=== PATIENT | female | born 1965 | race Caucasian/White ===

== ENCOUNTER 2020-08-05 09:22 | Emergency (ER) | payer MEDICAID ==
[2012-05-12 19:29] VITALS: BP 170/90
[2020-08-05] MEDS ORDERED: MORPHINE SULFATE 4 MG INJ IV ONE (09:55)
[2020-08-05] MEDS ORDERED: Zofran 4 MG/2 ML VIAL IV ONE (09:55)
[2020-08-05 10:15] LABS: Absolute Neutrophil Ct (ANC) 6.44 (1.4-6.9); BASOPHIL % 0.2 % (0.0-0.4); Basophil (Absolute #) 0.02 (0-0.4); Eosinophil % 1.9 % (0.00-5.0); Eosinophil (Absolute #) 0.18 (0-0.5); Hematocrit 35.7 % (35-47); Hemoglobin 11.2 gm/dl (12.0-16.0); Lymphocyte (Absolute #) 2.21 (1.0-4.6); Mean Cell Volume 89.3 fl (78-100); Mean Corpuscular Hgb Concent. 31.4 g/dl (32-36); Mean Platelet Volume 8.8 fl (7.5-11.0); Monocyte (Absolute #) 0.76 (0.0-1.3); Monocytes % 7.9 % (0.0-12.0); Platelet Count 409 K/mm3 (150-450); Red Cell Distribution Width 14.9 % (11.5-14.0); White Blood Count 9.6 K/mm3 (4.0-10.5)
[2020-08-05] MEDS ORDERED: Zofran 4 MG/2 ML VIAL ONE (10:17)
[2020-08-05] MEDS ORDERED: MORPHINE SULFATE 4 MG INJ ONE (10:17)
[2020-08-05 10:28] LABS: ALBUMIN 3.5 g/dL (3.5-5.0); ALKALINE PHOSPHATASE 73 U/L (38-126); ANION GAP 10.1 MEQ/L (5-15); BLOOD UREA NITROGEN 15 mg/dL (7-17); CHLORIDE 98 mmol/L (98-107); Calcium 8.8 mg/dL (8.4-10.2); Carbon Dioxide 31 mmol/L (22-30); Creatinine 1 0.61 mg/dL (0.52-1.04); EST GLOMERULAR FILTRATION RATE > 60.0 ML/MIN; Glucose 101 mg/dL (74-106); Potassium 3.5 mmol/L (3.5-5.1); SGOT/AST 19 U/L (14-36); SGPT/ALT 20 U/L (0-35); SODIUM 136 mmol/L (137-145); Total Protein 7.5 g/dL (6.3-8.2)
[2020-08-05] MEDS ORDERED: CLINDAMYCIN-D5W 600 MG/50 ML*** 600 MG/50 ML BAG IV STA (11:29)
[2020-08-05] MEDS ORDERED: CLINDAMYCIN-D5W 600 MG/50 ML*** 600 MG/50 ML BAG IV ONE (12:00)
--- NOTE | 2020-08-05 12:02 | ERPHSYRPT ---
- History of Present Illness Time Seen by Provider: 08/05/20 09:39 Source: patient Exam Limitations: no limitations Patient Subjective Stated Complaint: Pain/swelling to right knee that began yesterday when she awoke. Pt awoke this AM with increased redness/swelling/blisters to right knee. Pt has prior hx of knee replacement 3 years ago to right knee. Triage Nursing Assessment: Pt complains of right knee pain rated 10/10 and described sharp. Pain began yesterday AM at 0940 with redness/swelling/edema noted to right knee. Pt awoke this AM with blisters noted to area along with other findings. Right knee has redness/swelling/blisters noted, right knee is hot to touch. Right knee at anterior aspect of patella has open wound seen measuring 1 cm in diameter. Physician History: 54 years old female with multiple medical problems including diabetes mellitus, right knee replacement 3 years ago presented in the ER with sudden onset redness and pain right knee since yesterday with progressive worsening associated with moderate intensity dull to sharp pain which is aggravated with ambulation and better with being still. She denies any fever chills fall or trauma to the knee. Method of Injury: unknown Occurred: yesterday Quality: constant, sharpness Severity of Pain-Max: moderate Severity of Pain-Current: moderate Lower Extremities Pain: knee: right Modifying Factors: Improves With: immobilization, rest. Worsens With: movement Associated Symptoms: none Allergies/Adverse Reactions: codeine [Codeine] Allergy (Mild, Verified 08/05/20 10:13) N&V Penicillins Allergy (Mild, Verified 08/05/20 10:13) Rash Home Medications: Acetaminophen 325 mg [Tylenol 325 mg] 650 mg PO Q4HPRN PRN 02/15/12 [History] Albuterol Common Canister [Proventil Common Canister] 2 puff IH Q4HPRN PRN 02/15/12 [History] Albuterol/Ipratropium 3ml Neb* [DUONEB 0.5-3 MG/3 ml Neb] 3 ml IH Q2H/PRN PRN 02/15/12 [History] Aripiprazole [Abilify] 5 mg PO DAILY 02/15/12 [History] Atenolol [Tenormin] 25 mg PO BID 02/15/12 [History] Bisacodyl 10 mg [Dulcolax 10 MG SUPP] 10 mg RC DAILY PRN PRN 02/15/12 [History] Budesonide 0.5 mg/2 ml [Pulmicort 0.5 mg/2 ml Respules] 0.5 mg IH BID 02/15/12 [History] Docusate Sodium 100 mg [Colace 100 MG] 100 mg PO BID 02/15/12 [History] Fluoxetine HCl [Prozac] 40 mg PO DAILY 02/15/12 [History] Hydrocodone Bit/Acetaminophen [Vicodin 5-500 Tablet] 1 each PO Q6HPRN PRN 02/15/12 [History] Lorazepam 0.5 mg [Ativan 0.5 MG] 0.5 mg PO BID 02/15/12 [History] Lorazepam [Ativan] 2 mg PO HS 02/15/12 [History] Magnesium Hydroxide 30 ml [Milk of Magnesia 30 ml] 30 ml PO HSPRN PRN 02/15/12 [History] Modafinil [Provigil] 200 mg PO DAILY 02/15/12 [History] Multivit-Min/Ferrous Sulfate [Multilex] 1 each PO DAILY 02/15/12 [History] Tramadol HCl 50 mg [Ultram 50 mg] 50 mg PO Q6HPRN PRN 02/15/12 [History] Diphenhydramine HCl 25 mg 50 mg PO Q6H PRN PRN 05/12/12 [History] Docusate Sodium 100 mg 100 mg PO BID 05/12/12 [History] Losartan Potassium 100 mg PO DAILY 05/12/12 [History] Hx Tetanus, Diphtheria Vaccination/Date Given: No (unknown) Hx Influenza Vaccination/Date Given: No Hx Pneumococcal Vaccination/Date Given: Yes (unknown when) Immunizations Up to Date: Yes Travel Risk - International Travel Have you traveled outside of the country in past 3 weeks: No - Coronavirus Screening Are you exhibiting any of the following symptoms?: No Close contact with a COVID-19 positive Pt in past 14-21 Days: No - Review of Systems Constitutional: No Symptoms Eyes: No Symptoms Ears, Nose, & Throat: No Symptoms Respiratory: No Symptoms Cardiac: No Symptoms Abdominal/Gastrointestinal: No Symptoms Genitourinary Symptoms: No Symptoms Musculoskeletal: Joint Redness, Joint Pain, Joint Swelling Neurological: No Symptoms Psychological: Anxiety Endocrine: No Symptoms Hematologic/Lymphatic: No Symptoms Immunological/Allergic: No Symptoms - Past Medical History Pertinent Past Medical History: Yes Neurological History: Other Cardiac History: No Pertinent History Respiratory History: Asthma, COPD, Sleep Apnea Endocrine Medical History: Diabetes Type II Musculoskeletal History: No Pertinent History GI Medical History: Crohns Disease History: No Pertinent History Psycho-Social History: No Pertinent History Female Reproductive Disorders: No Pertinent History Other Medical History: Down syndrome reported - Past Surgical History Past Surgical History: Yes Neuro Surgical History: No Pertinent History Cardiac: No Pertinent History Respiratory: No Pertinent History Gastrointestinal: No Pertinent History Genitourinary: No Pertinent History Musculoskeletal: Joint Replacement Female Surgical History: Section Other Surgical History: right knee replacement - Social History Smoking Status: Former smoker Exposure to second hand smoke: No Drug Use: none Patient Lives Alone: No Significant Family History: no pertinent family hx - Female History Hx Last Menstrual Period: menapause Hx Now: No - Nursing Vital Signs Nursing Vital Signs: Initial Vital Signs Temperature 98.1 F 08/05/20 09:46 Pulse Rate 88 08/05/20 09:46 Respiratory Rate 20 08/05/20 09:46 Blood Pressure 142/106 08/05/20 09:46 O2 Sat by Pulse Oximetry 97 08/05/20 09:46 Pain Scale Pain Intensity 5 - Physical Exam General Appearance: no apparent distress, alert Eyes, Ears, Nose, Throat Exam: pharynx normal Neck Exam: normal inspection, supple, full range of motion Cardiovascular/Respiratory Exam: normal breath sounds, regular rate/rhythm Gastrointestinal/Abdominal Exam: non-tender, soft, no organomegaly Back Exam: normal inspection, normal range of motion Hips Exam: bilateral: non-tender, normal inspection, normal range of motion Legs Exam: bilateral leg: non-tender, normal inspection, normal range of motion, no evidence of injury Knees Exam: right knee: pain, soft tissue tenderness, swelling (Right anterolateral knee swelling and erythema), left knee: non-tender, normal inspection, normal range of motion, no evidence of injury, bilateral knee: bone tenderness Ankle Exam: bilateral ankle: non-tender, normal inspection, normal range of motion, no evidence of injury Neuro/Tendon Exam: normal sensation, normal motor functions Mental Status Exam: alert, oriented x 3, cooperative Skin Exam: normal color SpO2 Interpretation: normal SpO2: 96 O2 Delivery: Room Air Ordered Tests: Active Orders 24 hr Category Date Time Status IV Insertion STAT Care 08/05/20 09:55 Active KNEE (3 VIEWS) Stat Exams 08/05/20 11:03 Taken BLOOD CULTURE Stat Lab 08/05/20 10:10 Received CBC W DIFF Stat Lab 08/05/20 10:05 Completed CMP Stat Lab 08/05/20 10:05 Completed Lactic Acid Stat Lab 08/05/20 09:55 Completed Medication Summary Generic Name Dose Route Start Last Admin Trade Name Freq PRN Reason Stop Dose Admin Ceftriaxone Sodium/Dextrose 1 g in 50 mls @ 100 mls/hr 08/05/20 12:16 Rocephin 1 Gm-D5w 50 Ml Bag IV 08/05/20 12:45 STAT STA Discontinued Medications Generic Name Dose Route Start Last Admin Trade Name Freq PRN Reason Stop Dose Admin Clindamycin HCl/Dextrose 600 mg in 50 mls @ 100 mls/hr 08/05/20 11:29 08/05/20 12:01 Clindamycin-D5w 600 Mg/50 Ml IV 08/05/20 11:58 100 ml/hr STAT STA 100 mls/hr Administration Clindamycin HCl/Dextrose Confirm 08/05/20 12:00 Clindamycin-D5w 600 Mg/50 Ml Administered 08/05/20 12:01 Dose 600 mg in 50 mls @ ud IV .STK-MED ONE Morphine Sulfate 4 mg 08/05/20 09:55 08/05/20 10:26 Morphine Sulfate 4 Mg Inj IV 08/05/20 09:56 4 mg STAT ONE Administration Morphine Sulfate Confirm 08/05/20 10:17 Morphine Sulfate 4 Mg Inj Administered 08/05/20 10:18 Dose 4 mg .ROUTE .STK-MED ONE Ondansetron HCl 4 mg 08/05/20 09:55 08/05/20 10:26 Zofran 4 Mg/2 Ml Vial IV 08/05/20 09:56 4 mg STAT ONE Administration Ondansetron HCl Confirm 08/05/20 10:17 Zofran 4 Mg/2 Ml Vial Administered 08/05/20 10:18 Dose 4 mg .ROUTE .STK-MED ONE Lab/Rad Data: Laboratory Result Diagrams 08/05/20 10:05 08/05/20 10:05 Laboratory Results 08/05/20 08/05/20 08/05/20 Range/Units 10:05 10:05 09:55 WBC 9.6 (4.0-10.5) K/mm3 RBC 4.00 L (4.1-5.4) M/mm3 Hgb 11.2 L (12.0-16.0) gm/dl Hct 35.7 (35-47) % MCV 89.3 (78-100) fl MCH 28.0 (26-32) pg MCHC 31.4 L (32-36) g/dl RDW 14.9 H (11.5-14.0) % Plt Count 409 (150-450) K/mm3 MPV 8.8 (7.5-11.0) fl Gran % 67.0 H (36.0-66.0) % Eos # (Auto) 0.18 (0-0.5) Absolute Lymphs (auto) 2.21 (1.0-4.6) Absolute Monos (auto) 0.76 (0.0-1.3) Lymphocytes % 23.0 L (24.0-44.0) % Monocytes % 7.9 (0.0-12.0) % Eosinophils % 1.9 (0.00-5.0) % Basophils % 0.2 (0.0-0.4) % Absolute Granulocytes 6.44 (1.4-6.9) Basophils # 0.02 (0-0.4) Sodium 136 L (137-145) mmol/L Potassium 3.5 (3.5-5.1) mmol/L Chloride 98 (98-107) mmol/L Carbon Dioxide 31 H (22-30) mmol/L Anion Gap 10.1 (5-15) MEQ/L BUN 15 (7-17) mg/dL Creatinine 0.61 (0.52-1.04) mg/dL Estimated GFR > 60.0 ML/MIN Glucose 101 (74-106) mg/dL Lactic Acid 1.4 (0.4-2.0) Calcium 8.8 (8.4-10.2) mg/dL Total Bilirubin 0.40 (0.2-1.3) mg/dL AST 19 (14-36) U/L ALT 20 (0-35) U/L Alkaline Phosphatase 73 (38-126) U/L Serum Total Protein 7.5 (6.3-8.2) g/dL Albumin 3.5 (3.5-5.0) g/dL - Progress Progress: pain not gone completely, re-examined Progress Note: 08/05/20 12:02 54 years old is evaluated for right knee pain and swelling in the presence of hardware in the joint. I have obtained x-rays which did not show any obvious fracture dislocation, official read is pending. She has a normal white count, lactate, grossly unremarkable chemistries. She is afebrile, not tachycardic. She does have cellulitis, given a dose of clindamycin and a Rocephin shot. I would continue with clindamycin to go home and recommended outpatient follow-up with Ortho or in the ER tomorrow for reevaluation Counseled pt/family regarding: lab results, diagnosis, need for follow-up, rad results - Departure Departure Disposition: Home Clinical Impression: Cellulitis of knee, right Condition: Stable Critical Care Time: No Referrals: DOCTOR,NO FAMILY [Primary Care Provider] - RAY MCARTHUR MD [ACTIVE STAFF] - (tomorrow for re evaluation ) YOU KING NP [NON-STAFF PHY W/O PRIVILEGES] - (tomorrow for re evaluation) Instructions: Cellulitis (Skin Infection), Adult (DC) Additional Instructions: Tylenol/ibuprofen as needed. Ply ice, avoid exertional activities. Follow-up with Ortho clinic/primary care for reevaluation tomorrow. Return to ER for increasing pain swelling redness/fever or chills. Prescriptions: Clindamycin HCl 150 mg [Cleocin 150 mg Capsule] 2 cap PO QID #56 capsule
[2020-08-05] MEDS ORDERED: ROCEPHIN 1 Gm-D5w 50 ml Bag** 1 G/50 ML IVPB IV STA (12:16)
[2020-08-05] MEDS ORDERED: ROCEPHIN 1 Gm-D5w 50 ml Bag** 1 G/50 ML IVPB IV ONE (12:23)
[2020-08-05] MEDS ORDERED: Adacel Vial IM ONE (12:28)
[2020-08-05 12:38] VITALS: BP 139/92; PULSE 80; O2SAT 95
--- NOTE | 2020-08-05 19:48 | XRAY ---
Indication: Pain and swelling. Comparison: None 3 view right knee demonstrates osteopenia, total knee arthroplasty with intact prosthesis/articulation, minimal vascular calcifications, and anterior soft tissue swelling. No other bony, articular, or soft tissue abnormalities.
== END 2020-08-05 12:42 | disposition home or self-care (01) ==
LOC: ED 09:22
DX: L03.115 Cellulitis of right lower limb (principal); M25.561 Pain in right knee; E11.9 Type 2 diabetes mellitus without complications; Z96.651 Presence of right artificial knee joint; Z79.899 Other long term (current) drug therapy; J44.9 Chronic obstructive pulmonary disease, unspecified; G47.30 Sleep apnea, unspecified
CPT/HCPCS: 36000; 36415; 73562; 80053; 83605; 85025; 87040; 96365; 96374; 96375; 99284; J0696; J2270; J2405

== ENCOUNTER 2020-08-11 01:51 | Observation (INO) | payer MEDICAID, OTHER ==
[2020-08-11] MEDS ORDERED: PHARMACY DOSING REQUIRED: VANCOMYCIN IV ONE ×2 (02:07→03:00)
[2020-08-11] MEDS ORDERED: Azactam 1 GM/100 ML D5W 1 GM/100 ML IVPB IV ONE (02:07)
[2020-08-11] MEDS ORDERED: Sodium Chloride 0.9% 1000 ML 1,000 ML IV SCH (02:15)
[2020-08-11] MEDS ORDERED: VANCOMYCIN 1 GRAM/200 ML BAG 1 GM/200 ML PIGGYBACK IV ONE ×3 (02:23→03:33)
--- NOTE | 2020-08-11 02:26 | ERPHSYRPT ---
- History of Present Illness Time Seen by Provider: 08/11/20 02:23 Source: patient Exam Limitations: no limitations Patient Subjective Stated Complaint: "I have an infection in my knee and I think it is in my bloodstream." Triage Nursing Assessment: patient presented alert et oriented answering questions appropriately. Patient reported having an infection in the right knee that is not responded to home prescriptions. patient reported her family doctor told her she needed to be admitted to the hospital. Patient reported that pain is spreading to the lower right extremity. Denied any numbness, tingling, or recent injuries to the extremity in question. Pupils 3mm brisk direct and consensual reaction to light. neck supple non-tender without lymphadenopathy. Symmetrical chest expansion. Lungs clear to auscultation bilateral. Heart tones S1 S2 regular rate and rhythm without extra sounds. Peripheral pulses +2 bilateral. Noted edema/erythema to the anterior aspect of the right knee with erythema on the distal third of the right thigh and proximal third of the tibial aspect. No noted pustules/exudate Physician History: "I have an infection in my knee and I think it is in my bloodstream." Patient reported having an infection in the right knee that is not responded to home prescriptions. patient reported her family doctor told her she needed to be admitted to the hospital. Patient reported that pain is spreading to the lower right extremity Occurred: days ago Quality: constant Severity of Pain-Max: moderate Severity of Pain-Current: moderate Lower Extremities Pain: knee: right Associated Symptoms: unable to bear weight Allergies/Adverse Reactions: codeine [Codeine] Allergy (Mild, Verified 08/11/20 02:00) N&V Penicillins Allergy (Mild, Verified 08/11/20 02:00) Rash Home Medications: Albuterol Common Canister [Proventil Common Canister] 2 puff IH Q4HPRN PRN 02/15/12 [History] Albuterol/Ipratropium 3ml Neb* [DUONEB 0.5-3 MG/3 ml Neb] 3 ml IH Q2H/PRN PRN 02/15/12 [History] Aripiprazole [Abilify] 5 mg PO DAILY 02/15/12 [History] Atenolol [Tenormin] 25 mg PO BID 02/15/12 [History] Bisacodyl 10 mg [Dulcolax 10 MG SUPP] 10 mg RC DAILY PRN PRN 02/15/12 [History] Budesonide 0.5 mg/2 ml [Pulmicort 0.5 mg/2 ml Respules] 0.5 mg IH BID 02/15/12 [History] Docusate Sodium 100 mg [Colace 100 MG] 100 mg PO BID 02/15/12 [History] Fluoxetine HCl [Prozac] 40 mg PO DAILY 02/15/12 [History] Lorazepam [Ativan] 2 mg PO AC 02/15/12 [History] Modafinil [Provigil] 200 mg PO DAILY 02/15/12 [History] Tramadol HCl 50 mg [Ultram 50 mg] 50 mg PO Q6HPRN PRN 02/15/12 [History] Losartan Potassium 100 mg PO DAILY 05/12/12 [History] Hx Tetanus, Diphtheria Vaccination/Date Given: Yes Hx Influenza Vaccination/Date Given: No Hx Pneumococcal Vaccination/Date Given: No (unknown when) Travel Risk - International Travel Have you traveled outside of the country in past 3 weeks: No - Coronavirus Screening Are you exhibiting any of the following symptoms?: No Close contact with a COVID-19 positive Pt in past 14-21 Days: No - Review of Systems Constitutional: Fever, Chills Eyes: No Symptoms Ears, Nose, & Throat: No Symptoms Respiratory: No Cough, No Dyspnea Cardiac: No Chest Pain, No Edema, No Syncope Abdominal/Gastrointestinal: No Abdominal Pain, No Nausea, No Vomiting, No Diarrhea Genitourinary Symptoms: No Dysuria Musculoskeletal: Joint Redness (right knee), Joint Swelling, No Back Pain, No Neck Pain Skin: No Rash Neurological: No Dizziness, No Focal Weakness, No Sensory Changes Psychological: No Symptoms Endocrine: No Symptoms All Other Systems: Reviewed and Negative - Past Medical History Pertinent Past Medical History: Yes Neurological History: Other Cardiac History: No Pertinent History Respiratory History: Asthma, COPD, Sleep Apnea Endocrine Medical History: Diabetes Type II Musculoskeletal History: No Pertinent History GI Medical History: Crohns Disease History: No Pertinent History Psycho-Social History: No Pertinent History Female Reproductive Disorders: No Pertinent History Other Medical History: Down syndrome reported - Past Surgical History Past Surgical History: Yes Neuro Surgical History: No Pertinent History Cardiac: No Pertinent History Respiratory: No Pertinent History Gastrointestinal: No Pertinent History Genitourinary: No Pertinent History Musculoskeletal: Joint Replacement Female Surgical History: Section Other Surgical History: right knee replacement. left knee replacement - Social History Smoking Status: Former smoker Exposure to second hand smoke: No Drug Use: none Patient Lives Alone: No Significant Family History: no pertinent family hx - Nursing Vital Signs Nursing Vital Signs: Initial Vital Signs Pulse Rate 84 08/11/20 01:52 Respiratory Rate 20 08/11/20 01:52 Blood Pressure 166/103 08/11/20 01:52 O2 Sat by Pulse Oximetry 98 08/11/20 01:52 Pain Scale Pain Intensity 10 - Physical Exam General Appearance: alert Eyes, Ears, Nose, Throat Exam: moist mucous membranes Neck Exam: non-tender, supple Cardiovascular/Respiratory Exam: chest non-tender, normal breath sounds, regular rate/rhythm, no respiratory distress Gastrointestinal/Abdominal Exam: non-tender, guarding Back Exam: normal inspection, No vertebral tenderness Knees Exam: right knee: joint effusion, soft tissue tenderness, swelling Neuro/Tendon Exam: normal sensation, normal motor functions Mental Status Exam: alert, oriented x 3, cooperative Skin Exam: normal color, warm, dry SpO2: 98 - Course Nursing assessment & vital signs reviewed: Yes Ordered Tests: Active Orders 24 hr Category Date Time Status BLOOD CULTURE Stat Lab 08/11/20 02:06 Ordered CBC W DIFF Stat Lab 08/11/20 02:06 Ordered CMP Stat Lab 08/11/20 02:06 Ordered Lactic Acid Stat Lab 08/11/20 02:06 Ordered Medication Summary Generic Name Dose Route Start Last Admin Trade Name Freq PRN Reason Stop Dose Admin Sodium Chloride 1,000 mls @ 50 mls/hr 08/11/20 02:15 Sodium Chloride 0.9% 1000 Ml IV 09/10/20 02:14 .Q20H RUSSELL Aztreonam 1 gm in 100 mls @ 200 mls/hr 08/11/20 02:07 Azactam 1 Gm/100 Ml D5w IV 08/11/20 02:36 STAT ONE Discontinued Medications Generic Name Dose Route Start Last Admin Trade Name Freq PRN Reason Stop Dose Admin Non-Formulary Medication 1 each 08/11/20 02:07 Pharmacy Dosing Required: Vancomycin IV 08/11/20 02:08 STAT ONE - Progress Progress: unchanged Discussed with DrLeidy: Meka Angel Counseled pt/family regarding: lab results, diagnosis, need for follow-up - Departure Departure Disposition: In-patient Admission Clinical Impression: Cellulitis of knee, right Condition: Fair Critical Care Time: Yes Critical Care Time(excluding separately billable procedures): Critical 30-74 mins Referrals: KENDRA ALMODOVAR MD [Primary Care Provider] -
[2020-08-11 02:32] LABS: BASOPHIL % 0.2 % (0.0-0.4); Basophil (Absolute #) 0.02 (0-0.4); Eosinophil % 1.5 % (0.00-5.0); Eosinophil (Absolute #) 0.17 (0-0.5); Hematocrit 35.1 % (35-47); Hemoglobin 12.2 gm/dl (12.0-16.0); Lymphocyte (Absolute #) 3.84 (1.0-4.6); Lymphocytes % 33.6 % (24.0-44.0); Mean Cell Volume 88.9 fl (78-100); Mean Corpuscular Hemoglobin 30.9 pg (26-32); Mean Corpuscular Hgb Concent. 34.8 g/dl (32-36); Mean Platelet Volume 8.4 fl (7.5-11.0); Monocyte (Absolute #) 0.89 (0.0-1.3); Monocytes % 7.8 % (0.0-12.0); Neutrophil % 56.9 % (36.0-66.0); Platelet Count 503 K/mm3 (150-450); Red Blood Count 3.95 M/mm3 (4.1-5.4); Red Cell Distribution Width 15.7 % (11.5-14.0); White Blood Count 11.4 K/mm3 (4.0-10.5)
[2020-08-11] MEDS ORDERED: Sodium Chloride 0.9% 1000 ML 1,000 ML ONE (02:34)
[2020-08-11] MEDS ORDERED: AZACTAM 1 GM ONE (02:41)
[2020-08-11] MEDS ORDERED: D5w 100ML Mini Bag 100 ML 100 ML IV ONE (02:41)
[2020-08-11 02:44] LABS: ALBUMIN 3.4 g/dL (3.5-5.0); ALKALINE PHOSPHATASE 60 U/L (38-126); ANION GAP 8.2 MEQ/L (5-15); BLOOD UREA NITROGEN 14 mg/dL (7-17); CHLORIDE 99 mmol/L (98-107); Calcium 8.8 mg/dL (8.4-10.2); Carbon Dioxide 31 mmol/L (22-30); Creatinine 1 0.67 mg/dL (0.52-1.04); EST GLOMERULAR FILTRATION RATE > 60.0 ML/MIN; Glucose 100 mg/dL (74-106); Potassium 4.3 mmol/L (3.5-5.1); SGOT/AST 18 U/L (14-36); SGPT/ALT 26 U/L (0-35); SODIUM 134 mmol/L (137-145); Total Protein 7.5 g/dL (6.3-8.2)
[2020-08-11] MEDS ORDERED: HUMALOG SQ PRN (03:00)
[2020-08-11] MEDS ORDERED: FLUZONE QUAD 2020-2021 SYRINGE IM ONE (04:31)
[2020-08-11] MEDS: Sodium Chloride 0.9% 1000 ML 1,000 ML IV SCH ×3 (05:31→22:06)
[2020-08-11] MEDS ORDERED: DUONEB 0.5-3 MG/3 ml Neb IH PRN (05:53)
[2020-08-11] MEDS ORDERED: VENTOLIN COMMON CANISTER IH PRN (05:54)
[2020-08-11] MEDS ORDERED: DUONEB 0.5-3 MG/3 ml Neb IH ONE (07:27)
[2020-08-11] MEDS ORDERED: PULMICORT 0.5 MG/2 ML RESPULES IH ONE (07:27)
[2020-08-11] MEDS: PULMICORT 0.5 MG/2 ML RESPULES IH SCH ×2 (07:28→19:52)
[2020-08-11] MEDS: Sodium Chloride 3 ML UD NEBULES IH SCH ×2 (07:28→19:52)
[2020-08-11] MEDS: Prozac 20 MG PO SCH (09:31)
[2020-08-11] MEDS: Glucophage XR 500 MG PO SCH ×2 (09:31→22:04)
[2020-08-11] MEDS: Abilify 10 MG PO SCH (09:31)
[2020-08-11] MEDS: Levofloxacin 500MG/100ML D5W 500 MG/100 ML BAG IV SCH (09:31)
[2020-08-11] MEDS: DELTASONE 20 MG PO SCH (09:31)
[2020-08-11] MEDS: PROTONIX 40 MG IV IV SCH (09:31)
[2020-08-11] MEDS: ENOXAPARIN SODIUM SQ SCH (09:31)
[2020-08-11] MEDS: Ditropan XL 5 MG PO SCH ×2 (09:32→22:04)
[2020-08-11] MEDS: HUMALOG SQ SCH ×2 (09:55→16:25)
[2020-08-11] MEDS: Wellbutrin XL 150 MG PO SCH (09:56)
[2020-08-11] MEDS ORDERED: NON-FORMULARY ITEM (Fluoxetine Hcl [Prozac] 40 MG) PO SCH (10:00)
[2020-08-11] MEDS ORDERED: LIRAGLUTIDE SQ SCH (10:00)
[2020-08-11] MEDS ORDERED: NON-FORMULARY ITEM (Lorazepam [Ativan] 2 MG) PO SCH (10:00)
[2020-08-11] MEDS ORDERED: NON-FORMULARY ITEM (Atorvastatin Calcium [Atorvastatin Calcium] 20 MG) PO SCH (10:00)
[2020-08-11] MEDS ORDERED: METFORMIN HCL 500 MG PO SCH (10:00)
[2020-08-11] MEDS ORDERED: NON-FORMULARY ITEM (Fluticasone/Vilanterol [Breo Ellipta 100-25 Mcg Inh] 1 PUFF) IH SCH (10:00)
[2020-08-11] MEDS ORDERED: ARIPIPRAZOLE 10 MG PO SCH (10:00)
[2020-08-11] MEDS ORDERED: NON-FORMULARY ITEM (Lisinopril [Lisinopril] 40 MG) PO SCH (10:00)
[2020-08-11] MEDS: Advair Hfa 115/21 Common canister IH SCH ×2 (10:24→19:55)
[2020-08-11] MEDS: Zestril 20 MG PO SCH (10:34)
[2020-08-11] MEDS: Lopressor 50 MG PO SCH ×2 (10:34→22:04)
[2020-08-11] MEDS: VANCOMYCIN 1.5 GRAM/300 ML BAG 1.5 GM/300 ML PIGGYBACK IV SCH (11:16)
[2020-08-11] MEDS ORDERED: MEDICATION INTERVENTION MC SCH (11:30)
[2020-08-11] MEDS ORDERED: Zofran 4 MG/2 ML VIAL IV PRN (12:38)
[2020-08-11] MEDS ORDERED: INSULIN GLARGINE HUM REC ANLOG 45 UNIT SQ SCH (22:00)
[2020-08-11] MEDS: Lantus Insulin SQ SCH (22:04)
[2020-08-11] MEDS: ZOCOR 20MG PO SCH (22:04)
[2020-08-11] MEDS: Singulair 10 MG PO SCH (22:04)
[2020-08-11] MEDS: TYLENOL 325 MG PO PRN (22:06)
[2020-08-12] MEDS: VANCOMYCIN 1.5 GRAM/300 ML BAG 1.5 GM/300 ML PIGGYBACK IV SCH ×2 (05:53→23:19)
[2020-08-12] MEDS: TYLENOL 325 MG PO PRN ×2 (08:33→22:45)
[2020-08-12] MEDS: HUMALOG SQ SCH ×2 (08:33→17:12)
[2020-08-12] MEDS: PULMICORT 0.5 MG/2 ML RESPULES IH SCH ×2 (08:38→17:25)
[2020-08-12] MEDS: Sodium Chloride 3 ML UD NEBULES IH SCH ×2 (08:38→17:25)
[2020-08-12] MEDS: Advair Hfa 115/21 Common canister IH SCH ×2 (08:38→17:25)
[2020-08-12] MEDS ORDERED: FLUZONE QUAD 2020-2021 SYRINGE IM ONE (10:00)
[2020-08-12] MEDS: PROTONIX 40 MG IV IV SCH (10:21)
[2020-08-12] MEDS: Prozac 20 MG PO SCH (10:22)
[2020-08-12] MEDS: Zestril 20 MG PO SCH (10:22)
[2020-08-12] MEDS: Lopressor 50 MG PO SCH ×2 (10:22→22:45)
[2020-08-12] MEDS: Abilify 10 MG PO SCH (10:22)
[2020-08-12] MEDS: DELTASONE 20 MG PO SCH (10:23)
[2020-08-12] MEDS: Ditropan XL 5 MG PO SCH ×2 (10:23→22:45)
[2020-08-12] MEDS: Glucophage XR 500 MG PO SCH ×2 (10:23→22:45)
[2020-08-12] MEDS: Levofloxacin 500MG/100ML D5W 500 MG/100 ML BAG IV SCH (10:23)
[2020-08-12] MEDS: Wellbutrin XL 150 MG PO SCH (10:23)
[2020-08-12] MEDS: ENOXAPARIN SODIUM SQ SCH (10:30)
--- NOTE | 2020-08-12 11:25 | PCM.HP ---
History of Present Illness - Chief Complaint Chief Complaint: cellulitis right knee Date: 08/12/20 History of Present Illness: is a 54 year old female. Pt. notes failed outpatient treatment of sepsis right knee and presented to er with increased pain and redness to the right knee. - Review of Systems Constitutional: No Fever, No Chills Eyes: No Symptoms Ears, Nose, & Throat: No Symptoms Respiratory: No Cough, No Short Of Breath Cardiac: No Chest Pain, No Edema, No Syncope Abdominal/Gastrointestinal: No Abdominal Pain, No Nausea, No Vomiting, No Diarrhea Genitourinary Symptoms: No Dysuria Musculoskeletal: Arthralgias, Joint Redness, Joint Pain, Joint Swelling, No Back Pain, No Neck Pain Skin: Cellulitis, No Rash Neurological: No Dizziness, No Focal Weakness, No Sensory Changes Psychological: No Symptoms Endocrine: No Symptoms Hematologic/Lymphatic: No Symptoms Immunological/Allergic: No Symptoms Medications & Allergies Home Medications: Home Medication List Albuterol Common Canister [Proventil Common Canister] 2 puff IH Q4HPRN PRN 0 02/15/12 [History Confirmed 08/11/20] Albuterol/Ipratropium 3ml Neb* [DUONEB 0.5-3 MG/3 ml Neb] 3 ml IH Q2H/PRN PRN 02/15/12 [History Confirmed 08/11/20] Aripiprazole [Abilify] 10 mg PO DAILY 02/15/12 [History Confirmed 08/11/20] Budesonide 0.5 mg/2 ml [Pulmicort 0.5 mg/2 ml Respules] 0.5 mg IH BID 02/15/12 [History Confirmed 08/11/20] Fluoxetine HCl [Prozac] 40 mg PO DAILY 02/15/12 [History Confirmed 08/11/20] ARIPiprazole [Aripiprazole] 10 mg PO DAILY 08/11/20 [History Confirmed 08/11/20] Adalimumab [Humira Pen] 45 units SQ WEEKLY 08/11/20 [History Confirmed 08/11/20] Atorvastatin Calcium 20 mg PO DAILY 08/11/20 [History Confirmed 08/11/20] Bupropion HCl [Bupropion Xl] 150 mg PO DAILY 08/11/20 [History Confirmed 08/11/20] Fluticasone/Vilanterol [Breo Ellipta 100-25 Mcg INH] 1 puff IH DAILY 08/11/20 [History Confirmed 08/11/20] Insulin Glargine,Hum.rec.anlog [Basaglar Ramonikpen U-100] 45 unit SQ HS 08/11/20 [History Confirmed 08/11/20] Insulin Lispro [Admelog] 7 unit SQ BID 08/11/20 [History Confirmed 08/11/20] Liraglutide [Victoza 2-Levar] 1.8 ml SQ BID 08/11/20 [History Confirmed 08/11/20] Lisinopril 40 mg PO DAILY 08/11/20 [History Confirmed 08/11/20] Metformin HCl [Metformin ER Gastric] 500 mg PO BID 08/11/20 [History Confirmed 08/11/20] Metoprolol Tartrate 50 mg PO BID 08/11/20 [History Confirmed 08/11/20] Montelukast Sodium 10 mg [Singulair 10 MG] 10 mg PO QHS 08/11/20 [History Confirmed 08/11/20] Oxybutynin Chloride Xl 5 mg [Ditropan XL 5 MG] 5 mg PO BID 08/11/20 [History Confirmed 08/11/20] Prednisone 20 mg [Deltasone 20 mg] 40 mg PO DAILY 08/11/20 [History Confirmed 08/11/20] Allergies/Adverse Reactions: Allergies Allergy/AdvReac Type Severity Reaction Status Date / Time codeine [Codeine] Allergy Mild N&V Verified 08/11/20 04:34 Penicillins Allergy Mild Rash Verified 08/11/20 04:34 - Past Medical History Past Medical History: Yes Neurological History: Other ENT History: No Pertinent History Cardiac History: No Pertinent History, Hypertension Respiratory History: Asthma, COPD, Sleep Apnea Endocrine Medical History: Diabetes Type II Musculoskelatal History: No Pertinent History GI Medical History: Crohns Disease History: No Pertinent History Pyscho-Social History: Anxiety Reproductive Disorders: No Pertinent History Comment: Down syndrome reported - Female History Are you now?: No - Past Surgical History Past Surgical History: Yes Neuro Surgical History: No Pertinent History Cardiac History: No Pertinent History Respiratory Surgery: No Pertinent History GI Surgical History: No Pertinent History Genitourinary Surgical Hx: No Pertinent History Musculskeletal Surgical Hx: Joint Replacement Female Surgical History: Hysterectomy, Section Other Surgical History: right knee replacement. left knee replacement - Social History Smoking Status: Former smoker How long have you smoked: 15 years Exposure to second hand smoke: No Alcohol: None Drug Use: none Significant Family History: no pertinent family hx - Physical Exam Vital Signs: Vital Signs - 24 hr Temp Pulse Resp BP Pulse Ox 08/12/20 08:41 82 18 95 08/12/20 07:19 98.3 F 64 16 140/69 95 08/12/20 03:21 97.1 F 77 20 154/74 96 08/12/20 00:00 97.7 F 82 19 139/77 96 08/11/20 19:58 97.8 F 78 18 163/83 96 08/11/20 19:55 88 18 95 08/11/20 16:00 97.1 F 80 20 175/95 95 08/11/20 12:00 98.2 F 80 16 167/80 96 General Appearance: no apparent distress Neurologic Exam: alert, cooperative Eye Exam: eyes nml inspection Ears, Nose, Throat Exam: normal ENT inspection Neck Exam: normal inspection, non-tender, supple Respiratory Exam: normal breath sounds Cardiovascular Exam: regular rate/rhythm Gastrointestinal/Abdomen Exam: soft, normal bowel sounds, distention, No tenderness Extremity Exam: inflammation, joint swelling, limited range of motion, tenderness Wound Assessment: Skin/Wound Assessment Wound/Incision Assessment Start: 08/11/20 03:00 Text: Status: Active Freq: Q6H Protocol: Document 08/12/20 02:00 MS (Rec: 08/12/20 02:59 MS [id number]) Wound/Incision Assessment Right Medial Knee Wound Assessment Shift Assessment Wound Stage Non Pressure Wound Drainage Amount None Drainage Odor None/Absent General Appearance Open to air Surrounding Tissue Edematous Comment open to air Wound Photo Photo Taken No Results - Labs Lab/Micro Results: Lab Results-Last 24 Hours 08/11/20 08/11/20 08/11/20 Range/Units 05:00 11:51 16:02 POC Glucometer 113 H 168 H (74 to 106) mg/dL Hemoglobin A1c 5.59 (4.5-6.0) % 08/11/20 08/12/20 08/12/20 Range/Units 20:52 07:07 10:37 POC Glucometer 203 H 139 H 116 H (74 to 106) mg/dL Hemoglobin A1c (4.5-6.0) % Accuchecks Date 08/11/20 Date 08/11/20 Time 12:09 Time 12:02 Assessment/Plan (1) Cellulitis of knee, right Current Visit: Yes Status: Acute Assessment & Plan: continue iv antibiotics Code(s): L03.115 - CELLULITIS OF RIGHT LOWER LIMB
[2020-08-12] MEDS: NORCO 5/325 MG PO PRN ×2 (12:27→17:14)
[2020-08-12] MEDS: Sodium Chloride 0.9% 1000 ML 1,000 ML IV SCH ×2 (17:10→22:46)
[2020-08-12] MEDS ORDERED: TROUGH DRUG LEVELS IJ ONE (21:30)
[2020-08-12] MEDS: ZOCOR 20MG PO SCH (22:45)
[2020-08-12] MEDS: Singulair 10 MG PO SCH (22:45)
[2020-08-12] MEDS: Lantus Insulin SQ SCH (22:45)
[2020-08-13] MEDS: PULMICORT 0.5 MG/2 ML RESPULES IH SCH (05:45)
[2020-08-13] MEDS: Sodium Chloride 3 ML UD NEBULES IH SCH (05:45)
[2020-08-13] MEDS: Advair Hfa 115/21 Common canister IH SCH (05:48)
[2020-08-13] MEDS: Sodium Chloride 0.9% 1000 ML 1,000 ML IV SCH (06:10)
[2020-08-13 08:20] VITALS: O2SAT 94
[2020-08-13] MEDS: HUMALOG SQ SCH (08:42)
[2020-08-13] MEDS ORDERED: Heparin 1000 units/ml (10 Ml vial) 1,000 U in Sodium Chloride 0.9% 500 ML 500 ML IV ONE (09:02)
--- NOTE | 2020-08-13 09:58 | XRAY ---
Indication: Ultrasound guidance for PICC line placement. Initial sonographic imaging of the right upper extremity was performed for localization of patent veins. A patent basilic vein identified above the elbow. Ultrasound guidance was then used for PICC line insertion. Full PICC line insertion is reported separately.
[2020-08-13] MEDS ORDERED: VANCOMYCIN 1.5 GRAM/300 ML BAG 1.5 GM/300 ML PIGGYBACK IV SCH (10:00)
--- NOTE | 2020-08-13 10:00 | XRAY ---
Indication: Long-term IV access and therapy for right knee cellulitis. Informed consent obtained. Patient was placed on the fluoroscopic table in a supine position. Initial sonographic imaging of the right upper extremity was performed for localization of patent veins. The right upper extremity was then prepped and draped in sterile fashion. Tourniquet applied. 1% lidocaine plain used for local anesthesia. Using ultrasound guidance and a micropuncture needle, a basilic vein above the elbow was successfully percutaneously cannulized. A floppy tip 0.018 guidewire inserted. Tourniquet released. Needle was exchanged for a 5 [place] dilator peel away sheath catheter. Ultimately a 5 [place] double-lumen PICC line was inserted over a longer 0.018 guidewire with the tip positioned in the distal SVC using fluoroscopic guidance. Guidewire removed. Both ports flushed with heparinized saline. Catheter was secured. Postoperative instructions and orders given. Patient discharged in good condition. Impression: Technically successful right upper extremity PICC line placement using ultrasound and fluoroscopic guidance. No immediate complications. Approximately 2 cc blood loss. Approximately 0.2 minute of fluoroscopy used. Catheter length is 36 cm.
[2020-08-13] MEDS: DELTASONE 20 MG PO SCH (10:09)
[2020-08-13] MEDS: Abilify 10 MG PO SCH (10:09)
[2020-08-13] MEDS: Glucophage XR 500 MG PO SCH (10:10)
[2020-08-13] MEDS: Levofloxacin 500MG/100ML D5W 500 MG/100 ML BAG IV SCH (10:10)
[2020-08-13] MEDS: Lopressor 50 MG PO SCH (10:10)
[2020-08-13] MEDS: ENOXAPARIN SODIUM SQ SCH (10:10)
[2020-08-13] MEDS: PROTONIX 40 MG IV IV SCH (10:10)
[2020-08-13] MEDS: Ditropan XL 5 MG PO SCH (10:10)
[2020-08-13] MEDS: Prozac 20 MG PO SCH (10:10)
[2020-08-13] MEDS: Zestril 20 MG PO SCH (10:11)
[2020-08-13] MEDS: Wellbutrin XL 150 MG PO SCH (10:11)
[2020-08-13 13:00] VITALS: BP 179/95; PULSE 65
--- NOTE | 2020-08-13 16:22 | PCM.DS ---
Discharge Summary Date of Admission: 08/11/20 02:34 Admitting Physician: KENDRA ALMODOVAR Primary Care Provider: KENDRA ALMODOVAR Allergies Allergies codeine [Codeine] Allergy (Mild, Verified 08/11/20 04:34) N&V Penicillins Allergy (Mild, Verified 08/11/20 04:34) Rash Hospital Summary - Hospital Course Hospital Course: Chief Complaint Diagnosis cellulitis right knee Admission Date Date 08/12/20 Allergies Allergy/AdvReac Type Severity Reaction Status Date / Time codeine [Codeine] Allergy Mild N&V Verified 08/11/20 04:34 Penicillins Allergy Mild Rash Verified 08/11/20 04:34 Vital Signs (Last 24 hours) Temp Pulse Resp BP Pulse Ox 08/13/20 12:00 96.5 F 65 20 179/95 94 L 08/13/20 08:00 97.6 F 64 18 157/78 94 L 08/13/20 05:52 60 16 97 08/13/20 04:00 97.2 F 61 19 160/86 95 08/13/20 00:00 97.6 F 74 16 134/66 97 08/12/20 20:00 97.1 F 79 16 129/60 96 08/12/20 17:29 81 20 94 L Home Medications Medication Instructions Recorded Confirmed Last Taken Type ARIPiprazole [Aripiprazole] 10 mg PO DAILY 08/11/20 08/11/20 Unknown History Adalimumab [Humira Pen] 45 units SQ WEEKLY 08/11/20 08/11/20 Unknown History Atorvastatin Calcium 20 mg PO DAILY 08/11/20 08/11/20 08/11/20 History Bupropion HCl [Bupropion Xl] 150 mg PO DAILY 08/11/20 08/11/20 08/10/20 History Fluticasone/Vilanterol [Breo 1 puff IH DAILY 08/11/20 08/11/20 08/10/20 History Ellipta 100-25 Mcg INH] Insulin Glargine,Hum.rec.anlog 45 unit SQ HS 08/11/20 08/11/20 Unknown History [Basaglar Kwikpen U-100] Insulin Lispro [Admelog] 7 unit SQ BID 08/11/20 08/11/20 08/10/20 History Liraglutide [Victoza 2-Levar] 1.8 ml SQ BID 08/11/20 08/11/20 08/10/20 History Lisinopril 40 mg PO DAILY 08/11/20 08/11/20 08/10/20 History Metformin HCl [Metformin ER 500 mg PO BID 08/11/20 08/11/20 08/10/20 History Gastric] Metoprolol Tartrate 50 mg PO BID 08/11/20 08/11/20 08/10/20 History Montelukast Sodium 10 mg 10 mg PO QHS 08/11/20 08/11/20 08/10/20 History [Singulair 10 MG] Oxybutynin Chloride Xl 5 mg 5 mg PO BID 08/11/20 08/11/20 Unknown History [Ditropan XL 5 MG] Prednisone 20 mg [Deltasone 20 40 mg PO DAILY 08/11/20 08/11/20 08/10/20 History mg] Current Medications Discontinued Medications Generic Name Dose Route Start Last Admin Trade Name Freq PRN Reason Stop Dose Admin Acetaminophen 650 mg 08/11/20 03:00 08/12/20 22:45 Tylenol 325 Mg PO 09/10/20 02:59 650 mg Q4H PRN PRN Administration PAIN AND/OR FEVER Hydrocodone Bitart/Acetaminophen 1 tab 08/12/20 12:18 08/12/20 17:14 [place] 5/325 Mg PO 08/17/20 12:17 1 tab Q4H PRN PRN Administration PAIN Albuterol Sulfate 4 puff 08/11/20 05:54 Ventolin Common Canister IH 09/10/20 05:53 Q4H PRN PRN SHORTNESS OF BREATH/WHEEZING Albuterol/Ipratropium 3 ml 08/11/20 05:53 08/11/20 07:28 Duoneb 0.5-3 Mg/3 Ml Neb IH 09/10/20 05:52 3 ml Q4HPRN PRN Administration SHORTNESS OF BREATH/WHEEZING Albuterol/Ipratropium Confirm 08/11/20 07:27 Duoneb 0.5-3 Mg/3 Ml Neb Administered 08/11/20 07:28 Dose 3 ml IH .STK-MED ONE Aripiprazole 10 mg 08/11/20 10:00 08/13/20 10:09 Abilify 10 Mg PO 09/10/20 09:59 10 mg DAILY RUSSELL Administration Aztreonam Confirm 08/11/20 02:41 Azactam 1 Gm Administered 08/11/20 02:42 Dose 1 gm .ROUTE .STK-MED ONE Budesonide 0.5 mg 08/11/20 07:00 08/13/20 05:45 Pulmicort 0.5 Mg/2 Ml Respules IH 09/10/20 06:59 0.5 mg BIDRT RUSSELL Administration Budesonide Confirm 08/11/20 07:27 Pulmicort 0.5 Mg/2 Ml Respules Administered 08/11/20 07:28 Dose 0.5 mg IH .STK-MED ONE Bupropion HCl 150 mg 08/11/20 10:00 08/13/20 10:11 Wellbutrin Xl 150 Mg PO 09/10/20 09:59 150 mg DAILY RUSSELL Administration Device 1 08/12/20 21:30 08/12/20 22:45 Trough Drug Levels IJ 08/12/20 21:31 1 1XONLY ONE Administration Enoxaparin Sodium 40 mg 08/11/20 10:00 08/13/20 10:10 Enoxaparin Sodium SQ 09/10/20 09:59 40 mg DAILY RUSSELL Administration Fluoxetine HCl 40 mg 08/11/20 10:00 08/13/20 10:10 Prozac 20 Mg PO 09/10/20 09:59 40 mg DAILY RUSSELL Administration Heparin Sodium (Beef Lung) 500 units 08/13/20 09:02 Heparin Lock Flush 100 Units/Ml 5ml Syringe IV 08/13/20 09:03 .STK-MED ONE Sodium Chloride 1,000 mls @ 50 mls/hr 08/11/20 02:15 08/11/20 02:37 Sodium Chloride 0.9% 1000 Ml IV 09/10/20 02:14 50 mls/hr .Q20H RUSSELL Administration Aztreonam 1 gm in 100 mls @ 200 mls/hr 08/11/20 02:07 08/11/20 02:56 Azactam 1 Gm/100 Ml D5w IV 08/11/20 02:36 200 mls/hr STAT ONE Administration Vancomycin HCl 1 gm in 200 mls @ 125 mls/hr 08/11/20 02:23 08/11/20 05:40 Vancomycin 1 Gram/200 Ml Bag IV 08/11/20 03:58 Not Given STAT ONE Vancomycin HCl Confirm 08/11/20 02:34 Vancomycin 1 Gram/200 Ml Bag Administered 08/11/20 02:35 Dose 1 gm in 200 mls @ ud IV .STK-MED ONE Dextrose Confirm 08/11/20 02:41 D5w 100ml Mini Bag 100 Ml Administered 08/11/20 02:42 Dose 100 mls @ ud IV .STK-MED ONE Sodium Chloride Confirm 08/11/20 02:34 Sodium Chloride 0.9% 1000 Ml Administered 08/11/20 02:35 Dose 1,000 mls @ ud .ROUTE .STK-MED ONE Sodium Chloride 1,000 mls @ 100 mls/hr 08/11/20 03:00 08/13/20 06:10 Sodium Chloride 0.9% 1000 Ml IV 09/10/20 02:59 100 mls/hr .Q10H RUSSELL Administration Levofloxacin/Dextrose 500 mg in 100 mls @ 100 mls/hr 08/11/20 10:00 08/13/20 10:10 Levofloxacin 500mg/100ml D5w IV 09/10/20 09:59 100 mls/hr Q24H10 RUSSELL Administration Vancomycin HCl 1 gm in 200 mls @ 125 mls/hr 08/11/20 03:33 08/11/20 03:34 Vancomycin 1 Gram/200 Ml Bag IV 08/11/20 05:08 125 mls/hr STAT ONE Administration Vancomycin HCl 1.5 gm in 300 mls @ 150 mls/hr 08/11/20 12:00 08/12/20 23:19 Vancomycin 1.5 Gram/300 Ml Bag IV 09/10/20 11:59 150 mls/hr Q18H RUSSELL Administration Vancomycin HCl 1.5 gm in 300 mls @ 150 mls/hr 08/13/20 10:00 08/13/20 11:39 Vancomycin 1.5 Gram/300 Ml Bag IV 09/12/20 09:59 150 mls/hr Q12HT RUSSELL Administration Heparin Sodium (Porcine) 1,000 501 mls @ ud 08/13/20 09:02 u/ Sodium Chloride IV 08/13/20 09:03 .STK-MED ONE Insulin Glargine 45 unit 08/11/20 22:00 08/12/20 22:45 Lantus Insulin SQ 09/10/20 21:59 45 unit HS RUSSELL Administration Insulin Human Lispro 0 unit 08/11/20 03:00 08/12/20 17:12 Humalog SQ 09/10/20 02:59 2 unit UD PRN Administration HYPERGLYCEMIA Insulin Human Lispro 7 unit 08/11/20 10:00 08/13/20 08:42 Humalog SQ 09/10/20 09:59 7 unit BIDWM RUSSELL Administration Lisinopril 40 mg 08/11/20 10:00 08/13/20 10:11 Zestril 20 Mg PO 09/10/20 09:59 40 mg DAILY RUSSELL Administration Metformin HCl 500 mg 08/11/20 10:00 08/13/20 10:10 Glucophage Xr 500 Mg PO 09/10/20 09:59 500 mg BID RUSSELL Administration Metoprolol Tartrate 50 mg 08/11/20 10:00 08/13/20 10:10 Lopressor 50 Mg PO 09/10/20 09:59 50 mg BID RUSSELL Administration Miscellaneous Information 0 each 08/11/20 11:30 Medication Intervention 09/10/20 11:29 .RN TO CHECK WITH PT RUSSELL Montelukast Sodium 10 mg 08/11/20 22:00 08/12/20 22:45 Singulair 10 Mg PO 09/10/20 21:59 10 mg QHS RUSSELL Administration Non-Formulary Medication 1 each 08/11/20 02:07 08/11/20 05:40 Pharmacy Dosing Required: Vancomycin IV 08/11/20 02:08 Not Given STAT ONE Non-Formulary Medication 1 each 08/11/20 03:00 08/11/20 08:13 Pharmacy Dosing Required: Vancomycin IV 08/11/20 03:01 1 each STAT ONE Administration Non-Formulary Medication 45 units 08/17/20 09:00 Adalimumab [Humira Pen] SQ 09/16/20 08:59 WEEKLY RUSSELL Non-Formulary Medication 10 mg 08/11/20 10:00 Aripiprazole [Abilify] PO 09/10/20 09:59 DAILY RUSSELL Non-Formulary Medication 1.8 ml 08/11/20 10:00 08/11/20 09:55 Liraglutide [Victoza 2-Levar] SQ 09/10/20 09:59 Not Given BID RUSSELL Non-Formulary Medication 2 mg 08/11/20 10:00 08/11/20 09:56 Lorazepam [Ativan] PO 09/10/20 09:59 Not Given DAILY RUSSELL Ondansetron HCl 4 mg 08/11/20 12:38 08/11/20 13:47 Zofran 4 Mg/2 Ml Vial IV 09/10/20 12:37 4 mg Q6H PRN PRN Administration NAUSEA/VOMITING Oxybutynin Chloride 5 mg 08/11/20 10:00 08/13/20 10:10 Ditropan Xl 5 Mg PO 09/10/20 09:59 5 mg BID RUSSELL Administration Pantoprazole Sodium 40 mg 08/11/20 10:00 08/13/20 10:10 Protonix 40 Mg Iv IV 09/10/20 09:59 40 mg Q24H10 RUSSELL Administration Prednisone 40 mg 08/11/20 10:00 08/13/20 10:09 Deltasone 20 Mg PO 09/10/20 09:59 40 mg DAILY RUSSELL Administration Fluticasone/Salmeterol 2 puff 08/11/20 09:30 08/13/20 05:48 Advair Hfa 115/21 Common Canister* IH 09/10/20 09:29 2 puff BIDRT RUSSELL Administration Simvastatin 20 mg 08/11/20 22:00 08/12/20 22:45 Zocor 20mg PO 09/10/20 21:59 20 mg HS RUSSELL Administration Sodium Chloride 3 ml 08/11/20 07:00 08/13/20 05:45 Sodium Chloride 3 Ml Ud Nebules IH 09/10/20 06:59 3 ml BIDRT RUSSELL Administration Intake & Output (Last 24 hours) 08/11/20 08/12/20 08/13/20 08/14/20 11:59 11:59 11:59 11:59 Intake Total 580 9288 3901 Output Total 1700 3200 3000 Balance -1120 -532 901 Weight 102.9 kg 102.9 kg Microbiology Results (Last 24 hours) 08/11/20 02:34 Blood Blood Culture Gram Stain - Pending 08/11/20 02:34 Blood Blood Culture - Preliminary NO GROWTH TO DATE 08/11/20 02:28 Blood Blood Culture Gram Stain - Pending 08/11/20 02:28 Blood Blood Culture - Preliminary NO GROWTH TO DATE Laboratory Results (Last 24 hours) 08/13/20 08/13/20 08/12/20 11:42 07:44 21:50 POC Glucometer 76 65 L 174 H Vancomycin Trough 08/12/20 08/12/20 21:30 16:23 POC Glucometer 204 H Vancomycin Trough 6.93 L Orders (Last 24 hours) Category Date Time Status Infection Control Consult ROUTINE Cons 08/13/20 14:09 Active Consistent Carbohydrate Diet 1800 Calorie Diet 08/13/20 Lunch Completed NPO Diet 08/13/20 08:40 Completed Discharge Routine Discharge 08/13/20 12:56 Ordered GUIDE FOR VASCULAR ACCESS [US] Routine Exams 08/13/20 08:50 Completed PICC LINE PLACEMENT Routine Exams 08/13/20 08:39 Completed POCT GLUCOSE Stat Lab 08/12/20 16:23 Completed POCT GLUCOSE Stat Lab 08/12/20 21:50 Completed POCT GLUCOSE Stat Lab 08/13/20 07:44 Completed POCT GLUCOSE Stat Lab 08/13/20 11:42 Completed Vancomycin, Trough Urgent Lab 08/12/20 21:30 Completed Adalimumab [Humira Pen] Med 08/17/20 09:00 Discontinued 45 units SQ WEEKLY Heparin Flush 500 units/5 ml [Heparin Lock Flush 100 Med 08/13/20 09:02 Discontinued Units/ml 5ml Syringe] 500 units IV .STK-MED ONE NaCl 0.9% 500 ml [Sodium Chloride 0.9% 500 ML] 500 ml Med 08/13/20 09:02 Discontinued Heparin 1000 unit/ml 10ml vial [Heparin 1000 units/ml ( 10 Ml vial)] 1,000 u IV UD Therapuetic Drug Level Monitor [Trough Drug Levels] Med 08/12/20 21:30 Discontinued 1 IJ 1XONLY ONE Vancomycin/Water For Inj (Peg) [Vancomycin 1.5 Gram/300 Med 08/13/20 10:00 Discontinued ml Bag] 1.5 gm in 300 ml IV Q12HT Patient Care Notes (Last 24 hours) 08/13/20 11:47 Case Management Note by Lashae Larsen OTPT ANTIBIOTIC ORDERS WITH FACESHEET TAKEN TO OTPT SURGERY. COPY OF ORDER SENT TO PHARMACY. APT TIME PLACED IN PATIENT'S DC INSTRUCTIONS Initialized on 08/13/20 11:47 - END OF NOTE 08/13/20 10:46 Nursing Note by Loretta Garcia Dr.'s nurse called and said pt is to get [place] 6mg/kg for 4 weeks. CBC, CMP,ESR, CRP weekly. Follow up is already made for 08/16/20 at 10am Initialized on 08/13/20 10:46 - END OF NOTE 08/13/20 10:22 Nursing Note by Loretta Garcia Message left with Dr. Carlson's nurse to call this nurse back so we can verify the antibiotics desired for out pt. infusion now that pt has a Picc line placed. Initialized on 08/13/20 10:22 - END OF NOTE 08/13/20 10:00 Nursing Note by Loretta Garcia Pt returned from radiology with PICC line, pt assisted to the restroom and back to chair with stand by assist. Initialized on 08/13/20 10:00 - END OF NOTE - Vitals & Intake/Output Vital Signs: Vital Signs Temperature 96.5 F 08/13/20 12:00 Pulse Rate 65 08/13/20 12:00 Respiratory Rate 20 08/13/20 12:00 Blood Pressure 179/95 08/13/20 12:00 O2 Sat by Pulse Oximetry 94 L 08/13/20 12:00 Intake & Output: Intake & Output 08/11/20 08/12/20 08/13/20 08/14/20 11:59 11:59 11:59 11:59 Intake Total 580 2668 3901 Output Total 1700 3200 3000 Balance -1120 -532 901 Weight 102.9 kg 102.9 kg - Lab Result Diagrams: 08/11/20 02:28 08/11/20 02:28 Lab Results-Last 24 Hrs: Lab Results-Last 24 Hours 08/12/20 08/12/20 08/12/20 Range/Units 16:23 21:30 21:50 POC Glucometer 204 H 174 H (74 to 106) mg/dL Vancomycin Trough 6.93 L (10-20) ug/mL 11/16/20 11/16/20 Range/Units 07:44 11:42 POC Glucometer 65 L 76 (74 to 106) mg/dL Vancomycin Trough (10-20) ug/mL Micro Results-Entire Visit: Microbiology 08/11/20 02:34 Blood Culture - Preliminary Blood NO GROWTH TO DATE 08/11/20 02:28 Blood Culture - Preliminary Blood NO GROWTH TO DATE Accuchecks Date 08/13/20 Date 08/13/20 Date 08/11/20 Time 12:09 - Radiology Exams Ordered Rad Exams-Entire Visit: Radiology Procedures Category Date Time Status GUIDE FOR VASCULAR ACCESS [US] Routine Exams 08/13/20 08:50 Completed PICC LINE PLACEMENT Routine Exams 08/13/20 08:39 Completed - Procedures and Test Procedures and Tests throughout Hospitalization: Therapy Orders & Screens 08/11/20 04:31 OT Screen per Nursing Assess ONCE Comment: Protocol Order Physician Instructions: Greater than 3 points order OT Admission Screening Reason For Exam: Triggered on Admission Diagnosis: cellulitis right knee Open Wound/Cellutlitis/Pressure Ulcers: Yes Acute Fx/ORIF/Change in wt bearing status: No Severe MUSCULOSKELETAL pain: Yes ADL Dysfunction: No Acute CVA w/Hemiparesis/Hemiplegia: No Decreased Functional Mobility/Strength: Yes Sprain/Strain: No Acute Post-op Mobility Dysfunction: No Total Points: 11 08/11/20 05:51 Respiratory Therapy Assessment DAILY Comment: Diagnosis: cellulitis right knee 08/11/20 07:34 Peak Expiratory Flow Rate ONCE Comment: Reason For Exam: Diagnosis: cellulitis right knee Discharge Exam General Appearance: no apparent distress, alert Neurologic Exam: alert, oriented x 3, cooperative, normal mood/affect, nml cerebellar function, sensation nml, No motor deficits Eye Exam: PERRL, EOMI, eyes nml inspection Ears, Nose, Throat Exam: normal ENT inspection, pharynx normal, moist mucous membranes Neck Exam: normal inspection, non-tender, supple, full range of motion Respiratory Exam: normal breath sounds, lungs clear, No respiratory distress Cardiovascular Exam: regular rate/rhythm, normal heart sounds Gastrointestinal/Abdomen Exam: soft, No tenderness, No mass Pelvic Exam: deferred Rectal Exam: deferred Back Exam: normal inspection, normal range of motion, No CVA tenderness, No vertebral tenderness Extremity Exam: normal inspection, normal range of motion Skin Exam: normal color, warm, dry Wound Assessment: Skin/Wound Assessment Wound/Incision Assessment Start: 08/11/20 03:00 Text: Status: Active Freq: Q6H Protocol: Document 08/13/20 08:25 RN (Rec: 08/13/20 08:34 RN [id number]) Wound/Incision Assessment Right Medial Knee Wound Assessment Shift Assessment Wound Type healed but read Wound Stage Non Pressure Wound Drainage Amount None General Appearance Well Approximated,Clean/Dry, Reddened Surrounding Tissue [place] Comment No dressing or open areas. Just red and warm to touch Final Diagnosis/Problem List - Final Discharge Diagnosis/Problem (1) Septic arthritis of knee, right Status: Acute Assessment & Plan: Chief Complaint Diagnosis cellulitis right knee Admission Date Date 08/12/20 Allergies Allergy/AdvReac Type Severity Reaction Status Date / Time codeine [Codeine] Allergy Mild N&V Verified 08/11/20 04:34 Penicillins Allergy Mild Rash Verified 08/11/20 04:34 Vital Signs (Last 24 hours) Temp Pulse Resp BP Pulse Ox 08/13/20 12:00 96.5 F 65 20 179/95 94 L 08/13/20 08:00 97.6 F 64 18 157/78 94 L 08/13/20 05:52 60 16 97 08/13/20 04:00 97.2 F 61 19 160/86 95 08/13/20 00:00 97.6 F 74 16 134/66 97 08/12/20 20:00 97.1 F 79 16 129/60 96 08/12/20 17:29 81 20 94 L Home Medications Medication Instructions Recorded Confirmed Last Taken Type ARIPiprazole [Aripiprazole] 10 mg PO DAILY 08/11/20 08/11/20 Unknown History Adalimumab [Humira Pen] 45 units SQ WEEKLY 08/11/20 08/11/20 Unknown History Atorvastatin Calcium 20 mg PO DAILY 08/11/20 08/11/20 08/11/20 History Bupropion HCl [Bupropion Xl] 150 mg PO DAILY 08/11/20 08/11/20 08/10/20 History Fluticasone/Vilanterol [Breo 1 puff IH DAILY 08/11/20 08/11/20 08/10/20 History Ellipta 100-25 Mcg INH] Insulin Glargine,Hum.rec.anlog 45 unit SQ HS 08/11/20 08/11/20 Unknown History [Basaglar Federicopen U-100] Insulin Lispro [Admelog] 7 unit SQ BID 08/11/20 08/11/20 08/10/20 History Liraglutide [Victoza 2-Levar] 1.8 ml SQ BID 08/11/20 08/11/20 08/10/20 History Lisinopril 40 mg PO DAILY 08/11/20 08/11/20 08/10/20 History Metformin HCl [Metformin ER 500 mg PO BID 08/11/20 08/11/20 08/10/20 History Gastric] Metoprolol Tartrate 50 mg PO BID 08/11/20 08/11/20 08/10/20 History Montelukast Sodium 10 mg 10 mg PO QHS 08/11/20 08/11/20 08/10/20 History [Singulair 10 MG] Oxybutynin Chloride Xl 5 mg 5 mg PO BID 08/11/20 08/11/20 Unknown History [Ditropan XL 5 MG] Prednisone 20 mg [Deltasone 20 40 mg PO DAILY 08/11/20 08/11/20 08/10/20 History mg] Current Medications Discontinued Medications Generic Name Dose Route Start Last Admin Trade Name Freq PRN Reason Stop Dose Admin Acetaminophen 650 mg 08/11/20 03:00 08/12/20 22:45 Tylenol 325 Mg PO 09/10/20 02:59 650 mg Q4H PRN PRN Administration PAIN AND/OR FEVER Hydrocodone Bitart/Acetaminophen 1 tab 08/12/20 12:18 08/12/20 17:14 [place] 5/325 Mg PO 08/17/20 12:17 1 tab Q4H PRN PRN Administration PAIN Albuterol Sulfate 4 puff 08/11/20 05:54 Ventolin Common Canister IH 09/10/20 05:53 Q4H PRN PRN SHORTNESS OF BREATH/WHEEZING Albuterol/Ipratropium 3 ml 08/11/20 05:53 08/11/20 07:28 Duoneb 0.5-3 Mg/3 Ml Neb IH 09/10/20 05:52 3 ml Q4HPRN PRN Administration SHORTNESS OF BREATH/WHEEZING Albuterol/Ipratropium Confirm 08/11/20 07:27 Duoneb 0.5-3 Mg/3 Ml Neb Administered 08/11/20 07:28 Dose 3 ml IH .STK-MED ONE Aripiprazole 10 mg 08/11/20 10:00 08/13/20 10:09 Abilify 10 Mg PO 09/10/20 09:59 10 mg DAILY RUSSELL Administration Aztreonam Confirm 08/11/20 02:41 Azactam 1 Gm Administered 08/11/20 02:42 Dose 1 gm .ROUTE .STK-MED ONE Budesonide 0.5 mg 08/11/20 07:00 08/13/20 05:45 Pulmicort 0.5 Mg/2 Ml Respules IH 09/10/20 06:59 0.5 mg BIDRT RUSSELL Administration Budesonide Confirm 08/11/20 07:27 Pulmicort 0.5 Mg/2 Ml Respules Administered 08/11/20 07:28 Dose 0.5 mg IH .STK-MED ONE Bupropion HCl 150 mg 08/11/20 10:00 08/13/20 10:11 Wellbutrin Xl 150 Mg PO 09/10/20 09:59 150 mg DAILY RUSSELL Administration Device 1 08/12/20 21:30 08/12/20 22:45 Trough Drug Levels IJ 08/12/20 21:31 1 1XONLY ONE Administration Enoxaparin Sodium 40 mg 08/11/20 10:00 08/13/20 10:10 Enoxaparin Sodium SQ 09/10/20 09:59 40 mg DAILY RUSSELL Administration Fluoxetine HCl 40 mg 08/11/20 10:00 08/13/20 10:10 Prozac 20 Mg PO 09/10/20 09:59 40 mg DAILY RUSSELL Administration Heparin Sodium (Beef Lung) 500 units 08/13/20 09:02 Heparin Lock Flush 100 Units/Ml 5ml Syringe IV 08/13/20 09:03 .STK-MED ONE Sodium Chloride 1,000 mls @ 50 mls/hr 08/11/20 02:15 08/11/20 02:37 Sodium Chloride 0.9% 1000 Ml IV 09/10/20 02:14 50 mls/hr .Q20H RUSSELL Administration Aztreonam 1 gm in 100 mls @ 200 mls/hr 08/11/20 02:07 08/11/20 02:56 Azactam 1 Gm/100 Ml D5w IV 08/11/20 02:36 200 mls/hr STAT ONE Administration Vancomycin HCl 1 gm in 200 mls @ 125 mls/hr 08/11/20 02:23 08/11/20 05:40 Vancomycin 1 Gram/200 Ml Bag IV 08/11/20 03:58 Not Given STAT ONE Vancomycin HCl Confirm 08/11/20 02:34 Vancomycin 1 Gram/200 Ml Bag Administered 08/11/20 02:35 Dose 1 gm in 200 mls @ ud IV .STK-MED ONE Dextrose Confirm 08/11/20 02:41 D5w 100ml Mini Bag 100 Ml Administered 08/11/20 02:42 Dose 100 mls @ ud IV .STK-MED ONE Sodium Chloride Confirm 08/11/20 02:34 Sodium Chloride 0.9% 1000 Ml Administered 08/11/20 02:35 Dose 1,000 mls @ ud .ROUTE .STK-MED ONE Sodium Chloride 1,000 mls @ 100 mls/hr 08/11/20 03:00 08/13/20 06:10 Sodium Chloride 0.9% 1000 Ml IV 09/10/20 02:59 100 mls/hr .Q10H RUSSELL Administration Levofloxacin/Dextrose 500 mg in 100 mls @ 100 mls/hr 08/11/20 10:00 08/13/20 10:10 Levofloxacin 500mg/100ml D5w IV 09/10/20 09:59 100 mls/hr Q24H10 RUSSELL Administration Vancomycin HCl 1 gm in 200 mls @ 125 mls/hr 08/11/20 03:33 08/11/20 03:34 Vancomycin 1 Gram/200 Ml Bag IV 08/11/20 05:08 125 mls/hr STAT ONE Administration Vancomycin HCl 1.5 gm in 300 mls @ 150 mls/hr 08/11/20 12:00 08/12/20 23:19 Vancomycin 1.5 Gram/300 Ml Bag IV 09/10/20 11:59 150 mls/hr Q18H RUSSELL Administration Vancomycin HCl 1.5 gm in 300 mls @ 150 mls/hr 08/13/20 10:00 08/13/20 11:39 Vancomycin 1.5 Gram/300 Ml Bag IV 09/12/20 09:59 150 mls/hr Q12HT RUSSELL Administration Heparin Sodium (Porcine) 1,000 501 mls @ ud 08/13/20 09:02 u/ Sodium Chloride IV 08/13/20 09:03 .STK-MED ONE Insulin Glargine 45 unit 08/11/20 22:00 08/12/20 22:45 Lantus Insulin SQ 09/10/20 21:59 45 unit HS RUSSELL Administration Insulin Human Lispro 0 unit 08/11/20 03:00 08/12/20 17:12 Humalog SQ 09/10/20 02:59 2 unit UD PRN Administration HYPERGLYCEMIA Insulin Human Lispro 7 unit 08/11/20 10:00 08/13/20 08:42 Humalog SQ 09/10/20 09:59 7 unit BIDWM RUSSELL Administration Lisinopril 40 mg 08/11/20 10:00 08/13/20 10:11 Zestril 20 Mg PO 09/10/20 09:59 40 mg DAILY RUSSELL Administration Metformin HCl 500 mg 08/11/20 10:00 08/13/20 10:10 Glucophage Xr 500 Mg PO 09/10/20 09:59 500 mg BID RUSSELL Administration Metoprolol Tartrate 50 mg 08/11/20 10:00 08/13/20 10:10 Lopressor 50 Mg PO 09/10/20 09:59 50 mg BID RUSSELL Administration Miscellaneous Information 0 each 08/11/20 11:30 Medication Intervention 09/10/20 11:29 .RN TO CHECK WITH PT RUSSELL Montelukast Sodium 10 mg 08/11/20 22:00 08/12/20 22:45 Singulair 10 Mg PO 09/10/20 21:59 10 mg QHS RUSSELL Administration Non-Formulary Medication 1 each 08/11/20 02:07 08/11/20 05:40 Pharmacy Dosing Required: Vancomycin IV 08/11/20 02:08 Not Given STAT ONE Non-Formulary Medication 1 each 08/11/20 03:00 08/11/20 08:13 Pharmacy Dosing Required: Vancomycin IV 08/11/20 03:01 1 each STAT ONE Administration Non-Formulary Medication 45 units 08/17/20 09:00 Adalimumab [Humira Pen] SQ 09/16/20 08:59 WEEKLY RUSSELL Non-Formulary Medication 10 mg 08/11/20 10:00 Aripiprazole [Abilify] PO 09/10/20 09:59 DAILY RUSSELL Non-Formulary Medication 1.8 ml 08/11/20 10:00 08/11/20 09:55 Liraglutide [Victoza 2-Levar] SQ 09/10/20 09:59 Not Given BID RUSSELL Non-Formulary Medication 2 mg 08/11/20 10:00 08/11/20 09:56 Lorazepam [Ativan] PO 09/10/20 09:59 Not Given DAILY RUSSELL Ondansetron HCl 4 mg 08/11/20 12:38 08/11/20 13:47 Zofran 4 Mg/2 Ml Vial IV 09/10/20 12:37 4 mg Q6H PRN PRN Administration NAUSEA/VOMITING Oxybutynin Chloride 5 mg 08/11/20 10:00 08/13/20 10:10 Ditropan Xl 5 Mg PO 09/10/20 09:59 5 mg BID RUSSELL Administration Pantoprazole Sodium 40 mg 08/11/20 10:00 08/13/20 10:10 Protonix 40 Mg Iv IV 09/10/20 09:59 40 mg Q24H10 RUSSELL Administration Prednisone 40 mg 08/11/20 10:00 08/13/20 10:09 Deltasone 20 Mg PO 09/10/20 09:59 40 mg DAILY RUSSELL Administration Fluticasone/Salmeterol 2 puff 08/11/20 09:30 08/13/20 05:48 Advair Hfa 115/21 Common Canister* IH 09/10/20 09:29 2 puff BIDRT RUSSELL Administration Simvastatin 20 mg 08/11/20 22:00 08/12/20 22:45 Zocor 20mg PO 09/10/20 21:59 20 mg HS RUSSELL Administration Sodium Chloride 3 ml 08/11/20 07:00 08/13/20 05:45 Sodium Chloride 3 Ml Ud Nebules IH 09/10/20 06:59 3 ml BIDRT RUSSELL Administration Intake & Output (Last 24 hours) 08/11/20 08/12/20 08/13/20 08/14/20 11:59 11:59 11:59 11:59 Intake Total 580 2668 3901 Output Total 2866 7632 3000 Balance -1124 -479 901 Weight 102.9 kg 102.9 kg Microbiology Results (Last 24 hours) 08/11/20 02:34 Blood Blood Culture Gram Stain - Pending 08/11/20 02:34 Blood Blood Culture - Preliminary NO GROWTH TO DATE 08/11/20 02:28 Blood Blood Culture Gram Stain - Pending 08/11/20 02:28 Blood Blood Culture - Preliminary NO GROWTH TO DATE Laboratory Results (Last 24 hours) 08/13/20 08/13/20 08/12/20 11:42 07:44 21:50 POC Glucometer 76 65 L 174 H Vancomycin Trough 08/12/20 08/12/20 21:30 16:23 POC Glucometer 204 H Vancomycin Trough 6.93 L Orders (Last 24 hours) Category Date Time Status Infection Control Consult ROUTINE Cons 08/13/20 14:09 Active Consistent Carbohydrate Diet 1800 Calorie Diet 08/13/20 Lunch Completed NPO Diet 08/13/20 08:40 Completed Discharge Routine Discharge 08/13/20 12:56 Ordered GUIDE FOR VASCULAR ACCESS [US] Routine Exams 08/13/20 08:50 Completed PICC LINE PLACEMENT Routine Exams 08/13/20 08:39 Completed POCT GLUCOSE Stat Lab 08/12/20 16:23 Completed POCT GLUCOSE Stat Lab 08/12/20 21:50 Completed POCT GLUCOSE Stat Lab 08/13/20 07:44 Completed POCT GLUCOSE Stat Lab 08/13/20 11:42 Completed Vancomycin, Trough Urgent Lab 08/12/20 21:30 Completed Adalimumab [Humira Pen] Med 08/17/20 09:00 Discontinued 45 units SQ WEEKLY Heparin Flush 500 units/5 ml [Heparin Lock Flush 100 Med 08/13/20 09:02 Discontinued Units/ml 5ml Syringe] 500 units IV .STK-MED ONE NaCl 0.9% 500 ml [Sodium Chloride 0.9% 500 ML] 500 ml Med 08/13/20 09:02 Discontinued Heparin 1000 unit/ml 10ml vial [Heparin 1000 units/ml ( 10 Ml vial)] 1,000 u IV UD Therapuetic Drug Level Monitor [Trough Drug Levels] Med 08/12/20 21:30 Discontinued 1 IJ 1XONLY ONE Vancomycin/Water For Inj (Peg) [Vancomycin 1.5 Gram/300 Med 08/13/20 10:00 Discontinued ml Bag] 1.5 gm in 300 ml IV Q12HT Patient Care Notes (Last 24 hours) 08/13/20 11:47 Case Management Note by Lashae Larsen OTPT ANTIBIOTIC ORDERS WITH FACESHEET TAKEN TO OTPT SURGERY. COPY OF ORDER SENT TO PHARMACY. APT TIME PLACED IN PATIENT'S DC INSTRUCTIONS Initialized on 08/13/20 11:47 - END OF NOTE 08/13/20 10:46 Nursing Note by Loretta Garcia Dr.'s nurse called and said pt is to get Cubison 6mg/kg for 4 weeks. CBC, CMP,ESR, CRP weekly. Follow up is already made for 08/16/20 at 10am Initialized on 08/13/20 10:46 - END OF NOTE 08/13/20 10:22 Nursing Note by Loretta Garcia Message left with Dr. Carlson's nurse to call this nurse back so we can verify the antibiotics desired for out pt. infusion now that pt has a Picc line placed. Initialized on 08/13/20 10:22 - END OF NOTE 08/13/20 10:00 Nursing Note by Loretta Garcia Pt returned from radiology with PICC line, pt assisted to the restroom and back to chair with stand by assist. Initialized on 08/13/20 10:00 - END OF NOTE Code(s): M00.9 - PYOGENIC ARTHRITIS, UNSPECIFIED (2) Cellulitis of knee, right Status: Acute Code(s): L03.115 - CELLULITIS OF RIGHT LOWER LIMB - Discharge Discharge Date: 08/13/20 Disposition: Home, Self-Care Condition: Stable Prescriptions: Continue Fluoxetine HCl [Prozac] 40 mg PO DAILY Aripiprazole [Abilify] 10 mg PO DAILY Albuterol/Ipratropium 3ml Neb* [DUONEB 0.5-3 MG/3 ml Neb] 3 ml IH Q2H/PRN PRN PRN Reason: wheezing Budesonide 0.5 mg/2 ml [Pulmicort 0.5 mg/2 ml Respules] 0.5 mg IH BID Albuterol Common Canister [Ventolin Common Canister] 2 puff IH Q4HPRN PRN PRN Reason: wheezing Insulin Lispro [Admelog] 7 unit SQ BID Lisinopril 40 mg PO DAILY Bupropion HCl [Bupropion Xl] 150 mg PO DAILY Fluticasone/Vilanterol [Breo Ellipta 100-25 Mcg INH] 1 puff IH DAILY Atorvastatin Calcium 20 mg PO DAILY Adalimumab [Humira Pen] 45 units SQ WEEKLY Prednisone 20 mg [Deltasone 20 mg] 40 mg PO DAILY Montelukast Sodium 10 mg [Singulair 10 MG] 10 mg PO QHS Metoprolol Tartrate 50 mg PO BID Metformin HCl [Metformin ER Gastric] 500 mg PO BID Liraglutide [Victoza 2-Levar] 1.8 ml SQ BID ARIPiprazole [Aripiprazole] 10 mg PO DAILY Insulin Glargine,Hum.rec.anlog [Basaglar Kwikpen U-100] 45 unit SQ HS Oxybutynin Chloride Xl 5 mg [Ditropan XL 5 MG] 5 mg PO BID Instructions: Peripherally-Inserted Central Catheter, How to Care for a Central Line Catheter, Cellulitis (Skin Infection), Adult (DC) Additional Instructions: out pt. infusion at [facility] for Cubison 6mg/kg IV daily for 4 weeks. CBC, CMP, ESR and CRP weekly and sent to Dr. Barton's office YOUR APPOINTMENT FOR YOUR INFUSION IS 08/14/2020 (TOMORROW) AT 2PM- GO TO REGISTRATION WHEN YOU ARRIVE Follow up with: JERRI CARLSON [NON-STAFF PHY W/O PRIVILEGES] - 08/16/20 10:00 am KENDRA ALMODOVAR MD [Primary Care Provider] - 08/21/20 11:00 am (at [place])
[2020-08-17] MEDS ORDERED: ADALIMUMAB SQ SCH (09:00)
== END 2020-08-13 14:00 | disposition home or self-care (01) ==
LOC: ED 01:51 → INTOOBSV 02:34 → MED SURG 02:34
PROVIDERS: ADMIT General Practice; ATTEND General Practice
DX: M00.9 Pyogenic arthritis, unspecified (principal); L03.115 Cellulitis of right lower limb; Z79.899 Other long term (current) drug therapy; E11.9 Type 2 diabetes mellitus without complications; J44.9 Chronic obstructive pulmonary disease, unspecified; I10 Essential (primary) hypertension; G47.30 Sleep apnea, unspecified; J45.909 Unspecified asthma, uncomplicated; Z23 Encounter for immunization
CPT/HCPCS: 36415; 36573; 76937; 77001; 80053; 80202; 82947; 83036; 83605; 85025; 87040; 94150; 94640; 94760; 99291; G0008; G0378; 36000; 90686; 99284; C1769; J1642; J1644; J1650; J1817; J1956; J2405; A9270-GY; J3370

== ENCOUNTER 2020-08-14 04:09 | Emergency (ER) | payer OTHER ==
[2020-08-14] MEDS ORDERED: Catapres 0.1 MG PO ONE (04:24)
[2020-08-14] MEDS ORDERED: Catapres 0.1 MG ONE (04:25)
--- NOTE | 2020-08-14 04:31 | ERPHSYRPT ---
- History of Present Illness Source: patient Exam Limitations: no limitations Patient Subjective Stated Complaint: pt states "My blood pressure keeps going up." "I am worried about it because of the PICC." Triage Nursing Assessment: pt ambulated into the er; pt is axo x 3; anxious and nervous; c/o htn; denies pain; PICC present to RUE; pulses are strong in all extremities; clear heart tones; clear lung sounds in all lobes; active bowel sounds present; hypertension Physician History: 54 yo anxious, mentally challenged wf w elevated BP. Pt denies chest pain/focal weakness/MONTE/dyspnea. Timing/Duration: today Severity: mild Modifying Factors: Improves With: nothing Associated Symptoms: No nausea, No vomiting, No abdominal pain, No shortness of breath, No heartburn, No diaphoresis, No cough, No chills, No chest pain, No fever, No headaches, No loss of appetite, No malaise, No rash, No syncope, No seizure, No weakness Allergies/Adverse Reactions: codeine [Codeine] Allergy (Mild, Verified 08/14/20 04:13) N&V Penicillins Allergy (Mild, Verified 08/14/20 04:13) Rash Home Medications: Albuterol Common Canister [Ventolin Common Canister] 2 puff IH Q4HPRN PRN 02/15/12 [History] Albuterol/Ipratropium 3ml Neb* [DUONEB 0.5-3 MG/3 ml Neb] 3 ml IH Q2H/PRN PRN 02/15/12 [History] Aripiprazole [Abilify] 10 mg PO DAILY 02/15/12 [History] Budesonide 0.5 mg/2 ml [Pulmicort 0.5 mg/2 ml Respules] 0.5 mg IH BID 02/15/12 [History] Fluoxetine HCl [Prozac] 40 mg PO DAILY 02/15/12 [History] ARIPiprazole [Aripiprazole] 10 mg PO DAILY 08/11/20 [History] Adalimumab [Humira Pen] 45 units SQ WEEKLY 08/11/20 [History] Atorvastatin Calcium 20 mg PO DAILY 08/11/20 [History] Bupropion HCl [Bupropion Xl] 150 mg PO DAILY 08/11/20 [History] Fluticasone/Vilanterol [Breo Ellipta 100-25 Mcg INH] 1 puff IH DAILY 08/11/20 [History] Insulin Glargine,Hum.rec.anlog [Basaglar Kwikpen U-100] 45 unit SQ HS 08/11/20 [History] Insulin Lispro [Admelog] 7 unit SQ BID 08/11/20 [History] Liraglutide [Victoza 2-Levar] 1.8 ml SQ BID 08/11/20 [History] Lisinopril 40 mg PO DAILY 08/11/20 [History] Metformin HCl [Metformin ER Gastric] 500 mg PO BID 08/11/20 [History] Metoprolol Tartrate 50 mg PO BID 08/11/20 [History] Montelukast Sodium 10 mg [Singulair 10 MG] 10 mg PO QHS 08/11/20 [History] Oxybutynin Chloride Xl 5 mg [Ditropan XL 5 MG] 5 mg PO BID 08/11/20 [History] Prednisone 20 mg [Deltasone 20 mg] 40 mg PO DAILY 08/11/20 [History] Hx Tetanus, Diphtheria Vaccination/Date Given: No (unknown) Hx Influenza Vaccination/Date Given: Yes Hx Pneumococcal Vaccination/Date Given: No (unknown when) Travel Risk - International Travel Have you traveled outside of the country in past 3 weeks: No - Coronavirus Screening Are you exhibiting any of the following symptoms?: No Close contact with a COVID-19 positive Pt in past 14-21 Days: No - Review of Systems Constitutional: No Symptoms Eyes: No Symptoms Ears, Nose, & Throat: No Symptoms Respiratory: No Symptoms Cardiac: No Symptoms Abdominal/Gastrointestinal: No Symptoms Genitourinary Symptoms: No Symptoms Musculoskeletal: No Symptoms Skin: No Symptoms Neurological: No Symptoms Psychological: No Symptoms Endocrine: No Symptoms Hematologic/Lymphatic: No Symptoms Immunological/Allergic: No Symptoms - Past Medical History Pertinent Past Medical History: Yes Neurological History: Other ENT History: No Pertinent History Cardiac History: No Pertinent History, Hypertension Respiratory History: Asthma, COPD, Sleep Apnea Endocrine Medical History: Diabetes Type II Musculoskeletal History: No Pertinent History GI Medical History: Crohns Disease History: No Pertinent History Psycho-Social History: Anxiety Female Reproductive Disorders: No Pertinent History Other Medical History: Down syndrome reported - Past Surgical History Past Surgical History: Yes Neuro Surgical History: No Pertinent History Cardiac: No Pertinent History Respiratory: No Pertinent History Gastrointestinal: No Pertinent History Genitourinary: No Pertinent History Musculoskeletal: Joint Replacement Female Surgical History: Hysterectomy, Section Other Surgical History: right knee replacement. left knee replacement. PICC in rt upper arm - Social History Smoking Status: Former smoker How long have you smoked: 15 years Exposure to second hand smoke: No Drug Use: none Patient Lives Alone: No Significant Family History: no pertinent family hx - Female History Hx Now: No - Nursing Vital Signs Nursing Vital Signs: Initial Vital Signs Temperature 97.5 F 08/14/20 04:14 Pulse Rate 95 H 08/14/20 04:14 Respiratory Rate 24 08/14/20 04:14 Blood Pressure 181/102 08/14/20 04:14 O2 Sat by Pulse Oximetry 98 08/14/20 04:14 Pain Scale Pain Intensity 0 - Physical Exam General Appearance: no apparent distress, anxiety Eye Exam: PERRL/EOMI, eyes nml inspection Ears, Nose, Throat Exam: normal ENT inspection, TMs normal, pharynx normal, moist mucous membranes Neck Exam: normal inspection, non-tender, supple, full range of motion, No meningismus, No mass, No Brudzinski, No Kernig's, No carotid bruit, No JVD Respiratory Exam: normal breath sounds, lungs clear, airway intact, No respiratory distress Cardiovascular Exam: regular rate/rhythm, normal heart sounds, normal peripheral pulses, No murmur Gastrointestinal/Abdomen Exam: soft, normal bowel sounds, No tenderness Back Exam: normal inspection, normal range of motion Extremity Exam: normal inspection, normal range of motion Neurologic Exam: alert, oriented x 3, 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, 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, normal mood/affect, nml cerebellar function, sensation nml, No motor deficits, No sensory deficit Skin Exam: normal color, warm, dry SpO2 Interpretation: normal SpO2: 98 O2 Delivery: Room Air - Course Nursing assessment & vital signs reviewed: Yes Ordered Tests: Medication Summary Discontinued Medications Generic Name Dose Route Start Last Admin Trade Name Freq PRN Reason Stop Dose Admin Clonidine 0.2 mg 08/14/20 04:24 08/14/20 04:26 Catapres 0.1 Mg PO 08/14/20 04:25 0.2 mg STAT ONE Administration Clonidine Confirm 08/14/20 04:25 Catapres 0.1 Mg Administered 08/14/20 04:26 Dose 0.2 mg .ROUTE .STK-MED ONE - Progress Progress: improved Progress Note: 08/14/20 04:44 BP decreasing w 0.2mg po clonidine. Pt advised to f/u w PCP in AM. - Departure Departure Disposition: Home Clinical Impression: Hypertension Condition: Stable Critical Care Time: No Referrals: KENDRA ALMODOVAR MD [Primary Care Provider] - Instructions: Malignant Hypertension (DC) Additional Instructions: Follow up with your family MD in AM Return to ER for headache/focal weakness/Chest pain/shortness of breath
[2020-08-14 04:44] VITALS: BP 163/85; PULSE 78
[2020-08-14 04:45] VITALS: O2SAT 98
== END 2020-08-14 04:48 | disposition home or self-care (01) ==
LOC: ED 04:09
DX: I10 Essential (primary) hypertension (principal); Z79.899 Other long term (current) drug therapy; J44.9 Chronic obstructive pulmonary disease, unspecified; G47.31 Primary central sleep apnea; F51.9 Sleep disorder not due to a substance or known physiological condition, unspecified; K50.90 Crohn's disease, unspecified, without complications; F41.0 Panic disorder [episodic paroxysmal anxiety]; Q90.9 Down syndrome, unspecified
CPT/HCPCS: 99283; A9270-GY

== ENCOUNTER 2020-09-12 14:16 | Emergency (ER) | payer OTHER ==
--- NOTE | 2020-09-12 14:21 | ERPHSYRPT ---
- History of Present Illness Time Seen by Provider: 09/12/20 14:21 Historian: patient Exam Limitations: no limitations Physician History: This is a 54-year-old mentally challenged white female patient of Dr. Almodovar who presents with bilateral infraumbilical abdominal pain of 2 days duration. Patient has been receiving intravenous antibiotics treatment for an infection in her knee for several days. Patient states that she feels nauseated but has not vomited. She has had 2 days of intermittent diarrhea as well. Patient has a history of obesity, asthma/COPD, diabetes, hypertension, and anxiety. Patient has had a hysterectomy in the past as well as a . Timing/Duration: day(s) (2) Activities at Onset: none Quality: cramping Abdominal Pain Onset Location: RLQ, LLQ, suprapubic, other (Infraumbilical) Pain Radiation: no radiation Severity of Pain-Max: moderate Severity of Pain-Current: moderate Modifying Factors: Improves With: nothing Associated Symptoms: diarrhea, nausea, No vomiting Previous symptoms: no prior history Allergies/Adverse Reactions: codeine [Codeine] Allergy (Mild, Verified 09/12/20 14:37) N&V Penicillins Allergy (Mild, Verified 09/12/20 14:37) Rash Home Medications: Albuterol Common Canister [Ventolin Common Canister] 2 puff IH Q4HPRN PRN 02/15/12 [History] Albuterol/Ipratropium 3ml Neb* [DUONEB 0.5-3 MG/3 ml Neb] 3 ml IH Q2H/PRN PRN 02/15/12 [History] Aripiprazole [Abilify] 10 mg PO DAILY 02/15/12 [History] Budesonide 0.5 mg/2 ml [Pulmicort 0.5 mg/2 ml Respules] 0.5 mg IH BID 02/15/12 [History] Fluoxetine HCl [Prozac] 40 mg PO DAILY 02/15/12 [History] ARIPiprazole [Aripiprazole] 10 mg PO DAILY 08/11/20 [History] Adalimumab [Humira Pen] 45 units SQ WEEKLY 08/11/20 [History] Atorvastatin Calcium 20 mg PO DAILY 08/11/20 [History] Bupropion HCl [Bupropion Xl] 150 mg PO DAILY 08/11/20 [History] Fluticasone/Vilanterol [Breo Ellipta 100-25 Mcg INH] 1 puff IH DAILY 08/11/20 [History] Insulin Glargine,Hum.rec.anlog [Basaglar Kwikpen U-100] 45 unit SQ HS 08/11/20 [History] Insulin Lispro [Admelog] 7 unit SQ BID 08/11/20 [History] Liraglutide [Victoza 2-Levar] 1.8 ml SQ BID 08/11/20 [History] Lisinopril 40 mg PO DAILY 08/11/20 [History] Metformin HCl [Metformin ER Gastric] 500 mg PO BID 08/11/20 [History] Metoprolol Tartrate 50 mg PO BID 08/11/20 [History] Montelukast Sodium 10 mg [Singulair 10 MG] 10 mg PO QHS 08/11/20 [History] Oxybutynin Chloride Xl 5 mg [Ditropan XL 5 MG] 5 mg PO BID 08/11/20 [History] Prednisone 20 mg [Deltasone 20 mg] 40 mg PO DAILY 08/11/20 [History] Hx Tetanus, Diphtheria Vaccination/Date Given: No (unknown) Hx Influenza Vaccination/Date Given: Yes Hx Pneumococcal Vaccination/Date Given: No (unknown when) Travel Risk - International Travel Have you traveled outside of the country in past 3 weeks: No - Coronavirus Screening Are you exhibiting any of the following symptoms?: No Close contact with a COVID-19 positive Pt in past 14-21 Days: No - Review of Systems Constitutional: No Symptoms Eyes: No Symptoms Ears, Nose, & Throat: No Symptoms Respiratory: No Symptoms Cardiac: No Symptoms Abdominal/Gastrointestinal: Abdominal Pain, Nausea, Diarrhea, No Vomiting Genitourinary Symptoms: No Symptoms Musculoskeletal: No Symptoms Skin: No Symptoms Neurological: No Symptoms Psychological: No Symptoms Endocrine: No Symptoms Hematologic/Lymphatic: No Symptoms Immunological/Allergic: No Symptoms All Other Systems: Reviewed and Negative - Past Medical History Pertinent Past Medical History: Yes Neurological History: Other ENT History: No Pertinent History Cardiac History: No Pertinent History, Hypertension Respiratory History: Asthma, COPD, Sleep Apnea Endocrine Medical History: Diabetes Type II Musculoskeletal History: No Pertinent History GI Medical History: Crohns Disease History: No Pertinent History Psycho-Social History: Anxiety Female Reproductive Disorders: No Pertinent History Other Medical History: Down syndrome reported - Past Surgical History Past Surgical History: Yes Neuro Surgical History: No Pertinent History Cardiac: No Pertinent History Respiratory: No Pertinent History Gastrointestinal: No Pertinent History Genitourinary: No Pertinent History Musculoskeletal: Joint Replacement Female Surgical History: Hysterectomy, Section Other Surgical History: right knee replacement. left knee replacement. PICC in rt upper arm - Social History Smoking Status: Former smoker How long have you smoked: 15 years Exposure to second hand smoke: No Drug Use: none Patient Lives Alone: No Significant Family History: no pertinent family hx - Nursing Vital Signs Nursing Vital Signs: Initial Vital Signs Temperature 98.2 F 09/12/20 14:38 Pulse Rate 121 H 09/12/20 14:38 Respiratory Rate 18 09/12/20 14:38 Blood Pressure 131/62 09/12/20 14:38 O2 Sat by Pulse Oximetry 97 09/12/20 14:38 Pain Scale Pain Intensity 4 - Physical Exam General Appearance: mild distress, alert, anxiety, obese Eye Exam: PERRL/EOMI, eyes nml inspection Ears, Nose, Throat Exam: normal ENT inspection, moist mucous membranes Neck Exam: normal inspection, non-tender, supple, full range of motion Respiratory Exam: normal breath sounds, lungs clear, airway intact, No chest tenderness, No respiratory distress Cardiovascular Exam: tachycardia Gastrointestinal/Abdomen Exam: soft, normal bowel sounds, tenderness, guarding (Periumbilical and bilateral lower quadrants), No rebound Pelvic Exam: not done Back Exam: normal inspection, normal range of motion, No CVA tenderness, No vertebral tenderness Extremity Exam: normal inspection, normal range of motion, pelvis stable Neurologic Exam: alert, oriented x 3, cooperative, 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 as tested, nml cerebellar function, nml station & gait, sensation nml Skin Exam: normal color, warm, dry Lymphatic Exam: No adenopathy SpO2 Interpretation: normal O2 Delivery: Room Air - Course Nursing assessment & vital signs reviewed: Yes Ordered Tests: Active Orders 24 hr Category Date Time Status IV Insertion STAT Care 09/12/20 14:46 Active ABDOMEN AND PELVIS W/0 CONTRAS [CT] Stat Exams 09/12/20 14:47 Completed AMYLASE Stat Lab 09/12/20 14:52 Completed CBC W DIFF Stat Lab 09/12/20 14:52 Completed CMP Stat Lab 09/12/20 14:52 Completed CULTURE,URINE Stat Lab 09/12/20 14:52 Received LIPASE Stat Lab 09/12/20 14:52 Completed Lactic Acid Stat Lab 09/12/20 14:46 Completed Medication Summary Discontinued Medications Generic Name Dose Route Start Last Admin Trade Name Star PRN Reason Stop Dose Admin Sodium Chloride 1,000 mls @ 999 mls/hr 09/12/20 14:46 09/12/20 15:59 Sodium Chloride 0.9% 1000 Ml IV 09/12/20 15:46 Infused .Q1H1M STA Infusion Sodium Chloride Confirm 09/12/20 14:54 Sodium Chloride 0.9% 1000 Ml Administered 09/12/20 14:55 Dose 1,000 mls @ ud .ROUTE .STK-MED ONE Morphine Sulfate 4 mg 09/12/20 14:46 09/12/20 14:55 Morphine Sulfate 4 Mg Inj IV 09/12/20 14:47 4 mg STAT ONE Administration Morphine Sulfate Confirm 09/12/20 14:54 Morphine Sulfate 4 Mg Inj Administered 09/12/20 14:55 Dose 4 mg .ROUTE .STK-MED ONE Ondansetron HCl 4 mg 09/12/20 14:46 09/12/20 14:55 Zofran 4 Mg/2 Ml Vial IV 09/12/20 14:47 4 mg STAT ONE Administration Ondansetron HCl Confirm 09/12/20 14:53 Zofran 4 Mg/2 Ml Vial Administered 09/12/20 14:54 Dose 4 mg .ROUTE .STK-MED ONE Lab/Rad Data: Laboratory Result Diagrams 09/12/20 14:52 09/12/20 14:52 Laboratory Results 09/12/20 09/12/20 09/12/20 Range/Units 14:52 14:52 14:52 WBC 10.9 H (4.0-10.5) K/mm3 RBC 3.98 L (4.1-5.4) M/mm3 Hgb 11.0 L (12.0-16.0) gm/dl Hct 34.3 L (35-47) % MCV 86.2 (78-100) fl MCH 27.6 (26-32) pg MCHC 32.1 (32-36) g/dl RDW 15.8 H (11.5-14.0) % Plt Count 437 (150-450) K/mm3 MPV 8.5 (7.5-11.0) fl Gran % 52.1 (36.0-66.0) % Eos # (Auto) 0.19 (0-0.5) Absolute Lymphs (auto) 3.99 (1.0-4.6) Absolute Monos (auto) 1.04 (0.0-1.3) Lymphocytes % 36.5 (24.0-44.0) % Monocytes % 9.5 (0.0-12.0) % Eosinophils % 1.7 (0.00-5.0) % Basophils % 0.2 (0.0-0.4) % Absolute Granulocytes 5.70 (1.4-6.9) Basophils # 0.02 (0-0.4) Sodium 130 L (137-145) mmol/L Potassium 3.3 L (3.5-5.1) mmol/L Chloride 88 L (98-107) mmol/L Carbon Dioxide 33 H (22-30) mmol/L Anion Gap 12.0 (5-15) MEQ/L BUN 17 (7-17) mg/dL Creatinine 1.23 H (0.52-1.04) mg/dL Estimated GFR 48.5 ML/MIN Glucose 80 (74-106) mg/dL Lactic Acid (0.4-2.0) Calcium 9.1 (8.4-10.2) mg/dL Total Bilirubin 0.60 (0.2-1.3) mg/dL AST 19 (14-36) U/L ALT 18 (0-35) U/L Alkaline Phosphatase 71 (38-126) U/L Serum Total Protein 7.8 (6.3-8.2) g/dL Albumin 3.7 (3.5-5.0) g/dL Amylase 37 (30-110) U/L Lipase 105 (23-300) U/L Urine Color Cancelled Urine Appearance Cancelled Urine pH Cancelled Ur Specific [place] Cancelled Urine Protein Cancelled POC Urine Protein Conf TRACE (Negative) Urine Ketones Cancelled Urine Blood Cancelled Urine Nitrite Cancelled Urine Bilirubin Cancelled Urine Urobilinogen Cancelled Ur Leukocyte Esterase Cancelled Urine Leukocytes MODERATE (NEGATIVE) Urine WBC (Auto) 6-10 (0-5) /HPF Urine RBC (Auto) 0-2 (0-2) /HPF U Epithel Cells (Auto) FEW (FEW) /HPF Urine Bacteria (Auto) FEW (NEGATIVE) /HPF Urine RBC TRACE-INTACT (0-5) Imer/ul U Non-Squamous Epi Cells Cancelled Ur Culture Indicated? YES Urine Culture Reflexed Cancelled Urine Glucose NEGATIVE (NEGATIVE) mg/dL 09/12/20 Range/Units 14:46 WBC (4.0-10.5) K/mm3 RBC (4.1-5.4) M/mm3 Hgb (12.0-16.0) gm/dl Hct (35-47) % MCV (78-100) fl MCH (26-32) pg MCHC (32-36) g/dl RDW (11.5-14.0) % Plt Count (150-450) K/mm3 MPV (7.5-11.0) fl Gran % (36.0-66.0) % Eos # (Auto) (0-0.5) Absolute Lymphs (auto) (1.0-4.6) Absolute Monos (auto) (0.0-1.3) Lymphocytes % (24.0-44.0) % Monocytes % (0.0-12.0) % Eosinophils % (0.00-5.0) % Basophils % (0.0-0.4) % Absolute Granulocytes (1.4-6.9) Basophils # (0-0.4) Sodium (137-145) mmol/L Potassium (3.5-5.1) mmol/L Chloride (98-107) mmol/L Carbon Dioxide (22-30) mmol/L Anion Gap (5-15) MEQ/L BUN (7-17) mg/dL Creatinine (0.52-1.04) mg/dL Estimated GFR ML/MIN Glucose (74-106) mg/dL Lactic Acid 1.9 (0.4-2.0) Calcium (8.4-10.2) mg/dL Total Bilirubin (0.2-1.3) mg/dL AST (14-36) U/L ALT (0-35) U/L Alkaline Phosphatase (38-126) U/L Serum Total Protein (6.3-8.2) g/dL Albumin (3.5-5.0) g/dL Amylase (30-110) U/L Lipase (23-300) U/L Urine Color Urine Appearance Urine pH Ur Specific [place] Urine Protein POC Urine Protein Conf (Negative) Urine Ketones Urine Blood Urine Nitrite Urine Bilirubin Urine Urobilinogen Ur Leukocyte Esterase Urine Leukocytes (NEGATIVE) Urine WBC (Auto) (0-5) /HPF Urine RBC (Auto) (0-2) /HPF U Epithel Cells (Auto) (FEW) /HPF Urine Bacteria (Auto) (NEGATIVE) /HPF Urine RBC (0-5) Imer/ul U Non-Squamous Epi Cells Ur Culture Indicated? Urine Culture Reflexed Urine Glucose (NEGATIVE) mg/dL - Progress Progress: improved, pain not gone completely, re-examined Progress Note: 09/12/20 17:50 CAT scan of the abdomen and pelvis shows sigmoid colitis with internal luminal narrowing. Malignancy cannot be ruled out. Counseled pt/family regarding: lab results, diagnosis, rad results - Departure Departure Disposition: Home Clinical Impression: Colitis Condition: Stable Critical Care Time: No Referrals: KENDRA ALMODOVAR MD [Primary Care Provider] - Additional Instructions: Drink plenty of fluids. Take the new antibiotic prescription as prescribed. Follow-up with your primary care physician to make arrangements for an outpatient colonoscopy to evaluate your sigmoid colon. Prescriptions: Metronidazole 500 mg [Flagyl 500 MG] 500 mg PO TID #21 tablet
[2020-09-12] MEDS ORDERED: Zofran 4 MG/2 ML VIAL IV ONE (14:46)
[2020-09-12] MEDS ORDERED: MORPHINE SULFATE 4 MG INJ IV ONE (14:46)
[2020-09-12] MEDS ORDERED: Sodium Chloride 0.9% 1000 ML 1,000 ML IV STA (14:46)
[2020-09-12] MEDS ORDERED: Zofran 4 MG/2 ML VIAL ONE (14:53)
[2020-09-12] MEDS ORDERED: MORPHINE SULFATE 4 MG INJ ONE (14:54)
[2020-09-12] MEDS ORDERED: Sodium Chloride 0.9% 1000 ML 1,000 ML ONE (14:54)
[2020-09-12 15:34] LABS: Appearance CLEAR (CLEAR); Bilirubin NEGATIVE (NEGATIVE); Glucose NEGATIVE (NEGATIVE); Ketones NEGATIVE (NEGATIVE); Nitrite NEGATIVE (NEGATIVE); Protein,Urine Dip TRACE (Negative); RBC TRACE-INTACT Ery/ul (0-5); Urobilinogen 2 mg/dL (0-1)
[2020-09-12 15:36] LABS: BASOPHIL % 0.2 % (0.0-0.4); Basophil (Absolute #) 0.02 (0-0.4); Eosinophil % 1.7 % (0.00-5.0); Eosinophil (Absolute #) 0.19 (0-0.5); Hematocrit 34.3 % (35-47); Lymphocyte (Absolute #) 3.99 (1.0-4.6); Lymphocytes % 36.5 % (24.0-44.0); Mean Cell Volume 86.2 fl (78-100); Mean Corpuscular Hemoglobin 27.6 pg (26-32); Mean Corpuscular Hgb Concent. 32.1 g/dl (32-36); Mean Platelet Volume 8.5 fl (7.5-11.0); Monocyte (Absolute #) 1.04 (0.0-1.3); Monocytes % 9.5 % (0.0-12.0); Neutrophil % 52.1 % (36.0-66.0); Platelet Count 437 K/mm3 (150-450); Red Blood Count 3.98 M/mm3 (4.1-5.4); Red Cell Distribution Width 15.8 % (11.5-14.0); White Blood Count 10.9 K/mm3 (4.0-10.5)
[2020-09-12 15:37] LABS: ALBUMIN 3.7 g/dL (3.5-5.0); BILIRUBIN,TOTAL 0.6 mg/dL (0.2-1.3); Calcium 9.1 mg/dL (8.4-10.2); Creatinine 1 1.23 mg/dL (0.52-1.04); EST GLOMERULAR FILTRATION RATE 48.5 ML/MIN; Potassium 3.3 mmol/L (3.5-5.1); Total Protein 7.8 g/dL (6.3-8.2)
[2020-09-12 15:39] LABS: Bacteria FEW /HPF (NEGATIVE); Epithelial Cells FEW /HPF (FEW); RBC 0-2 /HPF (0-2)
--- NOTE | 2020-09-12 16:29 | XRAY ---
Indication: Abdomen pain and diarrhea. Multiple contiguous axial images obtained through the abdomen and pelvis without contrast as ordered. Comparison: None Lung bases and this is minimal dependent atelectasis. No infiltrate or effusion. Heart is not enlarged. Noncontrasted stomach and bowel loops appear nonobstructed. Appendectomy and cholecystectomy reported. Mild scattered fecal debris predominantly in the ascending and transverse colon. Sigmoid colon demonstrates moderate circumferential wall thickening with mild pericolonic stranding, possible colitis. Sigmoid colon also demonstrates intraluminal narrowing with mild distention of the more proximal colon for which malignancy not completely excluded. No free fluid/air. Spleen is enlarged measuring 13.6 cm with calcific granulomas. 1.5 cm left ovary cyst. Remaining liver, pancreas, spleen, adrenal glands, kidneys, ureters, bladder, and and uterus appear unremarkable for noncontrast exam. Mild scattered aortoiliac calcifications without AAA. Small centimeter/subcentimeter periaortic nodes presumed reactive. No pathologic retroperitoneal lymphadenopathy. Osseous structures intact with minimal degenerative changes throughout the spine. Impression: 1. Diffuse sigmoid circumferential wall thickening with stranding possibly colitis. There is also sigmoid intraluminal narrowing with proximal colonic distention and fecal stasis for which malignancy not completely excluded. 2. Incidental splenomegaly with calcified granulomas.
[2020-09-12 17:10] VITALS: BP 104/57
[2020-09-12] MEDS ORDERED: Flagyl 500 MG PO ONE (17:49)
[2020-09-12] MEDS ORDERED: Flagyl 500 MG ONE (17:56)
[2020-09-12 18:23] VITALS: PULSE 101; O2SAT 94
== END 2020-09-12 19:37 | disposition home or self-care (01) ==
LOC: ED 14:16
DX: R10.31 Right lower quadrant pain (principal); R10.32 Left lower quadrant pain; R19.7 Diarrhea, unspecified; K52.9 Noninfective gastroenteritis and colitis, unspecified; R11.0 Nausea; J44.9 Chronic obstructive pulmonary disease, unspecified; E11.9 Type 2 diabetes mellitus without complications; Z79.899 Other long term (current) drug therapy
CPT/HCPCS: 36000; 36415; 74176; 80053; 81015; 82150; 83605; 83690; 85025; 87086; 96360; 96374; 96375; 99284; J2270; J2405; A9270-GY

== ENCOUNTER 2020-10-09 16:19 | Emergency (ER) | payer OTHER ==
[2020-10-09] MEDS ORDERED: Zofran 4 MG/2 ML VIAL IV ONE (17:13)
[2020-10-09] MEDS ORDERED: Sodium Chloride 0.9% 1000 ML 1,000 ML IV STA (17:13)
--- NOTE | 2020-10-09 17:13 | ERPHSYRPT ---
- History of Present Illness Historian: patient Exam Limitations: no limitations Patient Subjective Stated Complaint: Abdominal pain Triage Nursing Assessment: Patient brought back to ED via w/c and transferred self to bed. Patient A+O X3. Patient's skin pink, warm and dry. Patient complains of sharp abdominal pain 10/10 that started earlier in the day. Patient complains of N/V. Abdomen soft and round with BS X 4. Patient denies constipation or diarrhea. Timing/Duration: today Activities at Onset: none Quality: sharpness, stabbing Abdominal Pain Onset Location: periumbilical Pain Radiation: back Severity of Pain-Max: moderate Severity of Pain-Current: moderate Modifying Factors: Improves With: nothing Associated Symptoms: nausea, vomiting Hx Tetanus, Diphtheria Vaccination/Date Given: No (unknown) Hx Influenza Vaccination/Date Given: Yes Hx Pneumococcal Vaccination/Date Given: No (unknown when) Immunizations Up to Date: Yes <MIRIAN PAREKH - Last Filed: 10/09/20 19:01> <MAR MILLIGAN - Last Filed: 10/09/20 20:17> - History of Present Illness Time Seen by Provider: 10/09/20 16:55 Physician History: This is a 54-year-old obese white female who was seen here on 09/12/2020 with complaints of abdominal pain. She has a history of insulin-dependent diabetes, hypertension and known umbilical hernias. She has had a hysterectomy past as well as a . She was diagnosed with an acute sigmoid colitis and received Flagyl prescription. Patient also has a history of Crohn's disease. Since that time, she states that she has seen her primary care physician. Patient completed her antibiotics. Today, the patient states that she has abdominal pain is a 10 out of 10 and is periumbilical and goes into her back. It is associated with nausea and vomiting. It is similar to the pain that she had less than a month ago. It is breath and she denies chest pain. (MIRIAN PAREKH) Allergies/Adverse Reactions: codeine [Codeine] Allergy (Mild, Verified 10/09/20 16:36) N&V Penicillins Allergy (Mild, Verified 10/09/20 16:36) Rash Home Medications: RX: Albuterol Common Canister [Ventolin Common Canister] 2 puff IH Q4HPRN PRN 02/15/12 [History] RX: Albuterol/Ipratropium 3ml Neb* [DUONEB 0.5-3 MG/3 ml Neb] 3 ml IH Q2H/PRN PRN 02/15/12 [History] RX: Aripiprazole [Abilify] 10 mg PO DAILY 02/15/12 [History] RX: Budesonide 0.5 mg/2 ml [Pulmicort 0.5 mg/2 ml Respules] 0.5 mg IH BID 02/15/12 [History] RX: Fluoxetine HCl [Prozac] 40 mg PO DAILY 02/15/12 [History] RX: Adalimumab [Humira Pen] 45 units SQ WEEKLY 08/11/20 [History] RX: Atorvastatin Calcium 20 mg PO DAILY 08/11/20 [History] RX: Bupropion HCl [Bupropion Xl] 150 mg PO DAILY 08/11/20 [History] RX: Fluticasone/Vilanterol [Breo Ellipta 100-25 Mcg INH] 1 puff IH DAILY 08/11/20 [History] RX: Insulin Glargine,Hum.rec.anlog [Basaglar Kwikpen U-100] 45 unit SQ HS 08/11/20 [History] RX: Insulin Lispro [Admelog] 7 unit SQ BID 08/11/20 [History] RX: Liraglutide [Victoza 2-Levar] 1.8 ml SQ BID 08/11/20 [History] RX: Lisinopril 40 mg PO DAILY 08/11/20 [History] RX: Metformin HCl [Metformin ER Gastric] 500 mg PO BID 08/11/20 [History] RX: Metoprolol Tartrate 50 mg PO BID 08/11/20 [History] RX: Montelukast Sodium 10 mg [Singulair 10 MG] 10 mg PO QHS 08/11/20 [History] RX: Oxybutynin Chloride Xl 5 mg [Ditropan XL 5 MG] 5 mg PO BID 08/11/20 [History] RX: Prednisone 20 mg [Deltasone 20 mg] 40 mg PO DAILY 08/11/20 [History] Travel Risk - International Travel Have you traveled outside of the country in past 3 weeks: No - Coronavirus Screening Are you exhibiting any of the following symptoms?: No Close contact with a COVID-19 positive Pt in past 14-21 Days: No <MIRIAN PAREKH - Last Filed: 10/09/20 19:01> - Review of Systems Constitutional: No Symptoms Eyes: No Symptoms Ears, Nose, & Throat: No Symptoms Respiratory: No Symptoms Cardiac: No Symptoms Abdominal/Gastrointestinal: Abdominal Pain, Nausea, Vomiting, No Diarrhea Genitourinary Symptoms: No Symptoms Musculoskeletal: No Symptoms Skin: No Symptoms Neurological: No Symptoms Psychological: No Symptoms Endocrine: No Symptoms Hematologic/Lymphatic: No Symptoms Immunological/Allergic: No Symptoms All Other Systems: Reviewed and Negative <MIRIAN PAREKH - Last Filed: 10/09/20 19:01> - Past Medical History Pertinent Past Medical History: Yes Neurological History: Other ENT History: No Pertinent History Cardiac History: No Pertinent History, Hypertension Respiratory History: Asthma, COPD, Sleep Apnea Endocrine Medical History: Diabetes Type II Musculoskeletal History: No Pertinent History GI Medical History: Crohns Disease History: No Pertinent History Psycho-Social History: Anxiety Female Reproductive Disorders: No Pertinent History Other Medical History: Down syndrome reported - Past Surgical History Past Surgical History: Yes Neuro Surgical History: No Pertinent History Cardiac: No Pertinent History Respiratory: No Pertinent History Gastrointestinal: No Pertinent History Genitourinary: No Pertinent History Musculoskeletal: Joint Replacement Female Surgical History: Hysterectomy, Section Other Surgical History: right knee replacement. left knee replacement. PICC in rt upper arm - Social History Smoking Status: Former smoker How long have you smoked: 15 years Exposure to second hand smoke: No Drug Use: none Patient Lives Alone: No Significant Family History: no pertinent family hx - Female History Hx Now: No <MIRIAN PAREKH - Last Filed: 10/09/20 19:01> - Physical Exam General Appearance: no apparent distress, alert, anxiety, obese Eye Exam: PERRL/EOMI, eyes nml inspection Ears, Nose, Throat Exam: normal ENT inspection, moist mucous membranes Neck Exam: normal inspection, non-tender, supple, full range of motion Respiratory Exam: normal breath sounds, lungs clear, No chest tenderness, No respiratory distress Cardiovascular Exam: normal peripheral pulses, tachycardia Gastrointestinal/Abdomen Exam: soft, normal bowel sounds, tenderness, guarding, No rebound Pelvic Exam: not done Rectal Exam: not done Back Exam: normal inspection, normal range of motion, CVA tenderness, No vertebral tenderness Extremity Exam: normal inspection, normal range of motion, pelvis stable Neurologic Exam: alert, oriented x 3, cooperative, 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 tested, normal mood/affect, nml cerebellar function, nml station & gait, sensation nml Skin Exam: normal color, warm, dry Lymphatic Exam: No adenopathy SpO2 Interpretation: normal SpO2: 99 O2 Delivery: Room Air <MIRAIN PAREKH - Last Filed: 10/09/20 19:01> - Nursing Vital Signs Nursing Vital Signs: Initial Vital Signs Temperature 98.7 F 10/09/20 16:43 Pulse Rate 106 H 10/09/20 16:43 Respiratory Rate 18 10/09/20 16:43 Blood Pressure 123/66 10/09/20 16:43 O2 Sat by Pulse Oximetry 99 10/09/20 16:43 Pain Scale Pain Intensity 5 - Course Nursing assessment & vital signs reviewed: Yes <MIRIAN PAREKH - Last Filed: 10/09/20 19:01> - CT Exams Abdomen/Pelvis CT Interpretation: Tele-radiologist Report (. To 09/12/2020 grossly stable moderate sigmoid circumferential wall thickening with stranding and proximal colonic distention. Colitis versus malignancy.) <MAR MILLIGAN - Last Filed: 10/09/20 20:17> Ordered Tests: Active Orders 24 hr Category Date Time Status IV Insertion STAT Care 10/09/20 17:13 Active ABDOMEN AND PELVIS W/0 CONTRAS [CT] Stat Exams 10/09/20 17:13 Taken AMYLASE Stat Lab 10/09/20 05:50 Completed CBC W DIFF Stat Lab 10/09/20 05:50 Completed CMP Stat Lab 10/09/20 05:50 Completed CULTURE,URINE Stat Lab 10/09/20 18:36 Received LIPASE Stat Lab 10/09/20 05:50 Completed Lactic Acid Stat Lab 10/09/20 17:53 Completed UA W/RFX UR CULTURE Stat Lab 10/09/20 18:36 Completed Medication Summary Generic Name Dose Route Start Last Admin Trade Name Freq PRN Reason Stop Dose Admin Potassium Chloride 20 meq in 100 mls @ 50 mls/hr 10/09/20 18:27 10/09/20 18:34 Potassium Chloride 20 Meq In Water 100ml IV 10/09/20 20:26 Not Given STAT ONE Discontinued Medications Generic Name Dose Route Start Last Admin Trade Name Star PRN Reason Stop Dose Admin Ciprofloxacin 500 mg 10/09/20 20:07 Cipro 500 Mg PO 10/09/20 20:08 ONCE STA Sodium Chloride 1,000 mls @ 999 mls/hr 10/09/20 17:13 10/09/20 19:05 Sodium Chloride 0.9% 1000 Ml IV 10/09/20 18:13 Infused .Q1H1M STA Infusion Sodium Chloride Confirm 10/09/20 17:35 Sodium Chloride 0.9% 1000 Ml Administered 10/09/20 17:36 Dose 1,000 mls @ ud .ROUTE .STK-MED ONE Ondansetron HCl 4 mg 10/09/20 17:13 10/09/20 17:39 Zofran 4 Mg/2 Ml Vial IV 10/09/20 17:14 4 mg STAT ONE Administration Ondansetron HCl Confirm 10/09/20 17:35 Zofran 4 Mg/2 Ml Vial Administered 10/09/20 17:36 Dose 4 mg .ROUTE .STK-MED ONE Potassium Chloride 20 meq 10/09/20 18:27 10/09/20 18:36 Klor Con 10 Meq PO 10/09/20 18:28 20 meq STAT ONE Administration Potassium Chloride Confirm 10/09/20 18:35 Klor Con 10 Meq Administered 10/09/20 18:36 Dose 20 meq PO .STK-MED ONE Lab/Rad Data: Laboratory Result Diagrams 10/09/20 05:50 10/09/20 05:50 Laboratory Results 10/09/20 10/09/20 10/09/20 Range/Units 18:36 17:53 05:50 WBC (4.0-10.5) K/mm3 RBC (4.1-5.4) M/mm3 Hgb (12.0-16.0) gm/dl Hct (35-47) % MCV (78-100) fl MCH (26-32) pg MCHC (32-36) g/dl RDW (11.5-14.0) % Plt Count (150-450) K/mm3 MPV (7.5-11.0) fl Gran % (36.0-66.0) % Eos # (Auto) (0-0.5) Absolute Lymphs (auto) (1.0-4.6) Absolute Monos (auto) (0.0-1.3) Lymphocytes % (24.0-44.0) % Monocytes % (0.0-12.0) % Eosinophils % (0.00-5.0) % Basophils % (0.0-0.4) % Absolute Granulocytes (1.4-6.9) Basophils # (0-0.4) Sodium 130 L (137-145) mmol/L Potassium 3.0 L (3.5-5.1) mmol/L Chloride 96 L (98-107) mmol/L Carbon Dioxide 31 H (22-30) mmol/L Anion Gap 7.0 (5-15) MEQ/L BUN 23 H (7-17) mg/dL Creatinine 1.30 H (0.52-1.04) mg/dL Estimated GFR 45.5 ML/MIN Glucose 91 (74-106) mg/dL Lactic Acid 1.5 (0.4-2.0) Calcium 8.6 (8.4-10.2) mg/dL Total Bilirubin 0.40 (0.2-1.3) mg/dL AST 16 (14-36) U/L ALT 15 (0-35) U/L Alkaline Phosphatase 64 (38-126) U/L Serum Total Protein 7.2 (6.3-8.2) g/dL Albumin 3.5 (3.5-5.0) g/dL Amylase < 30 L (30-110) U/L Lipase 99 (23-300) U/L Urine Color YELLOW (YELLOW) Urine Appearance SLIGHTLY CLOUDY (CLEAR) Urine pH 5.0 (5-6) Ur Specific [place] 1.014 (1.005-1.025) Urine Protein NEGATIVE (Negative) Urine Ketones NEGATIVE (NEGATIVE) Urine Blood MODERATE (0-5) Imer/ul Urine Nitrite NEGATIVE (NEGATIVE) Urine Bilirubin NEGATIVE (NEGATIVE) Urine Urobilinogen NEGATIVE (0-1) mg/dL Ur Leukocyte Esterase MODERATE (NEGATIVE) Urine WBC (Auto) 26-50 (0-5) /HPF Urine RBC (Auto) 6-10 (0-2) /HPF U Epithel Cells (Auto) RARE (FEW) /HPF Urine Bacteria (Auto) RARE (NEGATIVE) /HPF Urine Mucus (Auto) SLIGHT (NEGATIVE) /HPF Urine Culture Reflexed YES (NO) Urine Glucose NEGATIVE (NEGATIVE) mg/dL 10/09/20 Range/Units 05:50 WBC 9.0 (4.0-10.5) K/mm3 RBC 3.82 L (4.1-5.4) M/mm3 Hgb 10.8 L (12.0-16.0) gm/dl Hct 33.4 L (35-47) % MCV 87.4 (78-100) fl MCH 28.3 (26-32) pg MCHC 32.3 (32-36) g/dl RDW 16.7 H (11.5-14.0) % Plt Count 429 (150-450) K/mm3 MPV 8.4 (7.5-11.0) fl Gran % 64.9 (36.0-66.0) % Eos # (Auto) 0.10 (0-0.5) Absolute Lymphs (auto) 2.35 (1.0-4.6) Absolute Monos (auto) 0.68 (0.0-1.3) Lymphocytes % 26.2 (24.0-44.0) % Monocytes % 7.6 (0.0-12.0) % Eosinophils % 1.1 (0.00-5.0) % Basophils % 0.2 (0.0-0.4) % Absolute Granulocytes 5.83 (1.4-6.9) Basophils # 0.02 (0-0.4) Sodium (137-145) mmol/L Potassium (3.5-5.1) mmol/L Chloride (98-107) mmol/L Carbon Dioxide (22-30) mmol/L Anion Gap (5-15) MEQ/L BUN (7-17) mg/dL Creatinine (0.52-1.04) mg/dL Estimated GFR ML/MIN Glucose (74-106) mg/dL Lactic Acid (0.4-2.0) Calcium (8.4-10.2) mg/dL Total Bilirubin (0.2-1.3) mg/dL AST (14-36) U/L ALT (0-35) U/L Alkaline Phosphatase (38-126) U/L Serum Total Protein (6.3-8.2) g/dL Albumin (3.5-5.0) g/dL Amylase (30-110) U/L Lipase (23-300) U/L Urine Color (YELLOW) Urine Appearance (CLEAR) Urine pH (5-6) Ur Specific [place] (1.005-1.025) Urine Protein (Negative) Urine Ketones (NEGATIVE) Urine Blood (0-5) Imer/ul Urine Nitrite (NEGATIVE) Urine Bilirubin (NEGATIVE) Urine Urobilinogen (0-1) mg/dL Ur Leukocyte Esterase (NEGATIVE) Urine WBC (Auto) (0-5) /HPF Urine RBC (Auto) (0-2) /HPF U Epithel Cells (Auto) (FEW) /HPF Urine Bacteria (Auto) (NEGATIVE) /HPF Urine Mucus (Auto) (NEGATIVE) /HPF Urine Culture Reflexed (NO) Urine Glucose (NEGATIVE) mg/dL - Progress Progress: improved, pain not gone completely, re-examined Counseled pt/family regarding: lab results, diagnosis, need for follow-up, rad results <MIRIAN PAREKH - Last Filed: 10/09/20 19:01> - Progress Discussed with : Meka <MAR MILLIGAN - Last Filed: 10/09/20 20:17> - Progress Progress Note: 10/09/20 18:30 CAT scan of the abdomen pelvis without contrast is compared to similar test performed on 09/12/2020. There is grossly stable moderate sigmoid circumferential wall thickening with stranding and proximal colonic distention. Colitis versus malignancy? 10/09/20 19:01 I have signed out this patient to Dr. Mar Milligan. I have reviewed the patient history, condition and findings of the current laboratory and radiographic st udy results and the pending wants for him to follow-up with. He accepts the patient in transfer. He will make final disposition. (MIRIAN PAREKH) Patient endorsed to Dr. Milligan at approximately 7 PM. Advised to reassess patient. Patient states she feels well. No active abdominal pain. No nausea or vomiting. Lab work-up revealed a hyponatremia at 130. Patient received IV fluids. Hypokalemia at 3.0. Potassium administered orally. UTI observed patient has a pyuria. Case discussed with Dr. Almodovar our patient's primary care physician. He is aware of the colitis versus malignancy. He states that patient was seen at [facility] within the past 3 to 4 weeks. Gastroenterology evaluated her and found her to have Crohn's colitis. Patient last colonoscopy was approximately [address] Almodovar would like patient to have ciprofloxacin for her urinary tract infection. A dose was administered in our ED prior to discharge. A prescription for the same will be provided for patient. Patient was informed of her CAT scan findings and possible malignancy. Patient understands and agrees to the importance of follow-up with her primary care doctor within 48 hours. Patient agrees to follow-up with Dr. Almodovar within 48 hours for reevaluation. Will discharge home at this time. Patient voices no other complaints or concerns at this time. 10/09/20 20:12 (MAR MILLIGAN) - Departure Departure Disposition: Home Critical Care Time: No <MIRIAN PAREKH - Last Filed: 10/09/20 19:01> <MAR MILLIGAN - Last Filed: 10/09/20 20:17> - Departure Clinical Impression: Colitis, Hypokalemia, Hyponatremia Condition: Stable Referrals: KENDRA ALMODOVAR MD [Primary Care Provider] - Additional Instructions: Plenty of fluids. Take your medication as prescribed. Follow-up with your primary care doctor tomorrow for further management. Discussed with your doctor possible evaluation with a office director if indicated. Prescriptions: Ciprofloxacin [Cipro 500 MG] 500 mg PO BID 5 Days #10 tablet Metronidazole 500 mg [Flagyl 500 MG] 500 mg PO TID #15 tablet
[2020-10-09] MEDS ORDERED: Sodium Chloride 0.9% 1000 ML 1,000 ML ONE (17:35)
[2020-10-09] MEDS ORDERED: Zofran 4 MG/2 ML VIAL ONE (17:35)
[2020-10-09 18:09] LABS: Absolute Neutrophil Ct (ANC) 5.83 (1.4-6.9); BASOPHIL % 0.2 % (0.0-0.4); Basophil (Absolute #) 0.02 (0-0.4); Eosinophil % 1.1 % (0.00-5.0); Hematocrit 33.4 % (35-47); Hemoglobin 10.8 gm/dl (12.0-16.0); Lymphocyte (Absolute #) 2.35 (1.0-4.6); Lymphocytes % 26.2 % (24.0-44.0); Mean Cell Volume 87.4 fl (78-100); Mean Corpuscular Hemoglobin 28.3 pg (26-32); Mean Corpuscular Hgb Concent. 32.3 g/dl (32-36); Mean Platelet Volume 8.4 fl (7.5-11.0); Monocyte (Absolute #) 0.68 (0.0-1.3); Monocytes % 7.6 % (0.0-12.0); Neutrophil % 64.9 % (36.0-66.0); Platelet Count 429 K/mm3 (150-450); Red Blood Count 3.82 M/mm3 (4.1-5.4); Red Cell Distribution Width 16.7 % (11.5-14.0)
[2020-10-09 18:13] LABS: ALBUMIN 3.5 g/dL (3.5-5.0); ALKALINE PHOSPHATASE 64 U/L (38-126); AMYLASE < 30 U/L (30-110); BLOOD UREA NITROGEN 23 mg/dL (7-17); CHLORIDE 96 mmol/L (98-107); Calcium 8.6 mg/dL (8.4-10.2); Carbon Dioxide 31 mmol/L (22-30); EST GLOMERULAR FILTRATION RATE 45.5 ML/MIN; Glucose 91 mg/dL (74-106); LIPASE 99 U/L (23-300); SGOT/AST 16 U/L (14-36); SGPT/ALT 15 U/L (0-35); SODIUM 130 mmol/L (137-145); Total Protein 7.2 g/dL (6.3-8.2)
[2020-10-09] MEDS ORDERED: Klor Con 10 MEQ PO ONE ×2 (18:27→18:35)
[2020-10-09] MEDS ORDERED: POTASSIUM CHLORIDE 20 mEq IN WATER 100ML 20 MEQ/100 ML BAG IV ONE (18:27)
[2020-10-09 19:41] LABS: Appearance SLIGHTLY CLOUDY (CLEAR); Bacteria RARE /HPF (NEGATIVE); Bilirubin NEGATIVE (NEGATIVE); Blood MODERATE Ery/ul (0-5); Epithelial Cells RARE /HPF (FEW); Glucose NEGATIVE (NEGATIVE); Ketones NEGATIVE (NEGATIVE); Leukocyte Esterase MODERATE (NEGATIVE); Mucus SLIGHT /HPF (NEGATIVE); Nitrite NEGATIVE (NEGATIVE); Protein,Urine Dip NEGATIVE (Negative); Specific Gravity 1.014 (1.005-1.025); Urobilinogen NEGATIVE mg/dL (0-1); WBC 26-50 /HPF (0-5)
[2020-10-09] MEDS ORDERED: Cipro 500 MG PO STA (20:07)
[2020-10-09 20:12] VITALS: O2SAT 97
[2020-10-09] MEDS ORDERED: Cipro 500 MG ONE (20:12)
[2020-10-09 20:35] VITALS: BP 98/54; PULSE 99
--- NOTE | 2020-10-10 08:48 | XRAY ---
Indication: Abdomen pain. Multiple contiguous axial images obtained through the abdomen and pelvis without contrast as ordered. Comparison: September 12, 2020. Lung bases again demonstrates dependent atelectasis without focal infiltrate or effusion. Heart is not enlarged. Noncontrasted stomach and bowel loops remain nonobstructed. Sigmoid colon again demonstrates grossly stable circumferential wall thickening with mild pericolonic stranding suggesting underlying inflammatory process such as colitis. Sigmoid colon malignancy remains in the differential as the proximal colon again demonstrates moderate fecal/fluid distention throughout. No free fluid/air. Stable appendectomy, cholecystectomy, 1 cm left adrenal adenoma, 13 cm splenomegaly with splenic calcified granulomas, and mild aortoiliac calcifications. Remaining liver, pancreas, spleen, adrenal glands, kidneys, ureters, bladder, and uterus appear unremarkable for noncontrast exam. Osseous structures intact again with minimal degenerative changes throughout the spine. Impression: 1. Grossly stable diffuse sigmoid circumferential wall thickening with stranding and proximal colonic distention. Again rule out sigmoid colitis versus malignancy. 2. Again incidental splenomegaly and left adrenal adenoma.
== END 2020-10-09 20:35 | disposition home or self-care (01) ==
LOC: ED 16:19
DX: K52.9 Noninfective gastroenteritis and colitis, unspecified (principal); E87.6 Hypokalemia; E87.1 Hypo-osmolality and hyponatremia; R11.2 Nausea with vomiting, unspecified; Z79.899 Other long term (current) drug therapy; I10 Essential (primary) hypertension; E11.9 Type 2 diabetes mellitus without complications
CPT/HCPCS: 36000; 36415; 74176; 80053; 81001; 82150; 83605; 83690; 85025; 87086; 96360; 96374; 99284; J2405; A9270-GY

== ENCOUNTER 2020-10-26 19:53 | Emergency (ER) | payer OTHER ==
[2020-10-26 20:53] VITALS: O2SAT 100
--- NOTE | 2020-10-26 21:05 | ERPHSYRPT ---
- History of Present Illness Time Seen by Provider: 10/26/20 20:00 Source: patient Exam Limitations: no limitations Patient Subjective Stated Complaint: "my colostomy bag is leaking." Triage Nursing Assessment: Patient reported that her colostomy bag had become dislodged off of the site. Patient reported having the colostomy recently placed but unsure of the reasoning why. patient stated, "my sister knows all that stuff." Patient denied any decrease in output. Denied any change in her abdominal pain following the surgery. Upon cleansing the site, three areas of superficial dehiscence noted to the lower surigical scar. area of dehiscence no kiana to be very superficial without any noted exudate. Skin around the surgical scar noted to be erythematous and edematous. No noted edxudate. Physician History: Patient denies he is an extremely poor historian. She was complaining of some pain her surgery was done by Dr. Miki Inman. There seems to be some superficial dehiscence of the surgical incision as well as a dislodgment of the colostomy. Timing/Duration: today Severity: mild Modifying Factors: Improves With: nothing Associated Symptoms: abdominal pain Allergies/Adverse Reactions: codeine [Codeine] Allergy (Mild, Verified 10/26/20 20:40) N&V Penicillins Allergy (Mild, Verified 10/26/20 20:40) Rash Home Medications: Albuterol Common Canister [Ventolin Common Canister] 2 puff IH Q4HPRN PRN 02/15/12 [History] Albuterol/Ipratropium 3ml Neb* [DUONEB 0.5-3 MG/3 ml Neb] 3 ml IH Q2H/PRN PRN 02/15/12 [History] Aripiprazole [Abilify] 10 mg PO DAILY 02/15/12 [History] Budesonide 0.5 mg/2 ml [Pulmicort 0.5 mg/2 ml Respules] 0.5 mg IH BID 02/15/12 [History] Fluoxetine HCl [Prozac] 40 mg PO DAILY 02/15/12 [History] Adalimumab [Humira Pen] 45 units SQ WEEKLY 08/11/20 [History] Atorvastatin Calcium 20 mg PO DAILY 08/11/20 [History] Fluticasone/Vilanterol [Breo Ellipta 100-25 Mcg INH] 1 puff IH DAILY 08/11/20 [History] Insulin Glargine,Hum.rec.anlog [Basaglar Ramonikpen U-100] 45 unit SQ HS 08/11/20 [History] Insulin Lispro [Admelog] 7 unit SQ BID 08/11/20 [History] Liraglutide [Victoza 2-Levar] 1.8 ml SQ BID 08/11/20 [History] Lisinopril 40 mg PO DAILY 08/11/20 [History] Metformin HCl [Metformin ER Gastric] 500 mg PO BID 08/11/20 [History] Metoprolol Tartrate 50 mg PO BID 08/11/20 [History] Montelukast Sodium 10 mg [Singulair 10 MG] 10 mg PO QHS 08/11/20 [History] Oxybutynin Chloride Xl 5 mg [Ditropan XL 5 MG] 5 mg PO BID 08/11/20 [History] Prednisone 20 mg [Deltasone 20 mg] 40 mg PO DAILY 08/11/20 [History] buPROPion HCL [Bupropion Xl] 150 mg PO DAILY 08/11/20 [History] Hx Tetanus, Diphtheria Vaccination/Date Given: No (unknown) Hx Influenza Vaccination/Date Given: Yes Hx Pneumococcal Vaccination/Date Given: No (unknown when) Travel Risk - International Travel Have you traveled outside of the country in past 3 weeks: No - Coronavirus Screening Are you exhibiting any of the following symptoms?: No Close contact with a COVID-19 positive Pt in past 14-21 Days: No - Review of Systems Constitutional: No Fever, No Chills Eyes: No Symptoms Ears, Nose, & Throat: No Symptoms Respiratory: No Cough, No Dyspnea Cardiac: No Chest Pain, No Edema, No Syncope Abdominal/Gastrointestinal: Abdominal Pain Genitourinary Symptoms: No Dysuria Musculoskeletal: No Back Pain, No Neck Pain Skin: No Rash Neurological: No Dizziness, No Focal Weakness, No Sensory Changes - Past Medical History Pertinent Past Medical History: Yes Neurological History: Other ENT History: No Pertinent History Cardiac History: No Pertinent History, Hypertension Respiratory History: Asthma, COPD, Sleep Apnea Endocrine Medical History: Diabetes Type II Musculoskeletal History: No Pertinent History GI Medical History: Crohns Disease History: No Pertinent History Psycho-Social History: Anxiety Female Reproductive Disorders: No Pertinent History Other Medical History: Down syndrome reported - Past Surgical History Past Surgical History: Yes Neuro Surgical History: No Pertinent History Cardiac: No Pertinent History Respiratory: No Pertinent History Gastrointestinal: No Pertinent History, Colon Resection Genitourinary: No Pertinent History Musculoskeletal: Joint Replacement Female Surgical History: Hysterectomy, Section Other Surgical History: right knee replacement. left knee replacement. PICC in rt upper arm. Colostomy - Social History Smoking Status: Former smoker How long have you smoked: 15 years Exposure to second hand smoke: No Drug Use: none Patient Lives Alone: No Significant Family History: no pertinent family hx - Nursing Vital Signs Nursing Vital Signs: Initial Vital Signs Temperature 98.7 F 10/26/20 19:53 Pulse Rate 90 10/26/20 19:53 Respiratory Rate 18 10/26/20 19:53 Blood Pressure 111/60 10/26/20 19:53 O2 Sat by Pulse Oximetry 100 10/26/20 19:53 Pain Scale Pain Intensity 8 - Physical Exam General Appearance: mild distress, alert Eye Exam: PERRL/EOMI, eyes nml inspection Ears, Nose, Throat Exam: normal ENT inspection, TMs normal, pharynx normal, moist mucous membranes Neck Exam: normal inspection, non-tender, supple, full range of motion Respiratory Exam: normal breath sounds, lungs clear, No respiratory distress Cardiovascular Exam: regular rate/rhythm, normal heart sounds, normal peripheral pulses Gastrointestinal/Abdomen Exam: soft, normal bowel sounds, other (Has become dislodged allowing stool to contaminate the wound. There is also some separation of the skin edges of the lower portion of the surgical incision.), No tenderness, No mass Back Exam: normal inspection, normal range of motion, No CVA tenderness, No vertebral tenderness Extremity Exam: normal inspection, normal range of motion, pelvis stable Neurologic Exam: alert, oriented x 3, cooperative, normal mood/affect, nml cerebellar function, nml station & gait, sensation nml, No motor deficits Skin Exam: normal color, warm, dry, No rash Lymphatic Exam: No adenopathy SpO2: 100 - Course Nursing assessment & vital signs reviewed: Yes - Progress Progress: improved Progress Note: 10/26/20 21:04 The colostomy and applied Steri-Strips to the edges. We will also start her on Cleocin orally and she will follow up with Dr. Inman on Thursday - Departure Departure Disposition: Home Clinical Impression: Colostomy dysfunction Condition: Stable Critical Care Time: No Referrals: KENDRA ALMODOVAR MD [Primary Care Provider] - Instructions: How to Care for Your Ostomy, Adult Prescriptions: clindamycin HCL [Cleocin HCl] 300 mg PO TID 10 Days #30 capsule MDD 3
[2020-10-26] MEDS ORDERED: CLEOCIN 150 MG CAPSULE PO ONE (21:07)
[2020-10-26] MEDS ORDERED: CLEOCIN 150 MG CAPSULE ONE (21:11)
[2020-10-26 21:18] VITALS: BP 124/63; PULSE 92
== END 2020-10-26 22:00 | disposition home or self-care (01) ==
LOC: ED 19:53
DX: K94.03 Colostomy malfunction (principal); R10.9 Unspecified abdominal pain; Z79.899 Other long term (current) drug therapy
CPT/HCPCS: 99283; A9270-GY

== ENCOUNTER 2020-11-12 17:15 | Emergency (ER) | payer OTHER ==
[2020-11-12] MEDS ORDERED: TORAdol 30 mg Injection IV ONE (17:39)
[2020-11-12 17:42] LABS: Absolute Neutrophil Ct (ANC) 6.25 (1.4-6.9); BASOPHIL % 0.2 % (0.0-0.4); Basophil (Absolute #) 0.02 (0-0.4); Eosinophil % 1.1 % (0.00-5.0); Eosinophil (Absolute #) 0.12 (0-0.5); Hematocrit 34.1 % (35-47); Hemoglobin 10.5 gm/dl (12.0-16.0); Lymphocyte (Absolute #) 3.97 (1.0-4.6); Lymphocytes % 35.7 % (24.0-44.0); Mean Cell Volume 91.4 fl (78-100); Mean Corpuscular Hemoglobin 28.2 pg (26-32); Mean Corpuscular Hgb Concent. 30.8 g/dl (32-36); Mean Platelet Volume 8.3 fl (7.5-11.0); Monocyte (Absolute #) 0.75 (0.0-1.3); Monocytes % 6.8 % (0.0-12.0); Neutrophil % 56.2 % (36.0-66.0); Platelet Count 536 K/mm3 (150-450); Red Blood Count 3.73 M/mm3 (4.1-5.4); Red Cell Distribution Width 16.6 % (11.5-14.0); White Blood Count 11.1 K/mm3 (4.0-10.5)
[2020-11-12] MEDS ORDERED: TORAdol 30 mg Injection ONE (17:42)
--- NOTE | 2020-11-12 17:45 | ERPHSYRPT ---
- History of Present Illness Historian: patient Patient Subjective Stated Complaint: Pt had a colostomy placed 10/18/20 and pt reports having LLQ pain that is an 8/10, pt reports that her bag wont stay on and it's her last bag Triage Nursing Assessment: Pt brought to the ER via EMS, hypertensive, rates LLQ pain as 8/10, stool light brown in color and soft, states that the pain feels like a stabbing pain that began approx 1.5 hours ago, denies N&V, last oral intake at 1200, doesn't appear to be in any distress Physician History: 54 yo wf w colostomy 10/18/20 at [facility] w need for colostomy bags and LLQ pain x 2hrs per ambulance. Pt denies N/V/chest pain/dysuria/hematuria. Colostomy is draining well. Timing/Duration: hour(s) (2hrs) Activities at Onset: rest Quality: stabbing Abdominal Pain Onset Location: LLQ Pain Radiation: no radiation Severity of Pain-Max: severe Severity of Pain-Current: severe Modifying Factors: Improves With: nothing Associated Symptoms: No back, No chest pain, No diaphoresis, No diarrhea, No fever/chills, No fatigue, No headache, No heartburn, No loss of appetite, No nausea, No neck pain, No rash, No shortness of breath, No syncope, No vomiting, No weakness Previous symptoms: no prior history Allergies/Adverse Reactions: codeine [Codeine] Allergy (Mild, Verified 11/12/20 17:28) N&V Penicillins Allergy (Mild, Verified 11/12/20 17:28) Rash Home Medications: Albuterol Common Canister [Ventolin Common Canister] 2 puff IH Q4HPRN PRN 02/15/12 [History] Albuterol/Ipratropium 3ml Neb* [DUONEB 0.5-3 MG/3 ml Neb] 3 ml IH Q2H/PRN PRN 02/15/12 [History] Aripiprazole [Abilify] 10 mg PO DAILY 02/15/12 [History] Budesonide 0.5 mg/2 ml [Pulmicort 0.5 mg/2 ml Respules] 0.5 mg IH BID 02/15/12 [History] Fluoxetine HCl [Prozac] 40 mg PO DAILY 02/15/12 [History] Adalimumab [Humira Pen] 45 units SQ WEEKLY 08/11/20 [History] Atorvastatin Calcium 20 mg PO DAILY 08/11/20 [History] Fluticasone/Vilanterol [Breo Ellipta 100-25 Mcg INH] 1 puff IH DAILY 08/11/20 [History] Insulin Glargine,Hum.rec.anlog [Basaglar Kwikpen U-100] 45 unit SQ HS 08/11/20 [History] Insulin Lispro [Admelog] 7 unit SQ BID 08/11/20 [History] Liraglutide [Victoza 2-Levar] 1.8 ml SQ BID 08/11/20 [History] Lisinopril 40 mg PO DAILY 08/11/20 [History] Metformin HCl [Metformin ER Gastric] 500 mg PO BID 08/11/20 [History] Metoprolol Tartrate 50 mg PO BID 08/11/20 [History] Montelukast Sodium 10 mg [Singulair 10 MG] 10 mg PO QHS 08/11/20 [History] Oxybutynin Chloride Xl 5 mg [Ditropan XL 5 MG] 5 mg PO BID 08/11/20 [History] Prednisone 20 mg [Deltasone 20 mg] 40 mg PO DAILY 08/11/20 [History] buPROPion HCL [Bupropion Xl] 150 mg PO DAILY 08/11/20 [History] Hx Tetanus, Diphtheria Vaccination/Date Given: No (unknown) Hx Influenza Vaccination/Date Given: Yes Hx Pneumococcal Vaccination/Date Given: No (unknown when) Travel Risk - International Travel Have you traveled outside of the country in past 3 weeks: No - Coronavirus Screening Are you exhibiting any of the following symptoms?: No Close contact with a COVID-19 positive Pt in past 14-21 Days: No - Review of Systems Constitutional: No Symptoms Eyes: No Symptoms Ears, Nose, & Throat: No Symptoms Respiratory: No Symptoms Cardiac: No Symptoms Abdominal/Gastrointestinal: Abdominal Pain, No Nausea, No Vomiting, No Diarrhea, No Constipation, No Hematemesis, No Hematochezia, No Melena, No Dysphagia Genitourinary Symptoms: No Symptoms Musculoskeletal: No Symptoms Skin: No Symptoms Neurological: No Symptoms Psychological: No Symptoms Endocrine: No Symptoms Hematologic/Lymphatic: No Symptoms Immunological/Allergic: No Symptoms - Past Medical History Pertinent Past Medical History: Yes Neurological History: Other ENT History: No Pertinent History Cardiac History: No Pertinent History, Hypertension Respiratory History: Asthma, COPD, Sleep Apnea Endocrine Medical History: Diabetes Type II Musculoskeletal History: No Pertinent History GI Medical History: Crohns Disease History: No Pertinent History Psycho-Social History: Anxiety Female Reproductive Disorders: No Pertinent History Other Medical History: Down syndrome reported - Past Surgical History Past Surgical History: Yes Neuro Surgical History: No Pertinent History Cardiac: No Pertinent History Respiratory: No Pertinent History Gastrointestinal: No Pertinent History, Colon Resection Genitourinary: No Pertinent History Musculoskeletal: Joint Replacement Female Surgical History: Hysterectomy, Section Other Surgical History: right knee replacement. left knee replacement. PICC in rt upper arm. Colostomy - Social History Smoking Status: Former smoker How long have you smoked: 15 years Exposure to second hand smoke: No (wood burner at home) Drug Use: none Patient Lives Alone: No Significant Family History: no pertinent family hx - Female History Hx Now: No - Nursing Vital Signs Nursing Vital Signs: Initial Vital Signs Temperature 98.0 F 11/12/20 17:18 Pulse Rate 87 11/12/20 17:18 Blood Pressure 169/97 11/12/20 17:18 O2 Sat by Pulse Oximetry 100 11/12/20 17:18 Pain Scale Pain Intensity 0 - Physical Exam General Appearance: no apparent distress, obese Eye Exam: PERRL/EOMI, eyes nml inspection Ears, Nose, Throat Exam: normal ENT inspection, TMs normal, pharynx normal, moist mucous membranes Neck Exam: normal inspection, non-tender, supple, full range of motion, No meningismus, No mass, No Brudzinski, No Kernig's, No carotid bruit Respiratory Exam: normal breath sounds, lungs clear, airway intact, No respiratory distress Cardiovascular Exam: regular rate/rhythm, normal heart sounds, normal peripheral pulses, No murmur Gastrointestinal/Abdomen Exam: soft, normal bowel sounds, tenderness (Mobidly obese/Colostomy stoma pink, viable, no bleeding/TTP LLQ/guarding wo rebound) Neurologic Exam: alert, oriented x 3, cooperative, residential 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 director II-XII 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 as tested, normal mood/affect, nml cerebellar function, nml station & gait, sensation nml, No motor deficits Skin Exam: normal color Lymphatic Exam: adenopathy SpO2 Interpretation: normal SpO2: 100 O2 Delivery: Room Air - Course Nursing assessment & vital signs reviewed: Yes - CT Exams Abdomen/Pelvis CT Interpretation: Discussed w/radiologist (Nothing acute) Ordered Tests: Active Orders 24 hr Category Date Time Status IV Insertion STAT Care 11/12/20 17:24 Completed ABDOMEN AND PELVIS W CONTRAST [CT] Stat Exams 11/12/20 18:05 Taken AMYLASE Stat Lab 11/12/20 17:30 Completed CBC W DIFF Stat Lab 11/12/20 17:30 Completed CMP Stat Lab 11/12/20 17:30 Completed LIPASE Stat Lab 11/12/20 17:30 Completed TROPONIN Q3H Lab 11/12/20 17:30 Completed UA W/RFX UR CULTURE Stat Lab 11/12/20 17:24 Completed Medication Summary Discontinued Medications Generic Name Dose Route Start Last Admin Trade Name Freq PRN Reason Stop Dose Admin Ketorolac Tromethamine 15 mg 11/12/20 17:39 11/12/20 17:42 Toradol 30 Mg Injection IV 11/12/20 17:40 15 mg STAT ONE Administration Ketorolac Tromethamine Confirm 11/12/20 17:42 Toradol 30 Mg Injection Administered 11/12/20 17:43 Dose 30 mg .ROUTE .STK-MED ONE Potassium Chloride 40 meq 11/12/20 18:30 11/12/20 18:32 Klor Con 10 Meq PO 11/12/20 18:31 40 meq STAT ONE Administration Potassium Chloride Confirm 11/12/20 18:31 Klor Con 10 Meq Administered 11/12/20 18:32 Dose 40 meq PO .STK-MED ONE Lab/Rad Data: Laboratory Result Diagrams 11/12/20 17:30 11/12/20 17:30 Laboratory Results 11/12/20 11/12/20 11/12/20 Range/Units 17:30 17:30 17:30 WBC 11.1 H (4.0-10.5) K/mm3 RBC 3.73 L (4.1-5.4) M/mm3 Hgb 10.5 L (12.0-16.0) gm/dl Hct 34.1 L (35-47) % MCV 91.4 (78-100) fl MCH 28.2 (26-32) pg MCHC 30.8 L (32-36) g/dl RDW 16.6 H (11.5-14.0) % Plt Count 536 H (150-450) K/mm3 MPV 8.3 (7.5-11.0) fl Gran % 56.2 (36.0-66.0) % Eos # (Auto) 0.12 (0-0.5) Absolute Lymphs (auto) 3.97 (1.0-4.6) Absolute Monos (auto) 0.75 (0.0-1.3) Lymphocytes % 35.7 (24.0-44.0) % Monocytes % 6.8 (0.0-12.0) % Eosinophils % 1.1 (0.00-5.0) % Basophils % 0.2 (0.0-0.4) % Absolute Granulocytes 6.25 (1.4-6.9) Basophils # 0.02 (0-0.4) Sodium 137 (137-145) mmol/L Potassium 2.8 L* (3.5-5.1) mmol/L Chloride 93 L (98-107) mmol/L Carbon Dioxide 36 H (22-30) mmol/L Anion Gap 10.3 (5-15) MEQ/L BUN 13 (7-17) mg/dL Creatinine 0.75 (0.52-1.04) mg/dL Estimated GFR > 60.0 ML/MIN Glucose 97 (74-106) mg/dL Calcium 9.2 (8.4-10.2) mg/dL Total Bilirubin 0.20 (0.2-1.3) mg/dL AST 23 (14-36) U/L ALT 22 (0-35) U/L Alkaline Phosphatase 56 (38-126) U/L Troponin I < 0.012 (0.000-0.034) ng/mL Serum Total Protein 7.7 (6.3-8.2) g/dL Albumin 3.9 (3.5-5.0) g/dL Amylase 36 (30-110) U/L Lipase 130 (23-300) U/L Urine Color (YELLOW) Urine Appearance (CLEAR) Urine pH (5-6) Ur Specific Hume (1.005-1.025) Urine Protein (Negative) Urine Ketones (NEGATIVE) Urine Blood (0-5) Imer/ul Urine Nitrite (NEGATIVE) Urine Bilirubin (NEGATIVE) Urine Urobilinogen (0-1) mg/dL Ur Leukocyte Esterase (NEGATIVE) Urine WBC (Auto) (0-5) /HPF Urine RBC (Auto) (0-2) /HPF U Hyaline Cast (Auto) (0-2) /LPF U Epithel Cells (Auto) (FEW) /HPF Urine Bacteria (Auto) (NEGATIVE) /HPF Urine Mucus (Auto) (NEGATIVE) /HPF Urine Culture Reflexed (NO) Urine Glucose (NEGATIVE) mg/dL 11/12/20 Range/Units 17:24 WBC (4.0-10.5) K/mm3 RBC (4.1-5.4) M/mm3 Hgb (12.0-16.0) gm/dl Hct (35-47) % MCV (78-100) fl MCH (26-32) pg MCHC (32-36) g/dl RDW (11.5-14.0) % Plt Count (150-450) K/mm3 MPV (7.5-11.0) fl Gran % (36.0-66.0) % Eos # (Auto) (0-0.5) Absolute Lymphs (auto) (1.0-4.6) Absolute Monos (auto) (0.0-1.3) Lymphocytes % (24.0-44.0) % Monocytes % (0.0-12.0) % Eosinophils % (0.00-5.0) % Basophils % (0.0-0.4) % Absolute Granulocytes (1.4-6.9) Basophils # (0-0.4) Sodium (137-145) mmol/L Potassium (3.5-5.1) mmol/L Chloride (98-107) mmol/L Carbon Dioxide (22-30) mmol/L Anion Gap (5-15) MEQ/L BUN (7-17) mg/dL Creatinine (0.52-1.04) mg/dL Estimated GFR ML/MIN Glucose (74-106) mg/dL Calcium (8.4-10.2) mg/dL Total Bilirubin (0.2-1.3) mg/dL AST (14-36) U/L ALT (0-35) U/L Alkaline Phosphatase (38-126) U/L Troponin I (0.000-0.034) ng/mL Serum Total Protein (6.3-8.2) g/dL Albumin (3.5-5.0) g/dL Amylase (30-110) U/L Lipase (23-300) U/L Urine Color YELLOW (YELLOW) Urine Appearance CLEAR (CLEAR) Urine pH 6.0 (5-6) Ur Specific Hume 1.016 (1.005-1.025) Urine Protein NEGATIVE (Negative) Urine Ketones NEGATIVE (NEGATIVE) Urine Blood NEGATIVE (0-5) Imer/ul Urine Nitrite NEGATIVE (NEGATIVE) Urine Bilirubin NEGATIVE (NEGATIVE) Urine Urobilinogen NEGATIVE (0-1) mg/dL Ur Leukocyte Esterase SMALL (NEGATIVE) Urine WBC (Auto) 3-5 (0-5) /HPF Urine RBC (Auto) NONE (0-2) /HPF U Hyaline Cast (Auto) 3-5 (0-2) /LPF U Epithel Cells (Auto) RARE (FEW) /HPF Urine Bacteria (Auto) NONE (NEGATIVE) /HPF Urine Mucus (Auto) SLIGHT (NEGATIVE) /HPF Urine Culture Reflexed NO (NO) Urine Glucose NEGATIVE (NEGATIVE) mg/dL - Progress Progress: improved Progress Note: 11/12/20 19:52 15mg IV Toradol w improvement in pain Colostomy bag placed on pt and bags sent home w pt Counseled pt/family regarding: lab results, diagnosis, need for follow-up, rad results - Departure Departure Disposition: Home Clinical Impression: Abdominal pain, Colostomy care Condition: Stable Critical Care Time: No Referrals: KENDRA ALMODOVAR MD [Primary Care Provider] - Instructions: Acute Abdomen (Belly Pain), Adult (DC) Additional Instructions: Return to ER for increasing pain or temperature greater than 100.5
[2020-11-12 17:48] LABS: Appearance CLEAR (CLEAR); Bilirubin NEGATIVE (NEGATIVE); Blood NEGATIVE Ery/ul (0-5); Epithelial Cells RARE /HPF (FEW); Glucose NEGATIVE (NEGATIVE); Ketones NEGATIVE (NEGATIVE); Leukocyte Esterase SMALL (NEGATIVE); Mucus SLIGHT /HPF (NEGATIVE); Nitrite NEGATIVE (NEGATIVE); Protein,Urine Dip NEGATIVE (Negative); Specific Gravity 1.016 (1.005-1.025); Urobilinogen NEGATIVE mg/dL (0-1)
[2020-11-12 17:53] LABS: ALBUMIN 3.9 g/dL (3.5-5.0); ALKALINE PHOSPHATASE 56 U/L (38-126); AMYLASE 36 U/L (30-110); ANION GAP 10.3 MEQ/L (5-15); BLOOD UREA NITROGEN 13 mg/dL (7-17); CHLORIDE 93 mmol/L (98-107); Calcium 9.2 mg/dL (8.4-10.2); Carbon Dioxide 36 mmol/L (22-30); Creatinine 1 0.75 mg/dL (0.52-1.04); EST GLOMERULAR FILTRATION RATE > 60.0 ML/MIN; Glucose 97 mg/dL (74-106); LIPASE 130 U/L (23-300); SGOT/AST 23 U/L (14-36); SGPT/ALT 22 U/L (0-35); SODIUM 137 mmol/L (137-145); Total Protein 7.7 g/dL (6.3-8.2)
[2020-11-12 18:03] LABS: Potassium 2.8 mmol/L (3.5-5.1)
[2020-11-12] MEDS ORDERED: Klor Con 10 MEQ PO ONE ×2 (18:30→18:31)
[2020-11-12 20:08] VITALS: BP 134/86; PULSE 71
[2020-11-12 21:21] VITALS: O2SAT 100
--- NOTE | 2020-11-13 08:12 | XRAY ---
Indication: Left lower quadrant pain. Colostomy. Multiple contiguous axial images obtained through the abdomen and pelvis using 80 cc Isovue 370 contrast. Comparison: October 09, 2020. Lung bases again demonstrates minimal bilateral dependent atelectasis. Heart is not enlarged. Radiopacity in the stomach presumed ingested medication/bismuth. Noncontrasted bowel loops appear nonobstructed. New left lower quadrant diverting colostomy with minimal subcutaneous and mesenteric fatty stranding presumed postoperative/inflammatory. Rectal stump intact. No free fluid/air. Again appendectomy, cholecystectomy, small left adrenal adenoma, and splenic calcified granulomas. 5 mm left mid renal cortical cyst not seen on previous noncontrast exam. Remaining liver, pancreas, spleen, right adrenal gland, kidneys, ureters, and bladder appear unremarkable. There remains mild aortoiliac calcifications. No AAA or pathologic retroperitoneal lymphadenopathy. Osseous structures intact again with minimal degenerative changes throughout the spine. Impression: 1. New left lower quadrant diverting colostomy. Minimal subcutaneous and mesenteric fatty stranding presumed postoperative/inflammatory. No suspicious fluid/air collection. 2. Incidental left adrenal adenoma, left renal cyst, and splenic calcified granulomas.
== END 2020-11-12 20:05 | disposition home or self-care (01) ==
LOC: ED 17:15
DX: R10.32 Left lower quadrant pain (principal); K94.09 Other complications of colostomy; I10 Essential (primary) hypertension; E11.9 Type 2 diabetes mellitus without complications; Z79.899 Other long term (current) drug therapy
CPT/HCPCS: 36000; 36415; 74177; 80053; 81001; 82150; 83690; 84484; 85025; 96374; 99284; J1885; A9270-GY

== ENCOUNTER 2024-01-16 12:27 | Emergency (ER) | payer OTHER ==
[2024-01-16 12:42] VITALS: RESP 18; TEMP 97.8
[2024-01-16 12:58] LABS: Appearance Clear (Clear); Bacteria None Seen /HPF (None Seen); Bilirubin Negative (Negative); Blood Negative (Negative); Epithelial Cells None Seen /HPF (None Seen); Glucose, Urine Negative (Negative); Hyaline Casts NONE SEEN /LPF (0-2); Ketones Negative (Negative); Leukocyte Esterase Moderate (Negative); Nitrite Negative (Negative); Ph 5.5 (4.6-8.0); Protein,Urine Dip Negative (Negative); RBC 0-2 /HPF (0-5); Urobilinogen 0.2 mg/dL (0.2); WBC 51-100 /HPF (0-5)
[2024-01-16 12:58] LABS: Absolute Neutrophil Ct (ANC) 6.79 x10^3/uL (1.4-6.9); BASOPHIL % 0.3 % (0.0-0.4); Basophil (Absolute #) 0.03 x10^3/uL (0-0.4); Eosinophil % 4.8 % (0.00-5.0); Eosinophil (Absolute #) 0.44 x10^3/uL (0-0.5); Hematocrit 30.5 % (35-47); Hemoglobin 8.8 g/dL (12.0-16.0); IMMATURE GRAN # 0.02 x10^3u/L (0.00-0.03); IMMATURE GRAN % 0.2 % (0.00-0.4); Lymphocytes % 18.4 % (24.0-44.0); Mean Cell Volume 74.2 fL (78-100); Mean Corpuscular Hemoglobin 21.4 pg (26-32); Mean Corpuscular Hgb Concent. 28.9 g/dL (32-36); Monocyte (Absolute #) 0.26 x10^3/uL (0.0-1.3); Monocytes % 2.8 % (0.0-12.0); Neutrophil % 73.5 % (36.0-66.0); Platelet Count 560 x10^3/uL (150-450); Red Blood Count 4.11 x10^6/uL (4.1-5.4); Red Cell Distribution Width 21.4 % (11.5-14.0); White Blood Count 9.2 x10^3/uL (4.0-10.5)
[2024-01-16 12:59] LABS: ADD URINE CULTURE? YES (NO)
[2024-01-16 13:10] LABS: ALBUMIN 3.2 g/dL (3.5-5.0); ANION GAP 9.2 MEQ/L (5-15); BILIRUBIN,TOTAL 0.4 mg/dL (0.2-1.3); Calcium 8.6 mg/dL (8.4-10.2); Creatinine 1 0.81 mg/dL (0.52-1.04); EST GLOMERULAR FILTRATION RATE 84.6 ML/MIN; Potassium 3.2 mmol/L (3.5-5.1); Total Protein 7.1 g/dL (6.3-8.2)
[2024-01-16 13:31] LABS: Slide Review 1 YES
--- NOTE | 2024-01-16 13:33 | ERPHSYRPT ---
- History of Present Illness Time Seen by Provider: 01/16/24 13:29 Source: patient Exam Limitations: no limitations Patient Subjective Stated Complaint: Hyperglycemia- BS 255 Triage Nursing Assessment: Patient ambulated back to ED and transferred self to bed. Patient A+O x3. Patient's skin pink, warm and dry. Patient states her dexcom is giving her a reading of 255. Patient states she was told by her dr that if her BS is higher than 120 she needs to be seen. Patient denies pain or discomfort. Patient's BS noted to be 182. Physician History: Patient states her dexcom is giving her a reading of 255. Patient states she was told by her dr that if her BS is higher than 120 she needs to be seen. Patient denies pain or discomfort. No other symptoms Timing/Duration: today Associated Symptoms: denies symptoms Allergies/Adverse Reactions: codeine [Codeine] Allergy (Mild, Verified 01/16/24 12:34) N&V Penicillins Allergy (Mild, Verified 01/16/24 12:34) Rash Home Medications: ARIPiprazole [Abilify] 10 mg PO DAILY 02/15/12 [History] Albuterol Common Canister [Ventolin Common Canister] 2 puff IH Q4HPRN PRN 02/15/12 [History] Albuterol/Ipratropium 3ml Neb* [DUONEB 0.5-3 MG/3 ml Neb] 3 ml IH Q2H/PRN PRN 02/15/12 [History] Budesonide 0.5 mg/2 ml [Pulmicort 0.5 mg/2 ml Respules] 0.5 mg IH BID 16/09 [History] Fluoxetine HCl [Prozac] 40 mg PO DAILY 02/15/12 [History] Adalimumab [Humira Pen] 45 units SQ WEEKLY 08/11/20 [History] Atorvastatin Calcium 20 mg PO DAILY 08/11/20 [History] Fluticasone/Vilanterol [Breo Ellipta 100-25 Mcg Inhalr] 1 puff IH DAILY 08/11/20 [History] Insulin Glargine,Hum.rec.anlog [Basaglar Kwikpen U-100] 45 unit SQ HS 08/11/20 [History] Insulin Lispro [Admelog] 7 unit SQ BID 08/11/20 [History] Liraglutide [Victoza 2-Levar] 1.8 ml SQ BID 08/11/20 [History] Metformin HCl [Metformin ER Gastric] 500 mg PO BID 08/11/20 [History] Metoprolol Tartrate 50 mg PO BID 08/11/20 [History] Montelukast Sodium 10 mg [Singulair 10 MG] 10 mg PO QHS 08/11/20 [History] Oxybutynin Chloride Xl 5 mg [Ditropan XL 5 MG] 5 mg PO BID 08/11/20 [History] Prednisone 20 mg [Deltasone 20 mg] 40 mg PO DAILY 08/11/20 [History] buPROPion HCL [Bupropion Xl] 150 mg PO DAILY 08/11/20 [History] lisinopriL [Lisinopril] 40 mg PO DAILY 08/11/20 [History] Hx Tetanus, Diphtheria Vaccination/Date Given: No (unknown) Hx Influenza Vaccination/Date Given: Yes Hx Pneumococcal Vaccination/Date Given: No (unknown when) Travel Risk - International Travel Have you traveled outside of the country in past 3 weeks: No - Emerging Infectious Disease Are you exhibiting symptoms associated with any current EIDs: No - Review of Systems Constitutional: No Symptoms Eyes: No Symptoms Ears, Nose, & Throat: No Symptoms Respiratory: No Symptoms Cardiac: No Symptoms Abdominal/Gastrointestinal: No Symptoms Genitourinary Symptoms: No Symptoms Musculoskeletal: No Symptoms Skin: No Symptoms Neurological: No Symptoms Psychological: No Symptoms Endocrine: No Symptoms, Excessive Sweating Immunological/Allergic: No Symptoms - Past Medical History Pertinent Past Medical History: Yes Neurological History: Other ENT History: No Pertinent History Cardiac History: No Pertinent History, Hypertension Respiratory History: Asthma, COPD, Sleep Apnea Endocrine Medical History: Diabetes Type II Musculoskeletal History: No Pertinent History GI Medical History: Crohns Disease History: No Pertinent History Psycho-Social History: Anxiety Female Reproductive Disorders: No Pertinent History Other Medical History: Down syndrome reported - Past Surgical History Past Surgical History: Yes Neuro Surgical History: No Pertinent History Cardiac: No Pertinent History Respiratory: No Pertinent History Gastrointestinal: No Pertinent History, Colon Resection Genitourinary: No Pertinent History Musculoskeletal: Joint Replacement Female Surgical History: Hysterectomy, Section Other Surgical History: right knee replacement. left knee replacement. PICC in rt upper arm. Colostomy Significant Family History: no pertinent family hx - Social History Smoking Status: Former smoker How long have you smoked: 15 years Exposure to second hand smoke: No (wood burner at home) Drug Use: none Patient Lives Alone: No - Nursing Vital Signs Nursing Vital Signs: Initial Vital Signs Temperature 97.8 F 01/16/24 12:36 Pulse Rate 85 01/16/24 12:36 Respiratory Rate 18 01/16/24 12:36 Blood Pressure 153/74 01/16/24 12:36 O2 Sat by Pulse Oximetry 96 01/16/24 12:36 Pain Scale Pain Intensity 0 - Physical Exam General Appearance: no apparent distress, alert Eye Exam: PERRL/EOMI, eyes nml inspection Ears, Nose, Throat Exam: normal ENT inspection, TMs normal, pharynx normal, moist mucous membranes Neck Exam: normal inspection, non-tender, supple, full range of motion Respiratory Exam: normal breath sounds, lungs clear, No respiratory distress Cardiovascular Exam: regular rate/rhythm, normal heart sounds, normal peripheral pulses Gastrointestinal/Abdomen Exam: soft, normal bowel sounds, No tenderness, No mass Back Exam: normal inspection, normal range of motion, No CVA tenderness, No vertebral tenderness Extremity Exam: normal inspection, normal range of motion, pelvis stable Neurologic Exam: alert, oriented x 3, cooperative, normal mood/affect, nml cerebellar function, nml station & gait, sensation nml, No motor deficits Skin Exam: normal color, warm, dry, No rash Lymphatic Exam: No adenopathy SpO2: 96 - Course Nursing assessment & vital signs reviewed: Yes Ordered Tests: Active Orders 24 hr Category Date Time Status POCT Glucose Check STAT Care 01/16/24 12:41 Active CBC W DIFF Stat Lab 01/16/24 12:55 Completed CMP Stat Lab 01/16/24 12:55 Completed CULTURE,URINE Stat Lab 01/16/24 12:45 Received POCT GLUCOSE Stat Lab 01/16/24 12:37 Completed UA W/RFX UR CULTURE Stat Lab 01/16/24 12:45 Completed Medication Summary Discontinued Medications Generic Name Dose Route Start Last Admin Trade Name Freq PRN Reason Stop Dose Admin Cefazolin Sodium 1 g 01/16/24 13:20 Cefazolin Sodium 1 Gm Vial IM 01/16/24 13:21 STAT ONE Lab/Rad Data: Laboratory Result Diagrams 01/16/24 12:55 01/16/24 12:55 Laboratory Results 01/16/24 01/16/24 01/16/24 Range/Units 12:55 12:55 12:45 WBC 9.2 (4.0-10.5) x10^3/uL RBC 4.11 (4.1-5.4) x10^6/uL Hgb 8.8 L (12.0-16.0) g/dL Hct 30.5 L (35-47) % MCV 74.2 L (78-100) fL MCH 21.4 L (26-32) pg MCHC 28.9 L (32-36) g/dL RDW 21.4 H (11.5-14.0) % Plt Count 560 H (150-450) x10^3/uL MPV 8.0 (7.5-11.0) fL Gran % 73.5 H (36.0-66.0) % Immature Gran % (Auto) 0.2 (0.00-0.4) % Nucleat RBC Rel Count 0.0 (0.00-0.1) % Eos # (Auto) 0.44 (0-0.5) x10^3/uL Immature Gran # (Auto) 0.02 (0.00-0.03) x10^3u/L Absolute Lymphs (auto) 1.70 (1.0-4.6) x10^3/uL Absolute Monos (auto) 0.26 (0.0-1.3) x10^3/uL Absolute Nucleated RBC 0.00 (0.00-0.01) x10^3u/L Lymphocytes % 18.4 L (24.0-44.0) % Monocytes % 2.8 (0.0-12.0) % Eosinophils % 4.8 (0.00-5.0) % Basophils % 0.3 (0.0-0.4) % Absolute Granulocytes 6.79 (1.4-6.9) x10^3/uL Basophils # 0.03 (0-0.4) x10^3/uL Sodium 139 (135-145) mmol/L Potassium 3.2 L (3.5-5.1) mmol/L Chloride 109 H (98-107) mmol/L Carbon Dioxide 24 (22-30) mmol/L Anion Gap 9.2 (5-15) MEQ/L BUN 13 (7-17) mg/dL Creatinine 0.81 (0.52-1.04) mg/dL Estimated GFR 84.6 ML/MIN Glucose 210 H (74-106) mg/dL POC Glucometer (74 to 106) mg/dL Calcium 8.6 (8.4-10.2) mg/dL Total Bilirubin 0.40 (0.2-1.3) mg/dL AST 18 (14-36) U/L ALT 15 (0-35) U/L Alkaline Phosphatase 86 (38-126) U/L Serum Total Protein 7.1 (6.3-8.2) g/dL Albumin 3.2 L (3.5-5.0) g/dL Urine Color Yellow (Yellow) Urine Appearance Clear (Clear) Urine pH 5.5 (4.6-8.0) Ur Specific [place] 1.010 (1.005-1.030) Urine Protein Negative (Negative) Urine Glucose (UA) Negative (Negative) mg/dL Urine Ketones Negative (Negative) Urine Blood Negative (Negative) Urine Nitrite Negative (Negative) Urine Bilirubin Negative (Negative) Urine Urobilinogen 0.2 (0.2) mg/dL Ur Leukocyte Esterase Moderate A (Negative) U Hyaline Cast (Auto) NONE SEEN (0-2) /LPF Urine Microscopic RBC 0-2 (0-5) /HPF Urine Microscopic WBC 51-100 A (0-5) /HPF Ur Epithelial Cells None Seen (None Seen) /HPF Urine Bacteria None Seen (None Seen) /HPF Urine Culture Reflexed YES (NO) 01/16/24 Range/Units 12:37 WBC (4.0-10.5) x10^3/uL RBC (4.1-5.4) x10^6/uL Hgb (12.0-16.0) g/dL Hct (35-47) % MCV (78-100) fL MCH (26-32) pg MCHC (32-36) g/dL RDW (11.5-14.0) % Plt Count (150-450) x10^3/uL MPV (7.5-11.0) fL Gran % (36.0-66.0) % Immature Gran % (Auto) (0.00-0.4) % Nucleat RBC Rel Count (0.00-0.1) % Eos # (Auto) (0-0.5) x10^3/uL Immature Gran # (Auto) (0.00-0.03) x10^3u/L Absolute Lymphs (auto) (1.0-4.6) x10^3/uL Absolute Monos (auto) (0.0-1.3) x10^3/uL Absolute Nucleated RBC (0.00-0.01) x10^3u/L Lymphocytes % (24.0-44.0) % Monocytes % (0.0-12.0) % Eosinophils % (0.00-5.0) % Basophils % (0.0-0.4) % Absolute Granulocytes (1.4-6.9) x10^3/uL Basophils # (0-0.4) x10^3/uL Sodium (135-145) mmol/L Potassium (3.5-5.1) mmol/L Chloride (98-107) mmol/L Carbon Dioxide (22-30) mmol/L Anion Gap (5-15) MEQ/L BUN (7-17) mg/dL Creatinine (0.52-1.04) mg/dL Estimated GFR ML/MIN Glucose (74-106) mg/dL POC Glucometer 182 H (74 to 106) mg/dL Calcium (8.4-10.2) mg/dL Total Bilirubin (0.2-1.3) mg/dL AST (14-36) U/L ALT (0-35) U/L Alkaline Phosphatase (38-126) U/L Serum Total Protein (6.3-8.2) g/dL Albumin (3.5-5.0) g/dL Urine Color (Yellow) Urine Appearance (Clear) Urine pH (4.6-8.0) Ur Specific [place] (1.005-1.030) Urine Protein (Negative) Urine Glucose (UA) (Negative) mg/dL Urine Ketones (Negative) Urine Blood (Negative) Urine Nitrite (Negative) Urine Bilirubin (Negative) Urine Urobilinogen (0.2) mg/dL Ur Leukocyte Esterase (Negative) U Hyaline Cast (Auto) (0-2) /LPF Urine Microscopic RBC (0-5) /HPF Urine Microscopic WBC (0-5) /HPF Ur Epithelial Cells (None Seen) /HPF Urine Bacteria (None Seen) /HPF Urine Culture Reflexed (NO) - Progress Progress: improved Counseled pt/family regarding: lab results, diagnosis, need for follow-up Medical Desision Making - Independent Historian Additional History obtained from: Family - Diagnostic Testing Diagnostic test were ordered, analyzed, and reviewed by me: Yes Radiological Interpretation: Interpreted by me, Reviewed by me - Risk of complications Minimal Risk: Minimal risk of morbidity - Departure Departure Disposition: Home Clinical Impression: Hypokalemia due to loss of potassium, UTI (urinary tract infection) due to Enterococcus Hyperglycemia due to type 2 diabetes mellitus Qualifiers: Diabetes mellitus intermediate insulin use: with intermediate use Qualified Code(s): E11.65 - Type 2 diabetes mellitus with hyperglycemia; 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 The patient was counseled regarding Diagnosis,Lab results, Imaging studies, need for follow up and when to return to the Emergency Room. Prescriptions given: Discharge Note I have spoken with the patient and/or caregivers. I have explained the patient's condition, diagnosis and treatment plan based on the information available to me at this time. I have answered the patient's and/or caregiver's questions and addressed any concerns. The patient and/or caregivers have as good understanding of the patient's diagnosis, condition and treatment plan as can be expected at this point. The vital signs have been stable. The patient's condition is stable and appropriate for discharge from the emergency department. The patient will pursue further outpatient evaluation with the primary care physician or other designated or consulting physician as outlined in the franc [employer] instructions. The patient and/or caregivers are agreeable to this plan of care and follow-up instructions have been explained in detail. The patient and/or caregivers have received these instruction. The patient/and or caregivers are aware that any significant change in condition or worsening of symptoms should prompt an immediate return to this or the closest emergency department or call 911. CASANDRA KOENIG was seen on 01/16/24 n the Emergency Room. At that time you were treated for an emergent condition, during your visit Laboratory, Radiology and/or other procedures may have been ordered. It is very important that you follow-up with your Primary Care Physician NO FAMILY DOCTOR within the next 24- 48 hours to review your Emergency Room visit and the final results of testing that was ordered. Some test results such as Urine Cultures, Blood Cultures, and other cultures if ordered will not be finalized for 24-48 hours. If you do not have a Primary Care Provider please call the medical records depa rtment at [phone] to obtain a copy of your results or you may sign into our patient portal to obtain these results by visiting us @ [email or web address] and completing the following steps: 1. Click on the Patient Portal link 2. Click the Patient Self Enrollment Link to complete the enrollment form and entering your 3. Once the enrollment form is completed you will receive an email with a temporary ID and password at the email address you provided. 4. Next choose a user name and password. Your user name must be at least 4 characters long and your password must be at least 4 characters long. 5. Choose a security question from the list and provide your answer to the question. If you already have signed into the Health Portal you may access your Health Care Information 20/04 by the following steps: 1. Login to our website @ [email or web address] 2. Enter your original user name and password. FAQS The [facility] Health Portal is an online tool that contains your Lab Results, Radiology Reports, Visit History, Discharge Instructions and Health Summary Lab and Radiology Results will not be available for 72 hours on the portal. The Portal is a secure site, passwords are encryted and URLs are re-written so they cannot be copied and pasted. You and authorized family members are the only ones who can access your Portal. Also there is a timeout feature that protects your information if you leave the Portal page open. If you have technical difficulty please use the Contact Us link on the page this will allow you to submit any questions you have regarding the Portal or you may contact the Medical Record Department at [phone]. Prescriptions: Ciprofloxacin [Cipro 500 MG] 500 mg PO BIDAC #14 tablet
[2024-01-16] MEDS ORDERED: KEFZOL 1 GM ONE (13:43)
[2024-01-16] MEDS ORDERED: Klor Con ONE (13:43)
[2024-01-16] MEDS: Klor Con PO ONE (13:44)
[2024-01-16] MEDS: KEFZOL 1 GM IM ONE (13:46)
[2024-01-16] MEDS ORDERED: Rocephin 1000 MG INJ ONE (13:49)
[2024-01-16] MEDS ORDERED: XYLOCAINE 1% HCL 20 ML MDV ONE (13:49)
[2024-01-16] MEDS: Rocephin 1000 MG INJ IM ONE (13:49)
[2024-01-16 13:55] VITALS: BP 120/80; PULSE 68; O2SAT 98
== END 2024-01-16 13:58 | disposition home or self-care (01) ==
LOC: ED 12:27
DX: E87.6 Hypokalemia (principal); N39.0 Urinary tract infection, site not specified; B95.2 Enterococcus as the cause of diseases classified elsewhere; E11.65 Type 2 diabetes mellitus with hyperglycemia; I10 Essential (primary) hypertension; Z79.4 Long term (current) use of insulin; Z79.85 Long-term (current) use of injectable non-insulin antidiabetic drugs; Z79.84 Long term (current) use of oral hypoglycemic drugs
CPT/HCPCS: 36415; 80053; 81001; 82947; 85025; 87086; 96372; 99283; J0690; J0696; A9270-GY

== ENCOUNTER 2024-01-26 23:59 | Emergency (ER) | payer OTHER ==
[2024-01-27 00:09] VITALS: TEMP 97.9
[2024-01-27] MEDS ORDERED: TYLENOL 325 MG ONE (00:25)
[2024-01-27] MEDS: TYLENOL 325 MG PO ONE (00:26)
--- NOTE | 2024-01-27 00:30 | ERPHSYRPT ---
- History of Present Illness Time Seen by Provider: 01/27/24 00:10 Source: patient Exam Limitations: no limitations Patient Subjective Stated Complaint: R ankle pain and injury x2 days Triage Nursing Assessment: pt presents to ED via [facility] 1 after walking to the fire station in [place] and wanted an ambulance to take her to hospital, pt alert and oriented x3, skin pwd, pt c/o R ankle pain and injury after twisting ankle 2 days ago, pt has some mild swelling around ankle and pain Physician History: 58-year-old female presents to our ED via EMS for evaluation of right ankle sprain. Patient states she sprained her right ankle 2 days ago. Patient has been self treating with ice. Patient states the right ankle pain has not resolved. Patient walked from her home to the fire department to obtain a ride to our ED. Upon arrival to our ED patient requested Tylenol for ankle pain. No other injuries reported. Right ankle pain described as an ache that is localized. No radiation. Pain worse with weightbearing pain improved with rest. Patient voiced no other complaints or concerns at this time. Portions of this note were created with voice recognition technology. There may be grammatical, spelling, punctuation or sound alike errors Timing/Duration: day(s) Severity: moderate Modifying Factors: Improves With: movement Associated Symptoms: denies symptoms Allergies/Adverse Reactions: codeine [Codeine] Allergy (Mild, Verified 01/27/24 00:01) N&V Penicillins Allergy (Mild, Verified 01/27/24 00:01) Rash Home Medications: ARIPiprazole [Abilify] 10 mg PO DAILY 02/15/12 [History] Albuterol Common Canister [Ventolin Common Canister] 2 puff IH Q4HPRN PRN 02/15/12 [History] Albuterol/Ipratropium 3ml Neb* [DUONEB 0.5-3 MG/3 ml Neb] 3 ml IH Q2H/PRN PRN 02/15/12 [History] Budesonide 0.5 mg/2 ml [Pulmicort 0.5 mg/2 ml Respules] 0.5 mg IH BID 02/15/12 [History] Fluoxetine HCl [Prozac] 40 mg PO DAILY 02/15/12 [History] Adalimumab [Humira Pen] 45 units SQ WEEKLY 08/11/20 [History] Atorvastatin Calcium 20 mg PO DAILY 08/11/20 [History] Fluticasone/Vilanterol [Breo Ellipta 100-25 Mcg Inhalr] 1 puff IH DAILY 08/11/20 [History] Insulin Glargine,Hum.rec.anlog [Basaglar Kwikpen U-100] 45 unit SQ HS 08/11/20 [History] Insulin Lispro [Admelog] 7 unit SQ BID 08/11/20 [History] Liraglutide [Victoza 2-Levar] 1.8 ml SQ BID 08/11/20 [History] Metformin HCl [Metformin ER Gastric] 500 mg PO BID 08/11/20 [History] Metoprolol Tartrate 50 mg PO BID 08/11/20 [History] Montelukast Sodium 10 mg [Singulair 10 MG] 10 mg PO QHS 08/11/20 [History] Oxybutynin Chloride Xl 5 mg [Ditropan XL 5 MG] 5 mg PO BID 08/11/20 [History] Prednisone 20 mg [Deltasone 20 mg] 40 mg PO DAILY 08/11/20 [History] buPROPion HCL [Bupropion Xl] 150 mg PO DAILY 08/11/20 [History] lisinopriL [Lisinopril] 40 mg PO DAILY 08/11/20 [History] Hx Tetanus, Diphtheria Vaccination/Date Given: No (unknown) Hx Influenza Vaccination/Date Given: Yes Hx Pneumococcal Vaccination/Date Given: No (unknown when) Immunizations Up to Date: No Travel Risk - International Travel Have you traveled outside of the country in past 3 weeks: No - Emerging Infectious Disease Are you exhibiting symptoms associated with any current EIDs: No - Review of Systems Constitutional: No Symptoms, No Fever, No Chills Eyes: No Symptoms Ears, Nose, & Throat: No Symptoms Respiratory: No Symptoms, No Cough, No Dyspnea Cardiac: No Symptoms, No Chest Pain, No Edema, No Syncope Abdominal/Gastrointestinal: No Symptoms, No Abdominal Pain, No Nausea, No Vomiting, No Diarrhea Genitourinary Symptoms: No Symptoms, No Dysuria Musculoskeletal: No Symptoms, No Back Pain, No Neck Pain Skin: No Symptoms, No Rash Neurological: No Symptoms, No Dizziness, No Focal Weakness, No Sensory Changes Psychological: No Symptoms Endocrine: No Symptoms Hematologic/Lymphatic: No Symptoms Immunological/Allergic: No Symptoms All Other Systems: Reviewed and Negative - Past Medical History Pertinent Past Medical History: Yes Neurological History: Other ENT History: No Pertinent History Cardiac History: No Pertinent History, Hypertension Respiratory History: Asthma, COPD, Sleep Apnea Endocrine Medical History: Diabetes Type II Musculoskeletal History: No Pertinent History GI Medical History: Crohns Disease History: No Pertinent History Psycho-Social History: Anxiety Female Reproductive Disorders: No Pertinent History Other Medical History: Down syndrome reported - Past Surgical History Past Surgical History: Yes Neuro Surgical History: No Pertinent History Cardiac: No Pertinent History Respiratory: No Pertinent History Gastrointestinal: Colon Resection Genitourinary: No Pertinent History Musculoskeletal: Joint Replacement Female Surgical History: Hysterectomy, Section Other Surgical History: right knee replacement. left knee replacement Significant Family History: no pertinent family hx - Social History Smoking Status: Current every day smoker How long have you smoked: 15 years Exposure to second hand smoke: No (wood burner at home) Drug Use: none Patient Lives Alone: No - Nursing Vital Signs Nursing Vital Signs: Initial Vital Signs Pulse Rate 69 01/27/24 00:00 Respiratory Rate 20 01/27/24 00:00 Blood Pressure 155/72 01/27/24 00:00 O2 Sat by Pulse Oximetry 99 01/27/24 00:00 Pain Scale Pain Intensity 8 - Physical Exam General Appearance: no apparent distress, alert Eye Exam: PERRL/EOMI, eyes nml inspection Ears, Nose, Throat Exam: normal ENT inspection, moist mucous membranes Neck Exam: normal inspection, non-tender, supple, full range of motion Respiratory Exam: normal breath sounds, lungs clear, airway intact, No respiratory distress Cardiovascular Exam: regular rate/rhythm, normal heart sounds, normal peripheral pulses Gastrointestinal/Abdomen Exam: soft, normal bowel sounds, No tenderness, No mass Back Exam: normal inspection, normal range of motion, No CVA tenderness, No vertebral tenderness Extremity Exam: normal inspection, normal range of motion, pelvis stable Neurologic Exam: alert, oriented x 3, cooperative, normal mood/affect, sensation nml, No motor deficits Skin Exam: normal color, warm, dry, No rash Lymphatic Exam: No adenopathy SpO2 Interpretation: normal SpO2: 99 O2 Delivery: Room Air - Course Nursing assessment & vital signs reviewed: Yes - Radiology Exams Ankle X-ray Interpretation: Teleradiologist Report (Moderate Heidy changes at the right ankle joint no acute fractures) Ordered Tests: Active Orders 24 hr Category Date Time Status ANKLE (3 VIEWS) Stat Exams 01/27/24 00:02 Completed Medication Summary Discontinued Medications Generic Name Dose Route Start Last Admin Trade Name Star PRN Reason Stop Dose Admin Acetaminophen 975 mg 01/27/24 00:21 01/27/24 00:26 Acetaminophen 325 Mg Tablet PO 01/27/24 00:22 975 mg STAT ONE Administration Acetaminophen Confirm 01/27/24 00:25 Acetaminophen 325 Mg Tablet Administered 01/27/24 00:26 Dose 975 mg .ROUTE .STK-MED ONE - Progress Progress: improved Progress Note: 58-year-old female presents to our ED via EMS for evaluation of right ankle pain. Patient injured her ankle 2 days ago. Physical exam reveals some swelling at the lateral aspect of the right ankle. The involved ankle/right lower extremities neurovascular tact distally compartments are soft cap refill less than 2 seconds. X-ray negative for acute pathology. Osteopenia arthritic changes observed. Slava wrap applied. Patient received Tylenol for pain control per her request. Orthopedic referral provided. Patient states he is ready for discharge. She voices no other complaints or concerns at this time. Portions of this note were created with voice recognition technology. There may be grammatical, spelling, punctuation or sound alike errors Complexity problem addressed is moderate acute complicated No critical care time Complaints of data reviewed and analyzed is moderate. Dr. Milligan independently reviewed the x-ray of the involved ankle. Confirmatory formal read obtained. Risk of complication and or risk of morbidity/mortality of patient management is low Vital stable. Time spent to discharge patient is approximately 15 minutes. Plan of care established for shared decision making. No social determinants of health present impede follow-up. Portions of this note were created with voice recognition technology. There may be grammatical, spelling, punctuation or sound alike errors 01/27/24 01:18 Counseled pt/family regarding: need for follow-up, rad results - Departure Departure Disposition: Home Clinical Impression: Arthritis, Ankle sprain Condition: Stable Critical Care Time: No Referrals: DOCTOR,NO FAMILY [Primary Care Provider] - Follow up/PCP as directed NYLA HUMPHRIES MD [ACTIVE STAFF] - Follow up/PCP as directed Additional Instructions: Discharge/Care Plan CASANDRA KOENIG was seen on 01/27/24 in the Emergency Room. The patient was counseled regarding Diagnosis,Lab results, Imaging studies, need for follow up and when to return to the Emergency Room. Prescriptions given: Discharge Note I have spoken with the patient and/or caregivers. I have explained the patient's condition, diagnosis and treatment plan based on the information available to me at this time. I have answered the patient's and/or caregiver's questions and addressed any concerns. The patient and/or caregivers have as good understanding of the patient's diagnosis, condition and treatment plan as can be expected at this point. The vital signs have been stable. The patient's condition is stable and appropriate for discharge from the emergency department. The patient will pursue further outpatient evaluation with the primary care physician or other designated or consulting physician as outlined in the discharge instructions. The patient and/or caregivers are agreeable to this plan of care and follow-up instructions have been explained in detail. The patient and/or caregivers have received these instruction. The patient/and or caregivers are aware that any significant change in condition or worsening of symptoms should prompt an immediate return to this or the closest emergency department or call 911. Outpatient Orders: Ortho Referral Time Frame: 1 Day, Facility: [facility], Location : [facility]
--- NOTE | 2024-01-27 00:52 | XRAY ---
CLINICAL HISTORY: pain COMPARISON: None. TECHNIQUE: X-ray examination of the right ankle joint is performed in AP, lateral, and oblique 3 views. FINDINGS: Asymmetrically reduced ankle joint space with marginal osteophytes suggestive of moderate osteoarthritic changes. Possible loose body shadows are seen inferior to the medial malleolus of the tibia bone. Large calcaneal spurs are seen. Mild to moderate osteoarthritic changes at multiple intertarsal joints. No obvious/definite acute bony abnormality. Osteopenic bones. Mild soft tissue swelling. IMPRESSION: Moderate osteoarthritic changes at the right ankle joint. No acute abnormality. DISCLAIMER:A subtle bone abnormality or fracture may not be readily apparent on x-rays, thus clinical correlation and further imaging including follow up CT, MRI, or follow up x-rays are advised as needed. Electronically Signed by: Cherelle Turner MD. (01/27/2024 00:48:40 EDT)
[2024-01-27 01:09] VITALS: BP 141/87; PULSE 65; RESP 17
[2024-01-27 01:16] VITALS: O2SAT 99
== END 2024-01-27 01:33 | disposition home or self-care (01) ==
LOC: ED 23:59
DX: S93.401A Sprain of unspecified ligament of right ankle, initial encounter (principal); M19.071 Primary osteoarthritis, right ankle and foot; I10 Essential (primary) hypertension; E11.9 Type 2 diabetes mellitus without complications; Z79.4 Long term (current) use of insulin; Z79.85 Long-term (current) use of injectable non-insulin antidiabetic drugs; Z79.84 Long term (current) use of oral hypoglycemic drugs; Z79.899 Other long term (current) drug therapy; Z72.0 Tobacco use
CPT/HCPCS: 73610; 99283; A9270-GY

== ENCOUNTER 2024-02-01 19:17 | Observation (INO) | payer OTHER ==
--- NOTE | 2024-02-01 19:21 | ERPHSYRPT ---
- History of Present Illness Time Seen by Provider: 02/01/24 19:21 Historian: patient Exam Limitations: no limitations Physician History: This is a morbidly obese 58-year-old white female patient who has mild mental deficits and presents with a history of multiple episodes of nausea vomiting and diarrhea that began at 1030 this morning. She states her abdominal pain at this time is mild and diffuse. She states she cannot hold any fluids down. She has not been on any antibiotics recently. She does have a history of Crohn's disease. He is a daily smoker of tobacco cigarettes. Patient denies chest pain at this time. She denies shortness of breath. Patient does have a history of insulin-dependent diabetes, COPD, hyperlipidemia, hypertension and anxiety. Timing/Duration: today Quality: aching Abdominal Pain Onset Location: generalized abdomen Severity of Pain-Max: mild Severity of Pain-Current: none Modifying Factors: Improves With: vomiting Associated Symptoms: diarrhea, loss of appetite, nausea, vomiting, weakness Previous symptoms: no prior history, no recent treatment Allergies/Adverse Reactions: codeine [Codeine] Allergy (Mild, Verified 02/01/24 19:32) N&V Penicillins Allergy (Mild, Verified 02/01/24 19:32) Rash Home Medications: ARIPiprazole [Abilify] 5 mg PO DAILY 02/15/12 [History] Albuterol Common Canister [Ventolin Common Canister] 2 puff IH Q4HPRN PRN 02/15/12 [History] Fluoxetine HCl [Prozac] 40 mg PO DAILY 02/15/12 [History] Atorvastatin Calcium 20 mg PO DAILY 08/11/20 [History] Metformin HCl [Metformin ER Gastric] 500 mg PO BID 08/11/20 [History] Montelukast Sodium 10 mg [Singulair 10 MG] 10 mg PO QHS 08/11/20 [History] Oxybutynin Chloride Xl 5 mg [Ditropan XL 5 MG] 5 mg PO BID 08/11/20 [History] buPROPion HCL [Bupropion Xl] 150 mg PO DAILY 08/11/20 [History] lisinopriL [Lisinopril] 40 mg PO DAILY 08/11/20 [History] Insulin Lispro [Insulin Lispro Kwikpen U-100] 10 unit SQ TIDWMEALS 05/06/24 [History] Hx Tetanus, Diphtheria Vaccination/Date Given: No (unknown) Hx Influenza Vaccination/Date Given: Yes Hx Pneumococcal Vaccination/Date Given: No (unknown when) Travel Risk - International Travel Have you traveled outside of the country in past 3 weeks: No - Emerging Infectious Disease Are you exhibiting symptoms associated with any current EIDs: Yes Symptoms: Diarrhea, Vomitting - Review of Systems Constitutional: Weakness Eyes: No Symptoms Ears, Nose, & Throat: No Symptoms Respiratory: No Symptoms Cardiac: No Symptoms Abdominal/Gastrointestinal: Nausea, Vomiting, Diarrhea, Appetite Changes Genitourinary Symptoms: No Symptoms Musculoskeletal: No Symptoms Skin: No Symptoms Neurological: No Symptoms Psychological: No Symptoms Endocrine: No Symptoms Hematologic/Lymphatic: No Symptoms Immunological/Allergic: No Symptoms All Other Systems: Reviewed and Negative - Past Medical History Pertinent Past Medical History: Yes Neurological History: Other ENT History: No Pertinent History Cardiac History: No Pertinent History, Hypertension Respiratory History: Asthma, COPD, Sleep Apnea Endocrine Medical History: Diabetes Type II Musculoskeletal History: No Pertinent History GI Medical History: Crohns Disease History: No Pertinent History Psycho-Social History: Anxiety Female Reproductive Disorders: No Pertinent History Other Medical History: Down syndrome reported - Past Surgical History Past Surgical History: Yes Neuro Surgical History: No Pertinent History Cardiac: No Pertinent History Respiratory: No Pertinent History Gastrointestinal: Colon Resection Genitourinary: No Pertinent History Musculoskeletal: Joint Replacement Female Surgical History: Hysterectomy, Section Other Surgical History: right knee replacement. left knee replacement Significant Family History: no pertinent family hx - Social History Smoking Status: Current every day smoker How long have you smoked: 15 years Exposure to second hand smoke: No (wood burner at home) Drug Use: none Patient Lives Alone: No - Nursing Vital Signs Nursing Vital Signs: Initial Vital Signs Temperature 98.4 F 02/01/24 19:23 Pulse Rate 72 02/01/24 19:23 Respiratory Rate 20 02/01/24 19:23 Blood Pressure 157/84 02/01/24 19:23 O2 Sat by Pulse Oximetry 96 02/01/24 19:23 Pain Scale Pain Intensity 0 - Physical Exam General Appearance: mild distress, alert, anxiety, obese Eye Exam: PERRL/EOMI, eyes nml inspection Ears, Nose, Throat Exam: moist mucous membranes, other Neck Exam: normal inspection, non-tender, supple, full range of motion Respiratory Exam: normal breath sounds, lungs clear, airway intact, No chest tenderness, No respiratory distress Cardiovascular Exam: regular rate/rhythm, normal heart sounds, normal peripheral pulses Gastrointestinal/Abdomen Exam: soft, normal bowel sounds, tenderness (Mild diffuse to palpation), other (Patient does have a history of Crohn disease), No guarding Pelvic Exam: not done Rectal Exam: not done Back Exam: normal inspection, normal range of motion, No CVA tenderness, No vertebral tenderness Extremity Exam: normal inspection, normal range of motion, pelvis stable Neurologic Exam: alert, oriented x 3, 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, 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, nml cerebellar function, nml station & gait, sensation nml Skin Exam: normal color, warm, dry Lymphatic Exam: No adenopathy SpO2 Interpretation: normal O2 Delivery: Room Air - Course Nursing assessment & vital signs reviewed: Yes Ordered Tests: Active Orders 24 hr Category Date Time Status IV Insertion STAT Care 02/01/24 19:31 Active ABDOMEN AND PELVIS W/0 CONTRAS [CT] Stat Exams 02/01/24 19:32 Taken AMYLASE Stat Lab 02/01/24 19:30 Completed CBC W DIFF Stat Lab 02/01/24 19:30 Completed CMP Stat Lab 02/01/24 19:30 Completed CULTURE,URINE Stat Lab 02/01/24 22:27 Received LIPASE Stat Lab 02/01/24 19:30 Completed UA W/RFX UR CULTURE Stat Lab 02/01/24 22:27 Completed Medication Summary Generic Name Dose Route Start Last Admin Trade Name Freq PRN Reason Stop Dose Admin Levofloxacin/Dextrose 500 mg in 100 mls @ 100 mls/hr 02/01/24 22:53 Levofloxacin 500mg/100ml D5w IV 02/01/24 23:52 STAT STA Metronidazole 500 mg in 100 mls @ 200 mls/hr 02/01/24 22:53 02/01/24 23:01 Flagyl 500 Mg Ivpb IV 02/01/24 23:22 200 mls/hr STAT STA 200 mls/hr Administration Sodium Chloride 1,000 mls @ 150 mls/hr 02/01/24 23:00 02/01/24 23:01 Sodium Chloride 0.9% 1000 Ml IV 03/02/24 22:59 150 mls/hr .[id number] RUSSELL Administration Discontinued Medications Generic Name Dose Route Start Last Admin Trade Name Star PRN Reason Stop Dose Admin Sodium Chloride 1,000 mls @ 999 mls/hr 02/01/24 19:31 02/01/24 20:47 Sodium Chloride 0.9% 1000 Ml IV 02/01/24 20:31 Infused .Q1H1M STA Infusion Sodium Chloride Confirm 02/01/24 19:42 Sodium Chloride 0.9% 1000 Ml Administered 02/01/24 19:43 Dose 1,000 mls @ ud .ROUTE .STK-MED ONE Metronidazole Confirm 02/01/24 22:56 Flagyl 500 Mg Ivpb Administered 02/01/24 22:57 Dose 500 mg in 100 mls @ ud IV .STK-MED ONE Ondansetron HCl 4 mg 02/01/24 19:31 02/01/24 19:47 Ondansetron Hcl 4 Mg/2 Ml Vial IV 02/01/24 19:32 4 mg STAT ONE Administration Ondansetron HCl Confirm 02/01/24 19:41 Ondansetron Hcl 4 Mg/2 Ml Vial Administered 02/01/24 19:42 Dose 4 mg .ROUTE .STK-MED ONE Pantoprazole Sodium 40 mg 02/01/24 19:31 02/01/24 19:47 Pantoprazole 40 Mg Vial IV 02/01/24 19:32 40 mg STAT ONE Administration Pantoprazole Sodium Confirm 02/01/24 19:41 Pantoprazole 40 Mg Vial Administered 02/01/24 19:42 Dose 40 mg IV .STK-MED ONE Lab/Rad Data: Laboratory Result Diagrams 02/01/24 19:30 02/01/24 19:30 Laboratory Results 02/01/24 02/01/24 02/01/24 Range/Units 22:27 19:35 19:30 WBC (4.0-10.5) x10^3/uL RBC (4.1-5.4) x10^6/uL Hgb (12.0-16.0) g/dL Hct (35-47) % MCV (78-100) fL MCH (26-32) pg MCHC (32-36) g/dL RDW (11.5-14.0) % Plt Count (150-450) x10^3/uL MPV (7.5-11.0) fL Gran % (36.0-66.0) % Immature Gran % (Auto) (0.00-0.4) % Nucleat RBC Rel Count (0.00-0.1) % Eos # (Auto) (0-0.5) x10^3/uL Immature Gran # (Auto) (0.00-0.03) x10^3u/L Absolute Lymphs (auto) (1.0-4.6) x10^3/uL Absolute Monos (auto) (0.0-1.3) x10^3/uL Absolute Nucleated RBC (0.00-0.01) x10^3u/L Lymphocytes % (24.0-44.0) % Monocytes % (0.0-12.0) % Eosinophils % (0.00-5.0) % Basophils % (0.0-0.4) % Absolute Granulocytes (1.4-6.9) x10^3/uL Basophils # (0-0.4) x10^3/uL Sodium 140 (135-145) mmol/L Potassium 3.8 (3.5-5.1) mmol/L Chloride 108 H (98-107) mmol/L Carbon Dioxide 25 (22-30) mmol/L Anion Gap 9.6 (5-15) MEQ/L BUN 21 H (7-17) mg/dL Creatinine 0.87 (0.52-1.04) mg/dL Estimated GFR 77.7 ML/MIN Glucose 113 H (74-106) mg/dL Calcium 8.4 (8.4-10.2) mg/dL Total Bilirubin 0.40 (0.2-1.3) mg/dL AST 16 (14-36) U/L ALT 14 (0-35) U/L Alkaline Phosphatase 83 (38-126) U/L Serum Total Protein 7.0 (6.3-8.2) g/dL Albumin 3.3 L (3.5-5.0) g/dL Amylase 40 (30-110) U/L Lipase 91 (23-300) U/L Urine Color Yellow (Yellow) Urine Appearance Clear (Clear) Urine pH 5.5 (4.6-8.0) Ur Specific [place] >=1.030 A (1.005-1.030) Urine Protein Trace A (Negative) Urine Glucose (UA) Negative (Negative) mg/dL Urine Ketones Negative (Negative) Urine Blood Negative (Negative) Urine Nitrite Negative (Negative) Urine Bilirubin Negative (Negative) Urine Urobilinogen 1.0 A (0.2) mg/dL Ur Leukocyte Esterase Moderate A (Negative) U Hyaline Cast (Auto) NONE SEEN (0-2) /LPF Urine Microscopic RBC 0-2 (0-5) /HPF Urine Microscopic WBC >100 A (0-5) /HPF Ur Epithelial Cells None Seen (None Seen) /HPF Urine Bacteria None Seen (None Seen) /HPF Urine Culture Reflexed YES (NO) Influenza Type A Ag NEGATIVE (NEGATIVE) Influenza Type B Ag NEGATIVE (NEGATIVE) RSV (PCR) NEGATIVE (NEGATIVE) SARS-CoV-2 (PCR) NEGATIVE (NEGATIVE) 02/01/24 Range/Units 19:30 WBC 12.3 H (4.0-10.5) x10^3/uL RBC 4.01 L (4.1-5.4) x10^6/uL Hgb 8.7 L (12.0-16.0) g/dL Hct 29.2 L (35-47) % MCV 72.8 L (78-100) fL MCH 21.7 L (26-32) pg MCHC 29.8 L (32-36) g/dL RDW 21.8 H (11.5-14.0) % Plt Count 559 H (150-450) x10^3/uL MPV 8.6 (7.5-11.0) fL Gran % 59.1 (36.0-66.0) % Immature Gran % (Auto) 0.2 (0.00-0.4) % Nucleat RBC Rel Count 0.0 (0.00-0.1) % Eos # (Auto) 0.35 (0-0.5) x10^3/uL Immature Gran # (Auto) 0.03 (0.00-0.03) x10^3u/L Absolute Lymphs (auto) 3.70 (1.0-4.6) x10^3/uL Absolute Monos (auto) 0.88 (0.0-1.3) x10^3/uL Absolute Nucleated RBC 0.00 (0.00-0.01) x10^3u/L Lymphocytes % 30.1 (24.0-44.0) % Monocytes % 7.2 (0.0-12.0) % Eosinophils % 2.9 (0.00-5.0) % Basophils % 0.5 (0.0-0.4) % Absolute Granulocytes 7.26 H (1.4-6.9) x10^3/uL Basophils # 0.06 (0-0.4) x10^3/uL Sodium (135-145) mmol/L Potassium (3.5-5.1) mmol/L Chloride (98-107) mmol/L Carbon Dioxide (22-30) mmol/L Anion Gap (5-15) MEQ/L BUN (7-17) mg/dL Creatinine (0.52-1.04) mg/dL Estimated GFR ML/MIN Glucose (74-106) mg/dL Calcium (8.4-10.2) mg/dL Total Bilirubin (0.2-1.3) mg/dL AST (14-36) U/L ALT (0-35) U/L Alkaline Phosphatase (38-126) U/L Serum Total Protein (6.3-8.2) g/dL Albumin (3.5-5.0) g/dL Amylase (30-110) U/L Lipase (23-300) U/L Urine Color (Yellow) Urine Appearance (Clear) Urine pH (4.6-8.0) Ur Specific [place] (1.005-1.030) Urine Protein (Negative) Urine Glucose (UA) (Negative) mg/dL Urine Ketones (Negative) Urine Blood (Negative) Urine Nitrite (Negative) Urine Bilirubin (Negative) Urine Urobilinogen (0.2) mg/dL Ur Leukocyte Esterase (Negative) U Hyaline Cast (Auto) (0-2) /LPF Urine Microscopic RBC (0-5) /HPF Urine Microscopic WBC (0-5) /HPF Ur Epithelial Cells (None Seen) /HPF Urine Bacteria (None Seen) /HPF Urine Culture Reflexed (NO) Influenza Type A Ag (NEGATIVE) Influenza Type B Ag (NEGATIVE) RSV (PCR) (NEGATIVE) SARS-CoV-2 (PCR) (NEGATIVE) - Progress Progress: improved, re-examined Progress Note: 02/01/24 19:58 My medical decision making and the assignment of moderate complexity to this patient's medical issue is based on review the patient's past medical history, review of the patient's medication list, review the patient drug allergy list, history present illness and physical findings on examination. This patient's workup includes placement of intravenous line, infusion of normal saline solution, infusion of 4 mg intravenous Zofran, infusion of 40 mg intravenous Protonix, CBC, CMP, amylase, lipase, urinalysis, viral swabs, CT scan of the abdomen pelvis without contrast. Differential diagnosis includes viral illness, Crohn's exacerbation, colitis, diverticulitis, bowel obstruction, pancreatitis, urinary tract infection, dehyd ration, DKA 02/01/24 22:[address] scan of the M pelvis without contrast was compared to similar study dated 11/12/2020. There is new mild diffuse colonic bowel wall thickening with stranding. This is favoring colitis. There is no complications present. Also proximal intraluminal narrowing with more proximal colonic distention up to 5 cm? Partial obstruction. 02/01/24 22:56 I interpreted the patient's laboratory data results. This patient has leukocytosis, she has a significant urinary tract infection, she also has chronic stable anemia when compared to her most recent labs. 02/01/24 23:13 I did speak briefly with Dr. Odom, as he was heading to a [facility]. I briefly discussed the patient's diagnoses including leukocytosis, colitis and urinary tract infection. I was only able to provide him with that brief history and diagnosis. He was okay with us placing this patient in observation this patient. Counseled pt/family regarding: lab results, diagnosis, need for follow-up, rad results Medical Desision Making - Diagnostic Testing Diagnostic test were ordered, analyzed, and reviewed by me: Yes Radiological Interpretation: Interpreted by me - Risk of complications The pt has a high risk of morbidity or mortality based on: Decision regarding hospitilization or escalation of hosp level of care - Departure Departure Disposition: Observation Clinical Impression: Leukocytosis, Colitis, UTI (urinary tract infection), Vomiting and diarrhea Condition: Stable Critical Care Time: No Referrals: DOCTOR,NO FAMILY [Primary Care Provider] - Follow up/PCP as directed
[2024-02-01] MEDS ORDERED: PROTONIX 40 MG IV IV ONE (19:41)
[2024-02-01] MEDS ORDERED: Zofran 4 MG/2 ML VIAL ONE (19:41)
[2024-02-01] MEDS ORDERED: Sodium Chloride 0.9% 1000 ML 1,000 ML ONE (19:42)
[2024-02-01 19:44] LABS: Absolute Neutrophil Ct (ANC) 7.26 x10^3/uL (1.4-6.9); BASOPHIL % 0.5 % (0.0-0.4); Basophil (Absolute #) 0.06 x10^3/uL (0-0.4); Eosinophil % 2.9 % (0.00-5.0); Eosinophil (Absolute #) 0.35 x10^3/uL (0-0.5); Hematocrit 29.2 % (35-47); Hemoglobin 8.7 g/dL (12.0-16.0); IMMATURE GRAN # 0.03 x10^3u/L (0.00-0.03); IMMATURE GRAN % 0.2 % (0.00-0.4); Lymphocytes % 30.1 % (24.0-44.0); Mean Cell Volume 72.8 fL (78-100); Mean Corpuscular Hemoglobin 21.7 pg (26-32); Mean Corpuscular Hgb Concent. 29.8 g/dL (32-36); Mean Platelet Volume 8.6 fL (7.5-11.0); Monocyte (Absolute #) 0.88 x10^3/uL (0.0-1.3); Monocytes % 7.2 % (0.0-12.0); Neutrophil % 59.1 % (36.0-66.0); Platelet Count 559 x10^3/uL (150-450); Red Blood Count 4.01 x10^6/uL (4.1-5.4); Red Cell Distribution Width 21.8 % (11.5-14.0); White Blood Count 12.3 x10^3/uL (4.0-10.5)
[2024-02-01] MEDS: Sodium Chloride 0.9% 1000 ML 1,000 ML IV STA (19:46)
[2024-02-01] MEDS: PROTONIX 40 MG IV IV ONE (19:47)
[2024-02-01] MEDS: Zofran 4 MG/2 ML VIAL IV ONE (19:47)
[2024-02-01 19:58] LABS: ALBUMIN 3.3 g/dL (3.5-5.0); ANION GAP 9.6 MEQ/L (5-15); BILIRUBIN,TOTAL 0.4 mg/dL (0.2-1.3); Calcium 8.4 mg/dL (8.4-10.2); Creatinine 1 0.87 mg/dL (0.52-1.04); EST GLOMERULAR FILTRATION RATE 77.7 ML/MIN; Potassium 3.8 mmol/L (3.5-5.1)
[2024-02-01 20:22] LABS: INFLUENZA A NEGATIVE (NEGATIVE); INFLUENZA B NEGATIVE (NEGATIVE); RESPIRATORY SYNCTIAL VIRUS NEGATIVE (NEGATIVE); SARS-CoV-2 Xpert Express NEGATIVE (NEGATIVE)
[2024-02-01 22:36] LABS: Appearance Clear (Clear); Bacteria None Seen /HPF (None Seen); Bilirubin Negative (Negative); Blood Negative (Negative); Epithelial Cells None Seen /HPF (None Seen); Glucose, Urine Negative (Negative); Hyaline Casts NONE SEEN /LPF (0-2); Ketones Negative (Negative); Leukocyte Esterase Moderate (Negative); Nitrite Negative (Negative); Ph 5.5 (4.6-8.0); Protein,Urine Dip Trace (Negative); RBC 0-2 /HPF (0-5); Specific Gravity >=1.030 (1.005-1.030); WBC >100 /HPF (0-5)
[2024-02-01 22:39] LABS: ADD URINE CULTURE? YES (NO)
[2024-02-01] MEDS ORDERED: FLAGYL 500 MG IVPB 500 MG/100 ML BAG IV ONE (22:56)
[2024-02-01] MEDS: FLAGYL 500 MG IVPB 500 MG/100 ML BAG IV STA (23:01)
[2024-02-01] MEDS: Sodium Chloride 0.9% 1000 ML 1,000 ML IV SCH (23:01)
[2024-02-01] MEDS ORDERED: Levofloxacin 500MG/100ML D5W 500 MG/100 ML BAG IV ONE (23:55)
[2024-02-01] MEDS: Levofloxacin 500MG/100ML D5W 500 MG/100 ML BAG IV STA (23:56)
[2024-02-02] MEDS ORDERED: HUMULIN R SQ PRN (02:02)
[2024-02-02] MEDS: FLAGYL 500 MG IVPB 500 MG/100 ML BAG IV SCH ×2 (02:20→05:42)
[2024-02-02] MEDS ORDERED: VENTOLIN COMMON CANISTER IH PRN (02:38)
[2024-02-02] MEDS ORDERED: HUMALOG SQ PRN (02:41)
--- NOTE | 2024-02-02 02:56 | PCM.HP ---
History of Present Illness - Chief Complaint Chief Complaint: Colitis Date: 02/01/24 History of Present Illness: is a 58 year old female patient who has a history of Crohns disease with bowel resection and subsequent reanastamosis, and mild mental deficits and presents with a history of multiple episodes of nausea vomiting and diarrhea that began at 10:30 on the morning of presentation. She had abdominal pain which was mild and diffuse, and nausea with vomiting. She states she cannot hold any fluids down. Reported loose stool prior to presentation. She has not been on any antibiotics recently. Patient denies chest pain at this time. She denies shortness of breath. Patient does have a history of insulin- dependent diabetes, COPD, hyperlipidemia, hypertension and anxiety. In the ED, the patient was noted to have a possible early partial bowel obstruction, colitis and a UTI, so antibiotics were initiated. - Review of Systems Constitutional: No Symptoms Eyes: No Symptoms Ears, Nose, & Throat: No Symptoms Respiratory: No Symptoms Cardiac: No Symptoms Abdominal/Gastrointestinal: Abdominal Pain, Nausea, Diarrhea Genitourinary Symptoms: No Symptoms Musculoskeletal: No Symptoms Skin: No Symptoms Neurological: No Symptoms Psychological: No Symptoms Endocrine: No Symptoms Hematologic/Lymphatic: No Symptoms Immunological/Allergic: No Symptoms All Other Systems: Reviewed and Negative Medications & Allergies Home Medications: Home Medication List ARIPiprazole [Abilify] 5 mg PO DAILY 02/15/12 [History Confirmed 02/01/24] Albuterol Common Canister [Ventolin Common Canister] 2 puff IH [id number] PRN 02/15/12 [History Confirmed 02/01/24] Fluoxetine HCl [Prozac] 40 mg PO DAILY 02/15/12 [History Confirmed 02/01/24] Atorvastatin Calcium 20 mg PO DAILY 08/11/20 [History Confirmed 02/01/24] Metformin HCl [Metformin ER Gastric] 500 mg PO BID 08/11/20 [History Confirmed 02/01/24] Montelukast Sodium 10 mg [Singulair 10 MG] 10 mg PO QHS 08/11/20 [History Confirmed 02/01/24] Oxybutynin Chloride Xl 5 mg [Ditropan XL 5 MG] 5 mg PO BID 08/11/20 [History Confirmed 02/01/24] buPROPion HCL [Bupropion Xl] 150 mg PO DAILY 08/11/20 [History Confirmed 02/01/24] lisinopriL [Lisinopril] 40 mg PO DAILY 08/11/20 [History Confirmed 02/01/24] Insulin Lispro [Insulin Lispro Kwikpen U-100] 10 unit SQ TIDWMEALS 02/01/24 [History Confirmed 02/01/24] Allergies/Adverse Reactions: Allergies Allergy/AdvReac Type Severity Reaction Status Date / Time codeine [Codeine] Allergy Mild N&V Verified 02/01/24 19:32 Penicillins Allergy Mild Rash Verified 02/01/24 19:32 - Past Medical History Past Medical History: Yes Neurological History: Other ENT History: No Pertinent History Cardiac History: No Pertinent History, Hypertension Respiratory History: Asthma, COPD, Sleep Apnea Endocrine Medical History: Diabetes Type II Musculoskelatal History: No Pertinent History GI Medical History: Crohns Disease History: No Pertinent History Pyscho-Social History: Anxiety Reproductive Disorders: No Pertinent History Comment: Down syndrome reported - Female History Are you now?: No - Past Surgical History Past Surgical History: Yes Neuro Surgical History: No Pertinent History Cardiac History: No Pertinent History Respiratory Surgery: No Pertinent History GI Surgical History: Colon Resection Genitourinary Surgical Hx: No Pertinent History Musculskeletal Surgical Hx: Joint Replacement Female Surgical History: Hysterectomy, Section Other Surgical History: right knee replacement. left knee replacement Significant Family History: no pertinent family hx - Social History Smoking Status: Current every day smoker How long have you smoked: 15 years Exposure to second hand smoke: No (wood burner at home) Alcohol: None Drug Use: none - Social Determinants of Health Will the patient participate in the screening: Yes Do you worry about a steady place to live?: No Do you have any problems with any of the following?: No known problems In the past 12 months,have you had to go without utilities?: No Have you or anyone in your house had to go without enough: No Transportation Issues: No Has anyone in your support network made you feel unsafe?: No Does the patient want assistance with any of the above?: No - Physical Exam Vital Signs: Vital Signs - 24 hr Temp Pulse Resp BP BP Pulse Ox 02/02/24 02:46 97 02/02/24 02:09 97.3 F 67 16 182/84 98 02/02/24 02:02 98 02/02/24 01:30 150/124 97 02/02/24 01:02 163/116 02/02/24 00:30 150/98 98 02/02/24 00:00 166/95 96 02/01/24 23:30 152/96 99 02/01/24 23:00 73 18 128/68 97 02/01/24 22:30 152/108 02/01/24 22:01 142/84 02/01/24 21:30 131/76 95 02/01/24 21:00 87 20 136/82 97 02/01/24 20:30 77 20 131/80 96 02/01/24 20:00 87 18 152/79 94 L 02/01/24 19:30 88 20 151/81 97 02/01/24 19:23 98.4 F 72 20 157/84 96 General Appearance: no apparent distress, alert Neurologic Exam: alert, oriented x 3, cooperative, medical library assistant II-XII nml as tested, normal mood/affect, nml cerebellar function Eye Exam: PERRL/EOMI, eyes nml inspection Ears, Nose, Throat Exam: normal ENT inspection Neck Exam: normal inspection, non-tender, supple, full range of motion Respiratory Exam: normal breath sounds, lungs clear Cardiovascular Exam: regular rate/rhythm, normal heart sounds Gastrointestinal/Abdomen Exam: soft, tenderness (left upper quadrant without peritoneal signs or rigidity), distention, guarding, other (decreased bowel sounds) Back Exam: normal range of motion Extremity Exam: normal inspection, normal range of motion Skin Exam: normal color Results - Labs Lab/Micro Results: Lab Results-Last 24 Hours 02/01/24 02/01/24 02/01/24 Range/Units 19:30 19:30 19:35 WBC 12.3 H (4.0-10.5) x10^3/uL RBC 4.01 L (4.1-5.4) x10^6/uL Hgb 8.7 L (12.0-16.0) g/dL Hct 29.2 L (35-47) % MCV 72.8 L (78-100) fL MCH 21.7 L (26-32) pg MCHC 29.8 L (32-36) g/dL RDW 21.8 H (11.5-14.0) % Plt Count 559 H (150-450) x10^3/uL MPV 8.6 (7.5-11.0) fL Gran % 59.1 (36.0-66.0) % Immature Gran % (Auto) 0.2 (0.00-0.4) % Nucleat RBC Rel Count 0.0 (0.00-0.1) % Eos # (Auto) 0.35 (0-0.5) x10^3/uL Immature Gran # (Auto) 0.03 (0.00-0.03) x10^3u/L Absolute Lymphs (auto) 3.70 (1.0-4.6) x10^3/uL Absolute Monos (auto) 0.88 (0.0-1.3) x10^3/uL Absolute Nucleated RBC 0.00 (0.00-0.01) x10^3u/L Lymphocytes % 30.1 (24.0-44.0) % Monocytes % 7.2 (0.0-12.0) % Eosinophils % 2.9 (0.00-5.0) % Basophils % 0.5 (0.0-0.4) % Absolute Granulocytes 7.26 H (1.4-6.9) x10^3/uL Basophils # 0.06 (0-0.4) x10^3/uL Sodium 140 (135-145) mmol/L Potassium 3.8 (3.5-5.1) mmol/L Chloride 108 H (98-107) mmol/L Carbon Dioxide 25 (22-30) mmol/L Anion Gap 9.6 (5-15) MEQ/L BUN 21 H (7-17) mg/dL Creatinine 0.87 (0.52-1.04) mg/dL Estimated GFR 77.7 ML/MIN Glucose 113 H (74-106) mg/dL Calcium 8.4 (8.4-10.2) mg/dL Total Bilirubin 0.40 (0.2-1.3) mg/dL AST 16 (14-36) U/L ALT 14 (0-35) U/L Alkaline Phosphatase 83 (38-126) U/L Serum Total Protein 7.0 (6.3-8.2) g/dL Albumin 3.3 L (3.5-5.0) g/dL Amylase 40 (30-110) U/L Lipase 91 (23-300) U/L Urine Color (Yellow) Urine Appearance (Clear) Urine pH (4.6-8.0) Ur Specific [place] (1.005-1.030) Urine Protein (Negative) Urine Glucose (UA) (Negative) mg/dL Urine Ketones (Negative) Urine Blood (Negative) Urine Nitrite (Negative) Urine Bilirubin (Negative) Urine Urobilinogen (0.2) mg/dL Ur Leukocyte Esterase (Negative) U Hyaline Cast (Auto) (0-2) /LPF Urine Microscopic RBC (0-5) /HPF Urine Microscopic WBC (0-5) /HPF Ur Epithelial Cells (None Seen) /HPF Urine Bacteria (None Seen) /HPF Urine Culture Reflexed (NO) Influenza Type A Ag NEGATIVE (NEGATIVE) Influenza Type B Ag NEGATIVE (NEGATIVE) RSV (PCR) NEGATIVE (NEGATIVE) SARS-CoV-2 (PCR) NEGATIVE (NEGATIVE) 02/01/24 Range/Units 22:27 WBC (4.0-10.5) x10^3/uL RBC (4.1-5.4) x10^6/uL Hgb (12.0-16.0) g/dL Hct (35-47) % MCV (78-100) fL MCH (26-32) pg MCHC (32-36) g/dL RDW (11.5-14.0) % Plt Count (150-450) x10^3/uL MPV (7.5-11.0) fL Gran % (36.0-66.0) % Immature Gran % (Auto) (0.00-0.4) % Nucleat RBC Rel Count (0.00-0.1) % Eos # (Auto) (0-0.5) x10^3/uL Immature Gran # (Auto) (0.00-0.03) x10^3u/L Absolute Lymphs (auto) (1.0-4.6) x10^3/uL Absolute Monos (auto) (0.0-1.3) x10^3/uL Absolute Nucleated RBC (0.00-0.01) x10^3u/L Lymphocytes % (24.0-44.0) % Monocytes % (0.0-12.0) % Eosinophils % (0.00-5.0) % Basophils % (0.0-0.4) % Absolute Granulocytes (1.4-6.9) x10^3/uL Basophils # (0-0.4) x10^3/uL Sodium (135-145) mmol/L Potassium (3.5-5.1) mmol/L Chloride (98-107) mmol/L Carbon Dioxide (22-30) mmol/L Anion Gap (5-15) MEQ/L BUN (7-17) mg/dL Creatinine (0.52-1.04) mg/dL Estimated GFR ML/MIN Glucose (74-106) mg/dL Calcium (8.4-10.2) mg/dL Total Bilirubin (0.2-1.3) mg/dL AST (14-36) U/L ALT (0-35) U/L Alkaline Phosphatase (38-126) U/L Serum Total Protein (6.3-8.2) g/dL Albumin (3.5-5.0) g/dL Amylase (30-110) U/L Lipase (23-300) U/L Urine Color Yellow (Yellow) Urine Appearance Clear (Clear) Urine pH 5.5 (4.6-8.0) Ur Specific [place] >=1.030 A (1.005-1.030) Urine Protein Trace A (Negative) Urine Glucose (UA) Negative (Negative) mg/dL Urine Ketones Negative (Negative) Urine Blood Negative (Negative) Urine Nitrite Negative (Negative) Urine Bilirubin Negative (Negative) Urine Urobilinogen 1.0 A (0.2) mg/dL Ur Leukocyte Esterase Moderate A (Negative) U Hyaline Cast (Auto) NONE SEEN (0-2) /LPF Urine Microscopic RBC 0-2 (0-5) /HPF Urine Microscopic WBC >100 A (0-5) /HPF Ur Epithelial Cells None Seen (None Seen) /HPF Urine Bacteria None Seen (None Seen) /HPF Urine Culture Reflexed YES (NO) Influenza Type A Ag (NEGATIVE) Influenza Type B Ag (NEGATIVE) RSV (PCR) (NEGATIVE) SARS-CoV-2 (PCR) (NEGATIVE) - Radiology Impressions Radiology Exams & Impressions: Radiology Procedures Category Date Time Status ABDOMEN AND PELVIS W/0 CONTRAS [CT] Stat Exams 02/01/24 19:32 Taken KUB Routine Exams 02/02/24 07:00 Ordered Assessment/Plan (1) Partial bowel obstruction Current Visit: Yes Status: Acute Assessment & Plan: Unclear if CT findings are due to anatomy following reanastamosis. Bowel rest. Monitor exam. KUB in AM. Will need to contact general surgery in the AM for evaluation and recommendations. Code(s): K56.600 - PARTIAL INTESTINAL OBSTRUCTION, UNSPECIFIED TO CAUSE (2) Colitis Current Visit: Yes Status: Acute Assessment & Plan: IV antibiotics. Monitor clinical course. Placed on probiotics. Code(s): K52.9 - NONINFECTIVE GASTROENTERITIS AND COLITIS, UNSPECIFIED (3) Leukocytosis Current Visit: Yes Status: Acute Assessment & Plan: Likely due to colitis and UTI. Monitor. Code(s): D72.829 - ELEVATED WHITE BLOOD CELL COUNT, UNSPECIFIED (4) UTI (urinary tract infection) Current Visit: Yes Status: Acute Assessment & Plan: Culture collected. IV antibiotics. Code(s): N39.0 - URINARY TRACT INFECTION, SITE NOT SPECIFIED (5) Hyperglycemia due to type 2 diabetes mellitus Current Visit: No Status: Acute Qualifiers: Diabetes mellitus terminal block assembler insulin use: with terminal block assembler use Qualified Code(s): E11.65 - Type 2 diabetes mellitus with hyperglycemia; Z79.4 - FDC (current) use of insulin Assessment & Plan: Hold metformin and scheduled insulin while NPO. Monitor on ISS. Code(s): E11.65 - TYPE 2 DIABETES MELLITUS WITH HYPERGLYCEMIA Telemedicine Encounter - Telemedicine Encounter Telemedicine Encounter: The entirety of this encounter was performed via Telemedicine"
[2024-02-02] MEDS: NICODERM CQ 14 MG TOP SCH ×2 (04:16→08:27)
[2024-02-02 04:57] LABS: Absolute Neutrophil Ct (ANC) 5.56 x10^3/uL (1.4-6.9); BASOPHIL % 0.6 % (0.0-0.4); Basophil (Absolute #) 0.06 x10^3/uL (0-0.4); Eosinophil % 6.7 % (0.00-5.0); Eosinophil (Absolute #) 0.63 x10^3/uL (0-0.5); Hematocrit 27.1 % (35-47); Hemoglobin 7.8 g/dL (12.0-16.0); IMMATURE GRAN # 0.03 x10^3u/L (0.00-0.03); IMMATURE GRAN % 0.3 % (0.00-0.4); Lymphocyte (Absolute #) 2.43 x10^3/uL (1.0-4.6); Mean Cell Volume 74.9 fL (78-100); Mean Corpuscular Hemoglobin 21.5 pg (26-32); Mean Corpuscular Hgb Concent. 28.8 g/dL (32-36); Mean Platelet Volume 8.6 fL (7.5-11.0); Monocyte (Absolute #) 0.63 x10^3/uL (0.0-1.3); Monocytes % 6.7 % (0.0-12.0); Neutrophil % 59.7 % (36.0-66.0); Platelet Count 444 x10^3/uL (150-450); Red Blood Count 3.62 x10^6/uL (4.1-5.4); Red Cell Distribution Width 21.9 % (11.5-14.0); White Blood Count 9.3 x10^3/uL (4.0-10.5)
[2024-02-02 05:27] LABS: ALBUMIN 2.8 g/dL (3.5-5.0); ANION GAP 8.1 MEQ/L (5-15); BILIRUBIN,TOTAL 0.3 mg/dL (0.2-1.3); Calcium 7.7 mg/dL (8.4-10.2); Creatinine 1 0.84 mg/dL (0.52-1.04); Potassium 3.9 mmol/L (3.5-5.1); Total Protein 6.1 g/dL (6.3-8.2)
[2024-02-02 05:45] LABS: Slide Review 1 YES
[2024-02-02] MEDS: Dextrose 5%-NS IV Solution 1000 ML 1,000 ML IV SCH (08:22)
[2024-02-02] MEDS: Prozac 20 MG PO SCH (08:27)
[2024-02-02] MEDS: Zestril 20 MG PO SCH (08:27)
[2024-02-02] MEDS: Ditropan XL 5 MG PO SCH (08:28)
[2024-02-02] MEDS: Abilify 10 MG PO SCH (08:28)
[2024-02-02] MEDS: ZOCOR 20MG PO SCH (08:28)
[2024-02-02] MEDS: Acidophilus TABLET PO SCH (08:28)
[2024-02-02] MEDS: Pepcid 20 MG PO SCH (08:29)
[2024-02-02] MEDS: Wellbutrin XL 150 MG PO SCH (08:29)
--- NOTE | 2024-02-02 08:58 | XRAY ---
Indication: Abdomen pain. Vomiting and diarrhea. Multiple contiguous axial images obtained through the abdomen and pelvis without contrast. Comparison: November 12, 2020 Lung bases demonstrates minimal dependent atelectasis. No infiltrate or effusion. Heart is borderline enlarged. Noncontrasted stomach and bowel loops appear nonobstructed. Interval colostomy reversal. New mild/moderate diffuse colonic bowel wall thickening with pericolonic stranding greatest distal descending/proximal sigmoid colon favoring colitis. Proximal sigmoid colon also demonstrates short segment of caliber narrowing with the more proximal colon distended up to 5 cm concerning for partial obstruction. Normal distal colonic bowel gas with fecal debris. Again appendectomy and cholecystectomy. No free fluid/air. Stable incidental small left adrenal adenoma and tiny splenic calcified granulomas. Remaining liver, pancreas, spleen, adrenal glands, kidneys, ureters, and bladder are unremarkable for noncontrast exam. Stable mild scattered aortoiliac calcifications without AAA. Osseous structures intact again with minimal degenerative changes throughout spine and mild degenerative changes both hips. No ventral or inguinal hernias. Impression: 1. New diffuse colitis. Sigmoid colon also demonstrates new caliber narrowing with proximal colonic distention concerning for partial obstruction. 2. Again chronic findings including left adrenal adenoma, arteriosclerotic disease, and chronic bony findings.
--- NOTE | 2024-02-02 09:00 | XRAY ---
Indication: Partial bowel obstruction. Comparison: CT abdomen/pelvis 1 day earlier. KUB again demonstrates abnormal air distended colon to the level of proximal sigmoid favoring partial obstruction. No large free air. Osseous structures intact with multilevel degenerative spondylosis and mild levoscoliosis.
--- NOTE | 2024-02-02 09:12 | PCM.NOTE ---
Date and Time: 02/02/24904 Subjective Assessment: is a 58 year old female patient who has a history of Crohns disease with bowel resection and subsequent reanastamosis, insulin-dependent diabetes, COPD, hyperlipidemia, hypertension, anxiety, and mild mental deficits. She presented 02/01/24 with sx of multiple episodes of nausea vomiting and diarrhea that began at 10:30 on the morning. She had abdominal pain which was mild and diffuse. She reported not holding any fluids down. She has not been on any antibiotics recently. In the ED, the patient was noted to have a possible early partial bowel obstruction, colitis and a UTI, so antibiotics were initiated and continued on admission. Pt reports since admission she has had no N/V/D. She is feeling overall better today. She does have some LLQ pain with palpation. She also reports dark stools. Occult stool pending. KUB this AM is favorable for partial small bowel obstruction. D/T her hx will keep NPO and consult surgery. She denies any further concerns at this time. - Review of Systems Constitutional: No Fever, No Chills Eyes: No Symptoms Ears, Nose, & Throat: No Symptoms Respiratory: No Cough, No Short Of Breath Cardiac: No Chest Pain, No Edema, No Syncope Abdominal/Gastrointestinal: Abdominal Pain (LLQ), No Nausea, No Vomiting, No Diarrhea Genitourinary Symptoms: No Dysuria Musculoskeletal: No Back Pain, No Neck Pain Skin: No Rash Neurological: No Dizziness, No Focal Weakness, No Sensory Changes Psychological: No Symptoms Endocrine: No Symptoms Hematologic/Lymphatic: No Symptoms Immunological/Allergic: No Symptoms Objective Exam General Appearance: no apparent distress, alert Neurologic Exam: alert, oriented x 3, cooperative, normal mood/affect, nml cerebellar function, sensation nml, No motor deficits Skin Exam: normal color, warm, dry Eye Exam: PERRL, EOMI, eyes nml inspection Ears, Nose, Throat Exam: normal ENT inspection, pharynx normal, moist mucous membranes Neck Exam: normal inspection, non-tender, supple, full range of motion Respiratory Exam: normal breath sounds, lungs clear, No respiratory distress Cardiovascular Exam: regular rate/rhythm, normal heart sounds Gastrointestinal/Abdomen Exam: soft, tenderness (LLQ pain with palpation), No mass Extremity Exam: normal inspection, normal range of motion Back Exam: normal inspection, normal range of motion, No CVA tenderness, No vertebral tenderness Pelvic Exam: deferred Rectal Exam: deferred Objective Data Vital Signs: Vital Signs - 24 hr Temp Pulse Resp BP BP Pulse Ox 02/02/24 08:05 63 16 95 02/02/24 07:59 97.7 F 69 16 169/89 98 02/02/24 05:05 68 16 98 02/02/24 02:46 97 02/02/24 02:09 97.3 F 67 16 182/84 98 02/02/24 02:02 98 02/02/24 01:30 150/124 97 02/02/24 01:02 163/116 02/02/24 00:30 150/98 98 02/02/24 00:00 166/95 96 02/01/24 23:30 152/96 99 02/01/24 23:00 73 18 128/68 97 02/01/24 22:30 152/108 02/01/24 22:01 142/84 02/01/24 21:30 131/76 95 02/01/24 21:00 87 20 136/82 97 02/01/24 20:30 77 20 131/80 96 02/01/24 20:00 87 18 152/79 94 L 02/01/24 19:30 88 20 151/81 97 02/01/24 19:23 98.4 F 72 20 157/84 96 Pain Assessment - Last Documented Pain Intensity 0 Intake and Output: Intake & Output 01/30/24 01/31/24 02/01/24 02/02/24 11:59 11:59 11:59 11:59 Intake Total 0 Output Total 600 Balance -600 Weight 82.9 kg Lab Results: Lab Results-Last 24 Hours 02/01/24 02/01/24 02/01/24 Range/Units 19:30 19:30 19:35 WBC 12.3 H (4.0-10.5) x10^3/uL RBC 4.01 L (4.1-5.4) x10^6/uL Hgb 8.7 L (12.0-16.0) g/dL Hct 29.2 L (35-47) % MCV 72.8 L (78-100) fL MCH 21.7 L (26-32) pg MCHC 29.8 L (32-36) g/dL RDW 21.8 H (11.5-14.0) % Plt Count 559 H (150-450) x10^3/uL MPV 8.6 (7.5-11.0) fL Gran % 59.1 (36.0-66.0) % Immature Gran % (Auto) 0.2 (0.00-0.4) % Nucleat RBC Rel Count 0.0 (0.00-0.1) % Eos # (Auto) 0.35 (0-0.5) x10^3/uL Immature Gran # (Auto) 0.03 (0.00-0.03) x10^3u/L Absolute Lymphs (auto) 3.70 (1.0-4.6) x10^3/uL Absolute Monos (auto) 0.88 (0.0-1.3) x10^3/uL Absolute Nucleated RBC 0.00 (0.00-0.01) x10^3u/L Lymphocytes % 30.1 (24.0-44.0) % Monocytes % 7.2 (0.0-12.0) % Eosinophils % 2.9 (0.00-5.0) % Basophils % 0.5 (0.0-0.4) % Absolute Granulocytes 7.26 H (1.4-6.9) x10^3/uL Basophils # 0.06 (0-0.4) x10^3/uL Sodium 140 (135-145) mmol/L Potassium 3.8 (3.5-5.1) mmol/L Chloride 108 H (98-107) mmol/L Carbon Dioxide 25 (22-30) mmol/L Anion Gap 9.6 (5-15) MEQ/L BUN 21 H (7-17) mg/dL Creatinine 0.87 (0.52-1.04) mg/dL Estimated GFR 77.7 ML/MIN Glucose 113 H (74-106) mg/dL Calcium 8.4 (8.4-10.2) mg/dL Total Bilirubin 0.40 (0.2-1.3) mg/dL AST 16 (14-36) U/L ALT 14 (0-35) U/L Alkaline Phosphatase 83 (38-126) U/L NT-Pro-B Natriuret Pep (<300) pg/mL Serum Total Protein 7.0 (6.3-8.2) g/dL Albumin 3.3 L (3.5-5.0) g/dL Amylase 40 (30-110) U/L Lipase 91 (23-300) U/L Urine Color (Yellow) Urine Appearance (Clear) Urine pH (4.6-8.0) Ur Specific Ashley (1.005-1.030) Urine Protein (Negative) Urine Glucose (UA) (Negative) mg/dL Urine Ketones (Negative) Urine Blood (Negative) Urine Nitrite (Negative) Urine Bilirubin (Negative) Urine Urobilinogen (0.2) mg/dL Ur Leukocyte Esterase (Negative) U Hyaline Cast (Auto) (0-2) /LPF Urine Microscopic RBC (0-5) /HPF Urine Microscopic WBC (0-5) /HPF Ur Epithelial Cells (None Seen) /HPF Urine Bacteria (None Seen) /HPF Urine Culture Reflexed (NO) Influenza Type A Ag NEGATIVE (NEGATIVE) Influenza Type B Ag NEGATIVE (NEGATIVE) RSV (PCR) NEGATIVE (NEGATIVE) SARS-CoV-2 (PCR) NEGATIVE (NEGATIVE) Slides for Path Review 02/01/24 02/02/24 02/02/24 Range/Units 22:27 04:20 04:20 WBC 9.3 (4.0-10.5) x10^3/uL RBC 3.62 L (4.1-5.4) x10^6/uL Hgb 7.8 L (12.0-16.0) g/dL Hct 27.1 L (35-47) % MCV 74.9 L (78-100) fL MCH 21.5 L (26-32) pg MCHC 28.8 L (32-36) g/dL RDW 21.9 H (11.5-14.0) % Plt Count 444 (150-450) x10^3/uL MPV 8.6 (7.5-11.0) fL Gran % 59.7 (36.0-66.0) % Immature Gran % (Auto) 0.3 (0.00-0.4) % Nucleat RBC Rel Count 0.0 (0.00-0.1) % Eos # (Auto) 0.63 H (0-0.5) x10^3/uL Immature Gran # (Auto) 0.03 (0.00-0.03) x10^3u/L Absolute Lymphs (auto) 2.43 (1.0-4.6) x10^3/uL Absolute Monos (auto) 0.63 (0.0-1.3) x10^3/uL Absolute Nucleated RBC 0.00 (0.00-0.01) x10^3u/L Lymphocytes % 26.0 (24.0-44.0) % Monocytes % 6.7 (0.0-12.0) % Eosinophils % 6.7 H (0.00-5.0) % Basophils % 0.6 (0.0-0.4) % Absolute Granulocytes 5.56 (1.4-6.9) x10^3/uL Basophils # 0.06 (0-0.4) x10^3/uL Sodium 139 (135-145) mmol/L Potassium 3.9 (3.5-5.1) mmol/L Chloride 111 H (98-107) mmol/L Carbon Dioxide 23 (22-30) mmol/L Anion Gap 8.1 (5-15) MEQ/L BUN 18 H (7-17) mg/dL Creatinine 0.84 (0.52-1.04) mg/dL Estimated GFR 81.0 ML/MIN Glucose 92 (74-106) mg/dL Calcium 7.7 L (8.4-10.2) mg/dL Total Bilirubin 0.30 (0.2-1.3) mg/dL AST 14 (14-36) U/L ALT 13 (0-35) U/L Alkaline Phosphatase 73 (38-126) U/L NT-Pro-B Natriuret Pep 226 (<300) pg/mL Serum Total Protein 6.1 L (6.3-8.2) g/dL Albumin 2.8 L (3.5-5.0) g/dL Amylase (30-110) U/L Lipase (23-300) U/L Urine Color Yellow (Yellow) Urine Appearance Clear (Clear) Urine pH 5.5 (4.6-8.0) Ur Specific Ashley >=1.030 A (1.005-1.030) Urine Protein Trace A (Negative) Urine Glucose (UA) Negative (Negative) mg/dL Urine Ketones Negative (Negative) Urine Blood Negative (Negative) Urine Nitrite Negative (Negative) Urine Bilirubin Negative (Negative) Urine Urobilinogen 1.0 A (0.2) mg/dL Ur Leukocyte Esterase Moderate A (Negative) U Hyaline Cast (Auto) NONE SEEN (0-2) /LPF Urine Microscopic RBC 0-2 (0-5) /HPF Urine Microscopic WBC >100 A (0-5) /HPF Ur Epithelial Cells None Seen (None Seen) /HPF Urine Bacteria None Seen (None Seen) /HPF Urine Culture Reflexed YES (NO) Influenza Type A Ag (NEGATIVE) Influenza Type B Ag (NEGATIVE) RSV (PCR) (NEGATIVE) SARS-CoV-2 (PCR) (NEGATIVE) Slides for Path Review YES Radiology Exams: Radiology Procedures Category Date Time Status ABDOMEN AND PELVIS W/0 CONTRAS [CT] Stat Exams 02/01/24 19:32 Completed KUB Routine Exams 02/02/24 07:00 Completed Assessment/Plan (1) Partial bowel obstruction Current Visit: Yes Status: Acute Assessment & Plan: - CT abd/ pelvis 02/01/24 Impression: 1. New diffuse colitis. Sigmoid colon also demonstrates new caliber narrowing with proximal colonic distention concerning for partial obstruction. 2. Again chronic findings including left adrenal adenoma, arteriosclerotic disease, and chronic bony findings. 02/01 - KUB 02/02/24 KUB again demonstrates abnormal air distended colon to the level of proximal sigmoid favoring partial obstruction. No large free air. Osseous structures intact with multilevel degenerative spondylosis and mild levoscoliosis. - N/V/D resolved - Surgery consult d/t hx - NPO - + LLQ pain with palpation. - IVF Code(s): K56.600 - PARTIAL INTESTINAL OBSTRUCTION, UNSPECIFIED TO CAUSE (2) Colitis Current Visit: Yes Status: Acute Assessment & Plan: - As seen on CT - WBC on admisssion 12.3 -Flagyl and Levaquin started - IVF 02/01 - WBC 9.3 - N/V/D resolved Code(s): K52.9 - NONINFECTIVE GASTROENTERITIS AND COLITIS, UNSPECIFIED (3) Anemia Current Visit: Yes Status: Acute Assessment & Plan: - Iron panel - Hgb 7.8- trend - admits to dark stools - Pepcid 40 IV BID - Occult stool Code(s): D64.9 - ANEMIA, UNSPECIFIED (4) Abdominal pain Current Visit: No Status: Acute Qualifiers: Abdominal location: left lower quadrant Qualified Code(s): R10.32 - Left lower quadrant pain Assessment & Plan: - CT abd/ pelvis 02/01/24 Impression: 1. New diffuse colitis. Sigmoid colon also demonstrates new caliber narrowing with proximal colonic distention concerning for partial obstruction. 2. Again chronic findings including left adrenal adenoma, arteriosclerotic disease, and chronic bony findings. 02/01 - Pain of LLQ with palpation, pt reports improved from yesterday - IVF - see partial SBO plan Code(s): R10.9 - UNSPECIFIED ABDOMINAL PAIN (5) Vomiting and diarrhea Current Visit: Yes Status: Resolved Assessment & Plan: - resolved - Zofran PRN Code(s): R11.10 - VOMITING, UNSPECIFIED; R19.7 - DIARRHEA, UNSPECIFIED (6) HTN (hypertension) Current Visit: Yes Status: Chronic Qualifiers: Hypertension type: primary hypertension Qualified Code(s): I10 - Essential (primary) hypertension Assessment & Plan: - Continue home meds - PRN hydralizine Code(s): I10 - ESSENTIAL (PRIMARY) HYPERTENSION (7) Hyperlipidemia Current Visit: Yes Status: Chronic Assessment & Plan: - Continue statin Code(s): E78.5 - HYPERLIPIDEMIA, UNSPECIFIED (8) Anxiety Current Visit: Yes Status: Chronic Assessment & Plan: - Controlled - Continue home meds Code(s): F41.9 - ANXIETY DISORDER, UNSPECIFIED (9) UTI (urinary tract infection) Current Visit: Yes Status: Acute Assessment & Plan: - Levaquin - UC pending Code(s): N39.0 - URINARY TRACT INFECTION, SITE NOT SPECIFIED (10) Type II diabetes mellitus Current Visit: Yes Status: Acute Qualifiers: Diabetes mellitus intermediate insulin use: 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
[2024-02-02] MEDS ORDERED: NON-FORMULARY ITEM (Fluoxetine Hcl [Prozac] 40 MG Capsule) PO SCH (10:00)
[2024-02-02] MEDS ORDERED: NON-FORMULARY ITEM (Lisinopril [Lisinopril] 40 MG Tablet) PO SCH (10:00)
[2024-02-02] MEDS ORDERED: NON-FORMULARY ITEM (Atorvastatin Calcium [Atorvastatin Calcium] 20 MG Tablet) PO SCH (10:00)
[2024-02-02] MEDS ORDERED: NON-FORMULARY ITEM (Aripiprazole [Abilify] 5 MG Tablet) PO SCH (10:00)
[2024-02-02] MEDS ORDERED: Levofloxacin 500MG/100ML D5W 500 MG/100 ML BAG IV SCH (10:00)
[2024-02-02 10:30] LABS: Iron 25 ug/dL (37-170); Iron Saturation 7 % (20-39); TIBC 382 ug/dL (265-462)
[2024-02-02] MEDS: Pepcid 20 MG VIAL IV SCH (11:17)
[2024-02-02 11:25] LABS: Ferritin 6.14 ng/mL (11.1-264); Folate (Folic Acid) 5.43 ng/mL (2.76 - >20)
[2024-02-02 12:36] LABS: IFOB TEST RESULTS POSITIVE (NEGATIVE)
[2024-02-02] MEDS: FEOSOL 325 MG PO SCH (16:19)
[2024-02-02] MEDS: Zofran 4 MG/2 ML VIAL IV PRN (17:03)
[2024-02-02] MEDS: Levofloxacin 500MG/100ML D5W 500 MG/100 ML BAG IV SCH (21:30)
[2024-02-02] MEDS: Singulair 10 MG PO SCH (21:30)
[2024-02-02] MEDS: APRESOLINE 20 MG/ML INJ IV PRN (23:23)
[2024-02-03] MEDS: TYLENOL 325 MG PO PRN (03:27)
[2024-02-03 05:10] LABS: Hemoglobin 9.4 g/dL (12.0-16.0); Mean Cell Volume 74.1 fL (78-100); Mean Corpuscular Hemoglobin 21.8 pg (26-32); Mean Corpuscular Hgb Concent. 29.4 g/dL (32-36); Platelet Count 565 x10^3/uL (150-450); Red Blood Count 4.32 x10^6/uL (4.1-5.4); Red Cell Distribution Width 21.7 % (11.5-14.0); White Blood Count 12.3 x10^3/uL (4.0-10.5)
[2024-02-03 05:13] LABS: ALBUMIN 3.5 g/dL (3.5-5.0); ANION GAP 11.8 MEQ/L (5-15); BILIRUBIN,TOTAL 0.5 mg/dL (0.2-1.3); Calcium 8.7 mg/dL (8.4-10.2); Creatinine 1 0.93 mg/dL (0.52-1.04); EST GLOMERULAR FILTRATION RATE 71.7 ML/MIN; Potassium 3.8 mmol/L (3.5-5.1); Total Protein 7.4 g/dL (6.3-8.2)
[2024-02-03 07:35] VITALS: RESP 16
[2024-02-03] MEDS: NORVASC 5 MG PO SCH (08:04)
--- NOTE | 2024-02-03 08:13 | CONS ---
CONSULT DATE: 02/02/2024 HISTORY: The patient came in yesterday. I am not sure if Dr. Guillermo Inman was cotton picker during this time or not. She had loose stools, some nausea and vomiting, some abdominal aches and pains. Today her pain has resolved. She had some darkish stools two or three days ago but she had normal bowel movements she said that were soft and firming up. She has had something to eat at this time. She has history of Crohn's disease, chronic obstructive pulmonary disease, hyperlipidemia, hypertension and anxiety. She was seen by Dr. Mikel cantor here in [place] recently in the past month or two. According to our office, Dr. Miik Inman had done a partial colectomy on her that ended up being Crohn's in the past. She was having some bloody stools currently. Hemoglobin 8.7 and 7.8 with nutritional hydration. PAST MEDICAL HISTORY: Asthma, chronic obstructive pulmonary disease, hyperlipidemia, hypertension, anxiety, diabetes, obesity. Down Syndrome component as well. PAST SURGICAL HISTORY: section. Hysterectomy. Bilateral knee replacement. Partial colectomy with Dr. Miki Inman in the past. HOME MEDICATIONS: Aripiprazole, albuterol, fluoxetine, atorvastatin, metformin, Montelukast, oxybutynin, bupropion, Lisinopril, Lispro insulin. ALLERGIES: CODEINE. PENICILLIN. FAMILY HISTORY: Negative in regards to this problem. SOCIAL HISTORY: Smoker. No alcohol abuse. REVIEW OF SYSTEMS: Twelve systems reviewed. No chest pain or palpitations. Negative or noncontributory as above and per preadmission questionnaire. She denied any nausea or vomiting. She wanted to eat. She was having some small bowel movements. LAB DATA AND TESTS: CT films were reviewed. She had a little bit of thickening of her colon on the left side. She had some gas in her colon. She had some gas and stool down in the rectum distally. She had moderate colon thickening consistent with colitis. The patient is afebrile. Vital signs stable currently. PHYSICAL EXAMINATION: GENERAL: No acute distress. HEENT: Sclera nonicteric. EOMI. Oral mucous membranes moist. NECK: No JVD. CHEST: Equal excursion, nonlabored breathing. CVS: Regular rate and rhythm. ABDOMEN: Soft, obese. No peritoneal signs. EXTREMITIES: No significant edema. NEURO: Alert. PSYCH: Appropriate mood and affect. SKIN: Dry. IMPRESSION: A 58-year-old had some nausea, vomiting and diarrhea. The nausea and vomiting has resolved. Whether she had a bacterial or viral colitis if this is a Crohn's exacerbation is unclear. Either way she does not appear to need any emergent surgical intervention. I do feel she needs to follow with GI given her Crohn's history and they can decide whether she needs additional medical management of her Crohn's. They likely would be interested in doing their own endoscopy. At this time, no emergent surgical intervention necessary. Again, I recommend she follow up with gastroenterology regarding her history of Crohn's and colitis. In the meantime, continue antibiotics. She wants to eat and advance her diet now. She needs to follow up GI as an outpatient. Otherwise, as Miki Storm has done a scope on her in the past she could follow up with him as an outpatient as he has done a colon resection on her according to our office staff as mentioned earlier but I do not have the records in front of me at this time. Continue medical management, antibiotics and advance her diet. Again, she needs to follow up with GI for Crohn's exacerbation and decide on medical management particularly long-term care with Crohn's. I will start her on some liquids as she is having soft bowel movements now. I do not feel she needs any acute surgical intervention necessary at this point.
--- NOTE | 2024-02-03 11:36 | PCM.DS ---
Discharge Summary Date of Admission: 02/02/24 01:57 Date of Discharge: 02/03/24 Admitting Physician: HEDY BRYAN MD Consults: Consults on Case 02/02/24 09:10 Consult Surgery ROUTINE Primary Care Provider: NO FAMILY DOCTOR Allergies Allergies codeine [Codeine] Allergy (Mild, Verified 02/01/24 19:32) N&V Penicillins Allergy (Mild, Verified 02/01/24 19:32) [facility] Summary - Hospital Course Hospital Course: 02/02/24 is a 58 year old female patient who has a history of Crohns disease with bowel resection and subsequent reanastamosis, insulin-dependent diabetes, COPD, hyperlipidemia, hypertension, anxiety, and mild mental deficits. She presented 02/01/24 with sx of multiple episodes of nausea vomiting and diarrhea that began at 10:30 on the morning. She had abdominal pain which was mild and diffuse. She reported not holding any fluids down. She has not been on any antibiotics recently. In the ED, the patient was noted to have a possible early partial bowel obstruction, colitis and a UTI, so antibiotics were initiated and continued on admission. Pt reports since admission she has had no N/V/D. She is feeling overall better today. She does have some LLQ pain with palpation. She also reports dark stools. Occult stool pending. KUB this AM is favorable for partial small bowel obstruction. D/T her hx will keep NPO and consult surgery. She denies any further concerns at this time. 02/03/24 Pt sitting up in bed. She reports she is feeling much better. She continues to have loose stools. Advised to take a probiotic OP. Surgery was consulted yesterday and advised to start a full liquid diet and advance as tolerated and no intervention needed. They also advised to f/u with a GI specialist OP. She recently moved her 2 weeks ago and living with family. Antibiotics stopped as UC negative. Bp elevated and amlodipine daily added. If BP improves pt can d/c today. She denies CP - Vitals & Intake/Output Vital Signs: Vital Signs Temperature 97.9 F 02/03/24 07:34 Pulse Rate 85 02/03/24 07:34 Respiratory Rate 16 02/03/24 07:34 Blood Pressure 155/83 02/03/24 07:34 O2 Sat by Pulse Oximetry 92 L 02/03/24 07:34 Intake & Output: Intake & Output 01/31/24 02/01/24 02/02/24 02/03/24 11:59 11:59 11:59 11:59 Intake Total 0 4540 Output Total 600 2250 Balance -600 2290 Weight 82.9 kg - Lab Result Diagrams: 02/03/24 04:25 02/03/24 04:25 Lab Results-Last 24 Hrs: Lab Results-Last 24 Hours 02/02/24 02/02/24 02/03/24 Range/Units 04:20 10:48 04:25 WBC 12.3 H (4.0-10.5) x10^3/uL RBC 4.32 (4.1-5.4) x10^6/uL Hgb 9.4 L D (12.0-16.0) g/dL Hct 32.0 L (35-47) % MCV 74.1 L (78-100) fL MCH 21.8 L (26-32) pg MCHC 29.4 L (32-36) g/dL RDW 21.7 H (11.5-14.0) % Plt Count 565 H (150-450) x10^3/uL MPV 9.0 (7.5-11.0) fL Sodium (135-145) mmol/L Potassium (3.5-5.1) mmol/L Chloride (98-107) mmol/L Carbon Dioxide (22-30) mmol/L Anion Gap (5-15) MEQ/L BUN (7-17) mg/dL Creatinine (0.52-1.04) mg/dL Estimated GFR ML/MIN Glucose (74-106) mg/dL Calcium (8.4-10.2) mg/dL Ferritin 6.14 L (11.1-264) ng/mL Total Bilirubin (0.2-1.3) mg/dL AST (14-36) U/L ALT (0-35) U/L Alkaline Phosphatase (38-126) U/L Serum Total Protein (6.3-8.2) g/dL Albumin (3.5-5.0) g/dL Vitamin B12 327 (239-931) pg/mL Folic Acid 5.43 (2.76 - >20) ng/mL Stl Occult Blood (IFOB) POSITIVE A (NEGATIVE) 02/03/24 Range/Units 04:25 WBC (4.0-10.5) x10^3/uL RBC (4.1-5.4) x10^6/uL Hgb (12.0-16.0) g/dL Hct (35-47) % MCV (78-100) fL MCH (26-32) pg MCHC (32-36) g/dL RDW (11.5-14.0) % Plt Count (150-450) x10^3/uL MPV (7.5-11.0) fL Sodium 139 (135-145) mmol/L Potassium 3.8 (3.5-5.1) mmol/L Chloride 108 H (98-107) mmol/L Carbon Dioxide 23 (22-30) mmol/L Anion Gap 11.8 (5-15) MEQ/L BUN 10 (7-17) mg/dL Creatinine 0.93 (0.52-1.04) mg/dL Estimated GFR 71.7 ML/MIN Glucose 111 H (74-106) mg/dL Calcium 8.7 (8.4-10.2) mg/dL Ferritin (11.1-264) ng/mL Total Bilirubin 0.50 (0.2-1.3) mg/dL AST 15 (14-36) U/L ALT 14 (0-35) U/L Alkaline Phosphatase 89 (38-126) U/L Serum Total Protein 7.4 (6.3-8.2) g/dL Albumin 3.5 (3.5-5.0) g/dL Vitamin B12 (239-931) pg/mL Folic Acid (2.76 - >20) ng/mL Stl Occult Blood (IFOB) (NEGATIVE) Micro Results-Entire Visit: Microbiology 02/01/24 22:27 Urine Culture - Final Urine, Void <10K NORMAL SKIN HIRAM PROBABLE SKIN CONTAMINANT Accuchecks Date 02/03/24 Date 02/02/24 Date 02/02/24 Date 02/02/24 Time 21:15 Time 16:39 Time 12:03 - Radiology Exams Ordered Rad Exams-Entire Visit: Radiology Procedures Category Date Time Status ABDOMEN AND PELVIS W/0 CONTRAS [CT] Stat Exams 02/01/24 19:32 Completed KUB Routine Exams 02/02/24 07:00 Completed - Procedures and Test Procedures and Tests throughout Hospitalization: Therapy Orders & Screens 02/02/24 05:05 Respiratory Therapy Assessment UD Comment: Diagnosis: Colitis Discharge Exam General Appearance: no apparent distress, alert Neurologic Exam: alert, oriented x 3, cooperative, normal mood/affect, nml cerebellar function, sensation nml, No motor deficits Eye Exam: PERRL, EOMI, eyes nml inspection Ears, Nose, Throat Exam: normal ENT inspection, pharynx normal, moist mucous membranes Neck Exam: normal inspection, non-tender, supple, full range of motion Respiratory Exam: normal breath sounds, lungs clear, No respiratory distress Cardiovascular Exam: regular rate/rhythm, normal heart sounds Gastrointestinal/Abdomen Exam: soft, No tenderness, No mass Pelvic Exam: deferred Rectal Exam: deferred Back Exam: normal inspection, normal range of motion, No CVA tenderness, No vertebral tenderness Extremity Exam: normal inspection, normal range of motion Skin Exam: normal color, warm, dry Final Diagnosis/Problem List - Final Discharge Diagnosis/Problem (1) Partial bowel obstruction Current Visit: Yes Status: Acute Code(s): K56.600 - PARTIAL INTESTINAL OBSTRUCTION, UNSPECIFIED TO CAUSE (2) Colitis Current Visit: Yes Status: Acute Code(s): K52.9 - NONINFECTIVE GASTROENTERITIS AND COLITIS, UNSPECIFIED (3) Anemia Current Visit: Yes Status: Acute Code(s): D64.9 - ANEMIA, UNSPECIFIED (4) Abdominal pain Current Visit: No Status: Acute Code(s): R10.9 - UNSPECIFIED ABDOMINAL PAIN (5) Vomiting and diarrhea Current Visit: Yes Status: Resolved Code(s): R11.10 - VOMITING, UNSPECIFIED; R19.7 - DIARRHEA, UNSPECIFIED (6) HTN (hypertension) Current Visit: Yes Status: Chronic Code(s): I10 - ESSENTIAL (PRIMARY) HYPERTENSION (7) Hyperlipidemia Current Visit: Yes Status: Chronic Code(s): E78.5 - HYPERLIPIDEMIA, UNSPECIFIED (8) Anxiety Current Visit: Yes Status: Chronic Code(s): F41.9 - ANXIETY DISORDER, UNSPECIFIED (9) UTI (urinary tract infection) Current Visit: Yes Status: Acute Code(s): N39.0 - URINARY TRACT INFECTION, SITE NOT SPECIFIED (10) Type II diabetes mellitus Current Visit: Yes Status: Acute Assessment & Plan: (1) Partial bowel obstruction Current Visit: Yes Status: Acute Assessment & Plan: - CT abd/ pelvis 02/01/24 Impression: 1. New diffuse colitis. Sigmoid colon also demonstrates new caliber narrowing with proximal colonic distention concerning for partial obstruction. 2. Again chronic findings including left adrenal adenoma, arteriosclerotic disease, and chronic bony findings. 02/01 - KUB 02/02/24 KUB again demonstrates abnormal air distended colon to the level of proximal sigmoid favoring partial obstruction. No large free air. Osseous structures intact with multilevel degenerative spondylosis and mild levoscoliosis. - N/V/D resolved - Surgery consult d/t hx - NPO - + LLQ pain with palpation. - IVF 02/02 - Recs per surgery: start on full liquid diet ( last night), advance as tolerated, no intervention needed at this time, F/U with GI OP. - pt tolerating diet advancement Code(s): K56.600 - PARTIAL INTESTINAL OBSTRUCTION, UNSPECIFIED TO CAUSE (2) Colitis Current Visit: Yes Status: Acute Assessment & Plan: - As seen on CT - WBC on admisssion 12.3 -Flagyl and Levaquin started - IVF 02/01 - WBC 9.3 - N/V/D resolved 02/02 - + loose stools - continue probiotics OP Code(s): K52.9 - NONINFECTIVE GASTROENTERITIS AND COLITIS, UNSPECIFIED (3) Anemia Current Visit: Yes Status: Acute Assessment & Plan: - Iron panel - Hgb 7.8- trend - admits to dark stools - Pepcid 40 IV BID - Occult stool 02/02 - Hgb 9.4- improved - Labs show iron def. anemia - Continue ferrous sulfate OP - No intervention at this time per GS Code(s): D64.9 - ANEMIA, UNSPECIFIED (4) Abdominal pain Current Visit: No Status: Acute Qualifiers: Abdominal location: left lower quadrant Qualified Code(s): R10.32 - Left lower quadrant pain Assessment & Plan: - CT abd/ pelvis 02/01/24 Impression: 1. New diffuse colitis. Sigmoid colon also demonstrates new caliber narrowing with proximal colonic distention concerning for partial obstruction. 2. Again chronic findings including left adrenal adenoma, arteriosclerotic disease, and chronic bony findings. 02/01 - Pain of LLQ with palpation, pt reports improved from yesterday - IVF - see partial SBO plan 02/02 - resolved Code(s): R10.9 - UNSPECIFIED ABDOMINAL PAIN (5) Vomiting and diarrhea Current Visit: Yes Status: Resolved Assessment & Plan: - resolved - Zofran PRN Code(s): R11.10 - VOMITING, UNSPECIFIED; R19.7 - DIARRHEA, UNSPECIFIED (6) HTN (hypertension) Current Visit: Yes Status: Chronic Qualifiers: Hypertension type: primary hypertension Qualified Code(s): I10 - Essential (primary) hypertension Assessment & Plan: - Continue home meds - PRN hydralizine 02/02 - amlodipine added and will continue OP - BP improved with med - will need to f/u with PCP for BP recheck Code(s): I10 - ESSENTIAL (PRIMARY) HYPERTENSION (7) Hyperlipidemia Current Visit: Yes Status: Chronic Assessment & Plan: - Continue statin Code(s): E78.5 - HYPERLIPIDEMIA, UNSPECIFIED (8) Anxiety Current Visit: Yes Status: Chronic Assessment & Plan: - Controlled - Continue home meds Code(s): F41.9 - ANXIETY DISORDER, UNSPECIFIED (9) UTI (urinary tract infection) Current Visit: Yes Status: Acute Assessment & Plan: - Levaquin - UC pending 02/02 - UC negative - antibiotic stopped Code(s): N39.0 - URINARY TRACT INFECTION, SITE NOT SPECIFIED (10) Type II diabetes mellitus Current Visit: Yes Status: Acute Qualifiers: Diabetes mellitus jail insulin use: without extermination inspector use Assessment & Plan: - Hold metformin - Humalog s/s - accuchecks ac/hs - IVF stopped - Pt tolerating diet now. - A1C- 5.38- controlled (11) Yeast dermatitis Current Visit: Yes Status: Acute Assessment & Plan: - groin folds - nystatin cream BID Code(s): B37.2 - CANDIDIASIS OF SKIN AND NAIL - Discharge Discharge Date: 02/03/24 Disposition: Home, Self-Care Condition: Stable Prescriptions: New Ferrous Sulfate 325 mg [Feosol 325 mg] 325 mg PO DAILY 30 Days #30 tablet Amlodipine Besylate 5 mg [Norvasc 5 mg] 5 mg PO QAM 30 Days #30 tablet Nystatin Cream 30 gm [Nystop 30 gm Cream] 1 gm TOP BID 30 Days #1 unit Continue Fluoxetine HCl [Prozac] 40 mg PO DAILY ARIPiprazole [Abilify] 5 mg PO DAILY Albuterol Common Canister [Ventolin Common Canister] 2 puff IH Q4HPRN PRN PRN Reason: wheezing lisinopriL [Lisinopril] 40 mg PO DAILY buPROPion HCL [Bupropion Xl] 150 mg PO DAILY Atorvastatin Calcium 20 mg PO DAILY Montelukast Sodium 10 mg [Singulair 10 MG] 10 mg PO QHS Metformin HCl [Metformin ER Gastric] 500 mg PO BID Oxybutynin Chloride Xl 5 mg [Ditropan XL 5 MG] 5 mg PO BID Insulin Lispro [Insulin Lispro Kwikpen U-100] 10 unit SQ TIDWMEALS Additional Instructions: Follow up with GI and PCP Op as scheduled. Follow up with: DOCTOR,NO FAMILY [Primary Care Provider] - YOU BERGMAN NP [NON-STAFF PHY W/O PRIVILEGES] - 02/10/24 2:30 pm
[2024-02-03] MEDS: NYSTOP 30 GM CREAM TOP SCH (12:25)
[2024-02-03 13:13] VITALS: BP 130/72; PULSE 83; TEMP 98.4; O2SAT 98
== END 2024-02-03 13:55 | disposition home or self-care (01) ==
LOC: ED 19:17 → MED SURG 02-02 01:57
PROVIDERS: ADMIT Internal Medicine; ATTEND Internal Medicine
DX: K56.600 Partial intestinal obstruction, unspecified as to cause (principal); K52.9 Noninfective gastroenteritis and colitis, unspecified; D64.9 Anemia, unspecified; R11.10 Vomiting, unspecified; I10 Essential (primary) hypertension; E78.5 Hyperlipidemia, unspecified; F41.9 Anxiety disorder, unspecified; N39.0 Urinary tract infection, site not specified; E11.9 Type 2 diabetes mellitus without complications; K50.90 Crohn's disease, unspecified, without complications; R10.32 Left lower quadrant pain; B37.2 Candidiasis of skin and nail; F17.200 Nicotine dependence, unspecified, uncomplicated; Z79.899 Other long term (current) drug therapy
CPT/HCPCS: 0241U; 36000; 36415; 74018; 74176; 80053; 81001; 82150; 82274; 82607; 82728; 82746; 83036; 83540; 83550; 83690; 83880; 85025; 85027; 87086; 94760; 96374; 96375; 99285; Q3014; J0360; J1956; J2405; A9270-GY; G0328